=== PATIENT | male | born 1955 | race Hispanic/Latino ===

== ENCOUNTER 2017-10-06 08:31 | Day surgery (SDC) | payer MEDICARE ==
[2017-10-06 09:21] LABS: Basophils % (Auto) 0.9 % (0.0-1.8); Eosinophils # (Auto) 0.1 K/mm3 (0.0-0.4); Eosinophils % (Auto) 2.4 % (0.0-4.3); Hematocrit 40.5 % (35.5-45.6); Hemoglobin 13.8 gm/dl (11.8-15.2); Lymphocytes # (Auto) 0.7 K/mm3 (1.2-5.4); Lymphocytes % (Auto) 12.6 % (13.4-35.0); Mean Corpuscular HGB Conc 34 % (32-34); Mean Corpuscular Hemoglobin 30 pg (28-32); Mean Corpuscular Volume 89 fl (84-94); Monocytes # (Auto) 0.3 K/mm3 (0.0-0.8); Monocytes % (Auto) 5.2 % (0.0-7.3); Platelet Count 235 K/mm3 (140-440); Red Blood Count 4.58 M/mm3 (3.65-5.03)
[2017-10-06 09:32] LABS: BUN/Creatinine Ratio 17; Blood Urea Nitrogen 20 mg/dL (9-20); Calcium 9.2 mg/dL (8.4-10.2); Hemolysis Index 5
[2017-10-06 09:59] LABS: INR 1.01 (0.87-1.13)
[2017-10-06 10:00] LABS: Partial Thromboplastin Time 40.4 Sec. (24.2-36.6)
[2017-10-06] MEDS ORDERED: VERSED IV ONE ×2 (11:14→11:26)
[2017-10-06] MEDS ORDERED: SUBLIMAZE ONE ×3 (11:15→12:26)
[2017-10-06] MEDS ORDERED: XYLOCAINE 1%/ EPI 1:100,000 INFILTRATI ONE (11:16)
[2017-10-06] MEDS ORDERED: SUBLIMAZE IV ONE ×3 (11:26→12:19)
--- NOTE | 2017-10-06 13:03 | Short Stay Summary ---
Short Stay Documentation Date of service: 10/06/17 Narrative H&P: 62 year old male with UC and PSC s/p proctocolectomy and recurrent mucocele which has been drained multiple times. - Allergies and Medications Current Medications: Allergies No Known Allergies Allergy (Unverified 10/06/17 08:32) Home Medications Medication Instructions Recorded Confirmed Last Taken Type Fish Oil 1,000 mg Softgel 1 PO DAILY 10/06/17 10/05/17 History 1 tab Magnesium 1 PO DAILY 10/06/17 10/05/17 History 1 tab Multivitamin [Multiple Vitamins] 1 each PO DAILY 10/06/17 10/06/17 10/05/17 History 1 TAB Ursodiol [Jose] 250 mg PO TIDWM 10/06/17 10/06/17 10/05/17 History 250 mg Vitamin E 1 tab PO 10/06/17 09/28/17 History 1 TAB - Physical exam General appearance: no acute distress Lungs: Normal air movement Gastrointestinal: distended (lower abdomen) Extremities: normal temperature, normal color - Brief post op/procedure progress note Date of procedure: 10/06/17 Pre-op diagnosis: Mucocele Post-op diagnosis: same Procedure: CT guided drainage of the abdomen Anesthesia: local (w/ conscious sedation) Surgeon: SALVADOR ZAMUDIO Estimated blood loss: minimal Condition: stable - Hospital course Hospital course: Ready for discharge - Disposition Condition at discharge: Stable Disposition: DC-01 TO HOME OR SELFCARE - Discharge Diagnoses (1) Abdominal fluid collection Status: Acute (2) Ulcerative colitis Status: Acute (3) Primary sclerosing cholangitis Status: Acute Short Stay Discharge Plan Activity: advance as tolerated Weight Bearing Status: Weight Bear as Tolerated Diet: regular Wound: keep clean and dry, other (remove stitch from left buttocks in 5-7 days ; keep clean and dry until stitches removed) Follow up with: PRIMARY CARE, [Primary Care Provider] - 7 Days
[2017-10-06 13:52] VITALS: BP 141/90
--- NOTE | 2017-10-06 15:11 | Cat Scan Report ---
EXAM: CT guided abdominal fluid collection 16 Khmer drain placement CLINICAL INDICATION: Patient with ulcerative colitis, primary sclerosing cholangitis, status post proctocolectomy with recurrent mucocele which has been drained repeatedly in the past with severe mass effect symptoms who presented requesting drainage. Risks, benefits, and alternatives discussed. DATE: 10/06/17 VISITOR SERVICES INFORMATION ASSISTANT: SALVADOR ZAMUDIO MD MEDICATIONS: Conscious sedation using Versed and fentanyl was performed under guidance of radiologic nursing. Continuous cardiopulmonary monitoring was utilized. PROCEDURE: Following an explanation of the risks, benefits and alternatives; written informed consent was obtained. The patient was brought to the CT suite and placed in the prone position on the CT table. Trekking Guide CT was performed of the abdomen and pelvis. After determining the appropriate site, the skin was infiltrated with lidocaine and a finder needle was placed. Intermittent CT was performed until the desired position was identified. The 18 gauge trocar needle was inserted into the left buttocks into the fluid collection that extended into the abdomen and pelvis. Aspiration was performed and sent to the lab for analysis. J wire was then advanced through the needle and into the collection. The needle was exchanged for multiple dilators that were used to serially dilate over the wire. A 16 Fr APD drain was advanced over the wire and metal stiffener. The metal stiffener and wire were removed. CT scanning was performed. The pigtail was secured and aspirated until no more material could be aspirated. Sterile bandage was applied. The patient tolerated the procedure well. There were no immediate postprocedural complications. FINDINGS: 1. Initial CT demonstrates a large fluid collection in the abdomen and pelvic stent extending into the left buttocks and thigh region. There is a satisfactory window for CT drainage. 2. Intermittent CT demonstrates the 18 gauge needle was placed in the fluid collection. 3. Wire is coiled in the abdomen and pelvic fluid collection. 4. CT documents placement of a 16 Fr drain in the abdominal and pelvic fluid collection. 5. A total of 2850 mL of dark gelatinous material was aspirated through the drain and initial needle. IMPRESSION: Successful CT guided 16 Khmer drain placement in a large abdomen and pelvic mucocele.
--- NOTE | 2017-10-06 15:26 | Cat Scan Report ---
EXAM: CT of the abdomen and pelvis with and without contrast CLINICAL INDICATION: Ulcerative colitis, primary sclerosing cholangitis, colon cancer s/p proctocolectomy, abdominal pain with history of recurrent mucocele drained multiple times in the past DATE: 10/06/17 Interpreting radiologist: SALVADOR ZAMUDIO MD TECHNIQUE: 2.5 MM AXIAL ACQUISITIONS WERE OBTAINED FROM THE LUNG BASES TO THE PROXIMAL FEMUR WITH SAGITTAL AND CORONAL RECONSTRUCTIONS OBTAINED. THIS WAS PERFORMED WITH AND WITHOUT IV CONTRAST. NO ORAL CONTRAST WAS ADMINISTERED. CONTRAST: 100 mL of nonionic contrast FINDINGS: The lung bases demonstrate scarring at the bases with a few 2 mm or less scattered pulmonary nodules which can be compared on prior examinations. Review of prior CT reports mentions this in the past. The visualized portion of the heart is unremarkable. The liver has a nodular contour and is shrunken. The liver has been further evaluated with MRI performed at [place] in April. There is a focal 1 cm lesion in the left lobe of the liver which is low attenuating likely represents a cyst. There are a few focal hyper attenuating lesions which are nonspecific, but may represent regenerating nodules given the shrunken nature of the liver. Please refer to prior MRI at [place] for further details. The right kidney has a focal cyst and is otherwise unremarkable. Right adrenal gland is unremarkable. There is moderate left hydronephrosis with delayed contrast excretion of the left kidney and moderate left hydroureter. The left adrenal gland is unremarkable. Spleen is unremarkable. The pancreas is unremarkable. The abdominal aorta is unremarkable. The left common iliac artery is severely narrowed secondary to mass effect from the large abdominal fluid collection. There is a massive abdominal fluid collection which extends into the pelvis and subsequently extends into the left buttocks region as well as partially erodes the coccyx. This large fluid collection exerts mass effect on the left iliac artery and vein. The patient has an end ileostomy. The bladder is severely distorted with mass effect from the abdominal fluid collection. No aggressive osteolytic or osteoblastic lesions. IMPRESSION: 1. Massive abdominal fluid collection which extends into the abdomen and pelvis displacing most of the bowel, severely narrowing the left iliac artery and vein, partially eroding the coccyx, and exerting significant mass effect on the left ureter with resultant hydronephrosis and hydroureter. 2. The liver has a few focal hyper enhancing lesions which are nonspecific but may represent regenerating nodules. Recommend referring to prior MRI for further details and patient will likely require monitoring of the liver with MRI in the future. 3. Small scattered 2 mm or less pulmonary nodules. These will need be followed to determine stability.
== END 2017-10-06 14:10 | disposition home or self-care (01) ==
LOC: CATHLABREC 08:31
PROVIDERS: ATTEND Radiology Diagnostic Radiology
DX: R88.8 Abnormal findings in other body fluids and substances (principal); K51.90 Ulcerative colitis, unspecified, without complications; K83.0 Cholangitis; E78.00 Pure hypercholesterolemia, unspecified; Z79.899 Other long term (current) drug therapy; Z79.01 Long term (current) use of anticoagulants; Z85.528 Personal history of other malignant neoplasm of kidney; Z85.038 Personal history of other malignant neoplasm of large intestine; Z98.890 Other specified postprocedural states; Z80.9 Family history of malignant neoplasm, unspecified
CPT/HCPCS: 36415; 49083; 74178; 80048; 85025; 85610; 85730; 88112; 88305; C1769; J2250; J3010; Q9967; 10160; 77012

== ENCOUNTER 2018-01-20 06:12 | Day surgery (SDC) | payer MEDICARE ==
[2018-01-20 07:08] LABS: Hemoglobin 13.4 gm/dl (11.8-15.2); Mean Corpuscular HGB Conc 34 % (32-34); Mean Corpuscular Volume 93 fl (84-94); Platelet Count 321 K/mm3 (140-440); Red Blood Count 4.32 M/mm3 (3.65-5.03); Red Cell Distribution Width 15.1 % (13.2-15.2)
[2018-01-20 07:17] LABS: INR 0.93 (0.87-1.13); Partial Thromboplastin Time 31.9 Sec. (24.2-36.6)
[2018-01-20 08:19] LABS: Total Cells Counted 100
[2018-01-20 08:20] LABS: Platelet Estimate Cons; RBC Morphology Normal
[2018-01-20] MEDS ORDERED: VERSED IV ONE ×3 (09:29→10:30)
[2018-01-20] MEDS ORDERED: SUBLIMAZE IV ONE ×2 (09:29→10:17)
[2018-01-20] MEDS ORDERED: SUBLIMAZE ONE (10:00)
[2018-01-20] MEDS ORDERED: XYLOCAINE 1%/ EPI 1:100,000 INFILTRATI ONE (10:02)
[2018-01-20] MEDS ORDERED: VERSED ONE (10:48)
--- NOTE | 2018-01-20 11:47 | Short Stay Summary ---
Short Stay Documentation Date of service: 01/20/18 Narrative H&P: 62 year old male with recurrent mucocele who presents with abdominal pain. - History H&P: obtained from office - Allergies and Medications Current Medications: Allergies No Known Allergies Allergy (Unverified 10/06/17 08:32) Home Medications Medication Instructions Recorded Confirmed Last Taken Type Fish Oil 1,000 mg Softgel 1 tab PO DAILY 10/06/17 01/19/18 History Magnesium 1 tab PO DAILY 10/06/17 01/19/18 History Multivitamin [Multiple Vitamins] 1 each PO DAILY 10/06/17 01/20/18 01/19/18 History Ursodiol [Jose] 500 mg PO BIDWM 10/06/17 01/20/18 01/19/18 History Vitamin E 1 tab PO DAILY 10/06/17 01/19/18 History - Physical exam General appearance: mild distress (abdominal pain) Gastrointestinal: tenderness, distended - Brief post op/procedure progress note Date of procedure: 01/20/18 Pre-op diagnosis: Recurrent mucocele Post-op diagnosis: same Procedure: CT guided drainage of abdominal mucocele 4.5 L removed Anesthesia: local (w/ conscious sedation) Surgeon: SALVADOR ZAMUDIO Estimated blood loss: minimal Condition: stable - Hospital course Hospital course: Ready for discharge. - Disposition Condition at discharge: Stable Disposition: DC-01 TO HOME OR SELFCARE - Discharge Diagnoses (1) Abdominal fluid collection Status: Acute (2) Primary sclerosing cholangitis Status: Acute (3) Ulcerative colitis Status: Acute Short Stay Discharge Plan Activity: advance as tolerated Weight Bearing Status: Weight Bear as Tolerated Diet: regular Wound: keep clean and dry, other (remove stitches in 5 days) Follow up with: PRIMARY CARE, [Primary Care Provider] - 7 Days
--- NOTE | 2018-01-20 13:50 | Cat Scan Report ---
EXAM: CT guided abdominal fluid collection 16 Gabonese drain placement CLINICAL INDICATION: Patient with ulcerative colitis, primary sclerosing cholangitis, status post proctocolectomy with recurrent mucocele which has been drained repeatedly in the past with severe mass effect symptoms who presented requesting drainage. Risks, benefits, and alternatives discussed. DATE: 01/20/18 ICEBOX WORKER: SALVADOR ZAMUDIO MD MEDICATIONS: Conscious sedation using Versed and fentanyl was performed under guidance of radiologic nursing. Continuous cardiopulmonary monitoring was utilized. PROCEDURE: Following an explanation of the risks, benefits and alternatives; written informed consent was obtained. The patient was brought to the CT suite and placed in the prone position on the CT table. Maintenance Associate CT was performed of the abdomen and pelvis. After determining the appropriate site, the skin was infiltrated with lidocaine and a finder needle was placed. Intermittent CT was performed until the desired position was identified. The 18 gauge trocar needle was inserted into the left buttocks into the fluid collection that extended into the abdomen and pelvis. Aspiration was performed and sent to the lab for analysis. J wire was then advanced through the needle and into the collection. The needle was exchanged for multiple dilators that were used to serially dilate over the wire. A 16 Fr APD drain was advanced over the wire and metal stiffener. The metal stiffener and wire were removed. CT scanning was performed. The pigtail was secured and aspirated until no more material could be aspirated. Sterile bandage was applied. The patient tolerated the procedure well. There were no immediate postprocedural complications. FINDINGS: 1. Initial CT demonstrates a large fluid collection in the abdomen and pelvic extending into the left buttocks and thigh region. There is a satisfactory window for CT drainage. 2. Intermittent CT demonstrates the 18 gauge needle was placed in the fluid collection. 3. Wire is coiled in the abdomen and pelvic fluid collection. 4. CT documents placement of a 16 Fr drain in the abdominal and pelvic fluid collection. 5. A total of 4500 mL of dark gelatinous material was aspirated through the drain and initial needle. IMPRESSION: Successful CT guided 16 Gabonese drain placement in a large abdomen and pelvic mucocele.
[2018-01-20 13:53] VITALS: BP 128/86
== END 2018-01-20 13:15 | disposition home or self-care (01) ==
LOC: CATHLABREC 06:12 → EDSTATUS 08:30 → CATHLABREC 13:15
PROVIDERS: ATTEND Radiology Diagnostic Radiology
DX: K51.90 Ulcerative colitis, unspecified, without complications (principal); K83.09 Other cholangitis; E78.00 Pure hypercholesterolemia, unspecified; Z79.899 Other long term (current) drug therapy; Z90.5 Acquired absence of kidney; Z85.528 Personal history of other malignant neoplasm of kidney; Z85.038 Personal history of other malignant neoplasm of large intestine; Z92.21 Personal history of antineoplastic chemotherapy; Z98.890 Other specified postprocedural states; Z80.9 Family history of malignant neoplasm, unspecified
CPT/HCPCS: 36415; 49083; 85007; 85025; 85610; 85730; 88112; C1769; J2250; J3010; 10160; 77012

== ENCOUNTER 2018-08-21 07:42 | Day surgery (SDC) | payer MEDICARE ==
[2018-08-21] MEDS ORDERED: SUBLIMAZE IV ONE ×2 (08:27→13:00)
[2018-08-21] MEDS ORDERED: VERSED IV ONE ×2 (08:27→11:36)
[2018-08-21 08:49] LABS: Hematocrit 36.1 % (35.5-45.6); Hemoglobin 12.3 gm/dl (11.8-15.2); Mean Corpuscular HGB Conc 34 % (32-34); Mean Corpuscular Volume 94 fl (84-94); Platelet Count 270 K/mm3 (140-440); Red Blood Count 3.85 M/mm3 (3.65-5.03); Red Cell Distribution Width 14.6 % (13.2-15.2)
[2018-08-21] MEDS ORDERED: NACL 0.9% 500 ML 500 ML IV SCH (09:00)
[2018-08-21 09:02] LABS: INR 0.93 (0.87-1.13); Partial Thromboplastin Time 28.9 Sec. (24.2-36.6)
[2018-08-21 09:19] LABS: BUN/Creatinine Ratio 17; Blood Urea Nitrogen 19 mg/dL (9-20); Calcium 9.8 mg/dL (8.4-10.2); Hemolysis Index 14
[2018-08-21] MEDS ORDERED: SUBLIMAZE ONE ×2 (11:34→12:03)
[2018-08-21] MEDS ORDERED: XYLOCAINE 1%/ EPI 1:100,000 INFILTRATI ONE (12:04)
--- NOTE | 2018-08-21 12:58 | Short Stay Summary ---
Short Stay Documentation Date of service: 08/21/18 Narrative H&P: 62-year-old male with recurrent mucocele status post surgery with continued increasing in size of the mucocele. Presents for drainage. - History Principal diagnosis: Pelvic fluid collection, ulcerative colitis H&P: obtained from office - Allergies and Medications Current Medications: Allergies No Known Allergies Allergy (Unverified 10/06/17 08:32) Home Medications Medication Instructions Recorded Confirmed Last Taken Type Fish Oil 1,000 mg Softgel 1 tab PO DAILY 10/06/17 08/21/18 08/20/18 History 1 Magnesium 1 tab PO DAILY 10/06/17 08/21/18 08/20/18 History 1 Multivitamin [Multiple Vitamins] 1 each PO DAILY 10/06/17 08/21/18 08/20/18 History 1 Ursodiol [Jose] 500 mg PO BIDWM 10/06/17 08/21/18 08/20/18 History 500mg Vitamin E 1 tab PO DAILY 10/06/17 08/21/18 08/20/18 History 1 Active Medications Fentanyl (Sublimaze) 100 mcg IV ONCE ONE Stop: 08/21/18 13:01 Sodium Chloride (Nacl 0.9% 500 Ml) 500 mls @ 50 mls/hr IV DIRECT NIA Last Admin: 08/21/18 09:36 Dose: 50 mls/hr Documented by: - Physical exam General appearance: no acute distress Lungs: Normal air movement Gastrointestinal: other (pain with palpation of the pelvic) Extremities: normal temperature, normal color - Brief post op/procedure progress note Date of procedure: 08/21/18 Pre-op diagnosis: Pelvic mucocele/fluid collection Post-op diagnosis: same Procedure: 1.75 L removed with 16 Fr drain Anesthesia: local (w/ conscious sedation) Surgeon: SALVADOR ZAMUDIO Estimated blood loss: minimal Condition: stable - Hospital course Hospital course: Ready for discharge. - Disposition Condition at discharge: Stable Disposition: DC-01 TO HOME OR SELFCARE - Discharge Diagnoses (1) Abdominal fluid collection Status: Acute (2) Primary sclerosing cholangitis Status: Acute (3) Ulcerative colitis Status: Acute Short Stay Discharge Plan Activity: advance as tolerated Weight Bearing Status: Weight Bear as Tolerated Diet: regular Wound: keep clean and dry, other (remove stitches in 5 days, keep area clean and dry) Follow up with: ALBARO SANTOS MD [Primary Care Provider] - 7 Days
[2018-08-21 13:10] VITALS: BP 127/85
--- NOTE | 2018-08-22 15:09 | Cat Scan Report ---
EXAM: CT guided abdominal fluid collection 16 Prydeinig drain placement CLINICAL INDICATION: Patient with ulcerative colitis, primary sclerosing cholangitis, status post proctocolectomy with recurrent mucocele which has been drained repeatedly in the past with severe mass effect symptoms who presented requesting drainage. Risks, benefits, and alternatives discussed. DATE: 08/21/18 CHANGE OVER: SALVADOR ZAUMDIO MD MEDICATIONS: Conscious sedation using Versed and fentanyl was performed under guidance of radiologic nursing. Continuous cardiopulmonary monitoring was utilized. PROCEDURE: Following an explanation of the risks, benefits and alternatives; written informed consent was obtained. The patient was brought to the CT suite and placed in the prone position on the CT table. Supply And Distribution Manager CT was performed of the abdomen and pelvis. After determining the appropriate site, the skin was infiltrated with lidocaine and a finder needle was placed. Intermittent CT was performed until the desired position was identified. The 18 gauge trocar needle was inserted into the left buttock into the fluid collection that extended into the abdomen and pelvis. J wire was then advanced through the needle and into the collection. The needle was exchanged for multiple dilators that were used to serially dilate over the wire. A 16 Fr APD drain was advanced over the wire and metal stiffener. The metal stiffener and wire were removed. CT scanning was performed. The pigtail was secured and aspirated until no more material could be aspirated. Sterile bandage was applied. The patient tolerated the procedure well. There were no immediate postprocedural complications. FINDINGS: 1. Initial CT demonstrates a large fluid collection in the abdomen and pelvic extending into the left buttocks and thigh region. There is a satisfactory window for CT drainage. 2. Intermittent CT demonstrates the 18 gauge needle was placed in the fluid collection. 3. Wire is coiled in the abdomen and pelvic fluid collection. 4. CT documents placement of a 16 Fr drain in the abdominal and pelvic fluid collection. 5. A total of 1750 mL of dark gelatinous material was aspirated through the drain and initial needle. IMPRESSION: Successful CT guided 16 Prydeinig drain placement in a large abdomen and pelvic mucocele.
== END 2018-08-21 13:45 | disposition home or self-care (01) ==
LOC: CATHLABREC 07:42
PROVIDERS: ATTEND Radiology Diagnostic Radiology
DX: R19.00 Intra-abdominal and pelvic swelling, mass and lump, unspecified site (principal); Z79.899 Other long term (current) drug therapy; Z80.0 Family history of malignant neoplasm of digestive organs; Z87.442 Personal history of urinary calculi; Z90.5 Acquired absence of kidney; Z85.89 Personal history of malignant neoplasm of other organs and systems; Z98.890 Other specified postprocedural states; Z79.01 Long term (current) use of anticoagulants
CPT/HCPCS: 10160; 36415; 77012; 80048; 85027; 85610; 85730; C1769; J2250; J3010; J7040

== ENCOUNTER 2018-10-23 06:34 | Day surgery (SDC) | payer MEDICARE ==
[2018-10-23] MEDS ORDERED: SUBLIMAZE IV ONE (07:59)
[2018-10-23] MEDS ORDERED: VERSED IV ONE ×2 (07:59→10:34)
[2018-10-23 08:39] LABS: Hematocrit 37.8 % (35.5-45.6); Hemoglobin 12.7 gm/dl (11.8-15.2); Mean Corpuscular HGB Conc 34 % (32-34); Mean Corpuscular Volume 93 fl (84-94); Platelet Count 270 K/mm3 (140-440); Red Blood Count 4.09 M/mm3 (3.65-5.03); Red Cell Distribution Width 15.7 % (13.2-15.2)
[2018-10-23 08:50] LABS: INR 1.15 (0.87-1.13)
[2018-10-23 08:51] LABS: Partial Thromboplastin Time 33.1 Sec. (24.2-36.6)
[2018-10-23 08:52] LABS: BUN/Creatinine Ratio 24; Blood Urea Nitrogen 29 mg/dL (9-20); Calcium 9.5 mg/dL (8.4-10.2); Hemolysis Index 7
[2018-10-23] MEDS ORDERED: NACL 0.9% 500 ML 0 ML ONE (08:54)
[2018-10-23] MEDS ORDERED: SUBLIMAZE ONE (10:34)
[2018-10-23] MEDS ORDERED: VERSED IV NR (12:00)
[2018-10-23] MEDS ORDERED: SUBLIMAZE IV NR (12:00)
[2018-10-23 14:49] VITALS: BP 113/79
--- NOTE | 2018-10-23 15:26 | Short Stay Summary ---
Short Stay Documentation Date of service: 10/23/18 Narrative H&P: Patient returns for drainage of his mucocele which is a chronic process. Having abdominal pain and fullness. - History Principal diagnosis: Recurrent fluid collection (mucocele) H&P: obtained from office Past Medical History: other (UC with PSC and surgery including proctocolectomy and residual mucocele with recent chemotherapy infusion into the mucocele) - Allergies and Medications Current Medications: Allergies No Known Allergies Allergy (Unverified 10/06/17 08:32) Home Medications Medication Instructions Recorded Confirmed Last Taken Type Fish Oil 1,000 mg Softgel 1 tab PO DAILY 10/06/17 08/21/18 08/20/18 History 1 Magnesium 1 tab PO DAILY 10/06/17 08/21/18 08/20/18 History 1 Multivitamin [Multiple Vitamins] 1 each PO DAILY 10/06/17 08/21/18 08/20/18 History 1 Ursodiol [Jose] 500 mg PO BIDWM 10/06/17 08/21/18 08/20/18 History 500mg Vitamin E 1 tab PO DAILY 10/06/17 08/21/18 08/20/18 History 1 - Physical exam General appearance: mild distress (abdominal and left groin pain from mucocele) Lungs: Normal air movement Gastrointestinal: tenderness (along abdomen and left groin region) - Brief post op/procedure progress note Date of procedure: 10/23/18 Pre-op diagnosis: Recurrent abdominal fluid collection / mucocele Post-op diagnosis: same Procedure: CT guided drainage of the abdominal mucocele with a 16 Fr drain Anesthesia: local (w/ conscious sedation) Surgeon: SALVADOR ZAMUDIO Estimated blood loss: minimal Specimen disposition: discarded Condition: stable - Hospital course Hospital course: Tolerated procedure. Ready for discharge. - Disposition Condition at discharge: Good Disposition: DC-01 TO HOME OR SELFCARE - Discharge Diagnoses (1) Abdominal fluid collection Status: Acute (2) Primary sclerosing cholangitis Status: Acute (3) Ulcerative colitis Status: Acute Short Stay Discharge Plan Activity: advance as tolerated Weight Bearing Status: Weight Bear as Tolerated Diet: regular Wound: keep clean and dry, other (remove stitches in 5 days) Additional Instructions: Remove sutures in 5 days, follow up with Primary Medical Doctor in 1 week, return to Emergency Room (ER) for medical emergencies. Follow up with: ALBARO SANTOS MD [Primary Care Provider] - 7 Days
--- NOTE | 2018-10-31 11:26 | Cat Scan Report ---
EXAM: CT guided abdominal fluid collection 16 Danish drain placement CLINICAL INDICATION: Patient with ulcerative colitis, primary sclerosing cholangitis, status post proctocolectomy with recurrent mucocele which has been drained repeatedly in the past with severe mass effect symptoms who presented requesting drainage. Risks, benefits, and alternatives discussed. DATE: 10/23/18 MANAGER AUDIO: SALVADOR ZAMUDIO MD MEDICATIONS: Conscious sedation using Versed and fentanyl was performed under guidance of radiologic nursing. Continuous cardiopulmonary monitoring was utilized. PROCEDURE: Following an explanation of the risks, benefits and alternatives; written informed consent was obtained. The patient was brought to the CT suite and placed in the prone position on the CT table. Traveling Repair Accountant CT was performed of the abdomen and pelvis. After determining the appropriate site, the skin was infiltrated with lidocaine and a finder needle was placed. Intermittent CT was performed until the desired position was identified. The 18 gauge trocar needle was inserted into the left buttock into the fluid collection that extended into the abdomen and pelvis. J wire was then advanced through the needle and into the collection. The needle was exchanged for multiple dilators that were used to serially dilate over the wire. A 16 Fr APD drain was advanced over the wire and metal stiffener. The metal stiffener and wire were removed. CT scanning was performed. The pigtail was secured and aspirated until no more material could be aspirated. Sterile bandage was applied. The patient tolerated the procedure well. There were no immediate postprocedural complications. FINDINGS: 1. Initial CT demonstrates a large fluid collection in the abdomen and pelvic extending into the left buttocks and thigh region. There is a satisfactory window for CT drainage. 2. Intermittent CT demonstrates the 18 gauge needle was placed in the fluid collection. 3. Wire is coiled in the abdomen and pelvic fluid collection. 4. CT documents placement of a 16 Fr drain in the abdominal and pelvic fluid collection. 5. A total of 8200-4656 mL of dark gelatinous material was aspirated through the drain and initial needle. IMPRESSION: Successful CT guided 16 Danish drain placement in a large abdomen and pelvic mucocele.
== END 2018-10-23 13:40 | disposition home or self-care (01) ==
LOC: CATHLABREC 06:34 → EDSTATUS 08:30 → CATHLABREC 13:40
PROVIDERS: ATTEND Radiology Diagnostic Radiology
DX: R19.00 Intra-abdominal and pelvic swelling, mass and lump, unspecified site (principal); Z85.038 Personal history of other malignant neoplasm of large intestine; Z87.442 Personal history of urinary calculi; Z90.5 Acquired absence of kidney; Z98.890 Other specified postprocedural states; Z79.01 Long term (current) use of anticoagulants
CPT/HCPCS: 36415; 72192; 80048; 85027; 85610; 85730; C1769; J2250; J3010; 10160; 77012; J7040

== ENCOUNTER 2018-12-04 07:16 | Day surgery (SDC) | payer MEDICARE ==
[2018-12-04 08:34] LABS: Basophils % (Auto) 0.6 % (0.0-1.8); Eosinophils % (Auto) 0.1 % (0.0-4.3); Hematocrit 37.2 % (35.5-45.6); Hemoglobin 12.5 gm/dl (11.8-15.2); Lymphocytes # (Auto) 0.9 K/mm3 (1.2-5.4); Lymphocytes % (Auto) 15.1 % (13.4-35.0); Mean Corpuscular HGB Conc 34 % (32-34); Mean Corpuscular Volume 91 fl (84-94); Monocytes # (Auto) 0.4 K/mm3 (0.0-0.8); Monocytes % (Auto) 6.4 % (0.0-7.3); Platelet Count 303 K/mm3 (140-440); Red Blood Count 4.08 M/mm3 (3.65-5.03); Red Cell Distribution Width 15.5 % (13.2-15.2)
[2018-12-04 08:37] LABS: INR 1.07 (0.87-1.13)
--- NOTE | 2018-12-04 10:05 | Short Stay Summary ---
Short Stay Documentation Date of service: 12/04/18 Narrative H&P: 63-year-old male with history of ulcerative colitis status post proctocolectomy with end colostomy with residual mucocele and pseudomyxoma of the cyst who has been refractory to all surgical attempts to remove cyst and is palliated through CT-guided drainage of the mucocele. - History Principal diagnosis: pseudomyxoma peritonei Past Medical History: cancer (story of colon cancer), liver disease Past Surgical History: bowel surgery, Other (stents of bowel surgery) Social history: - Allergies and Medications Current Medications: Allergies acetaminophen [From Percocet] Allergy (Unverified 12/04/18 07:17) Itching oxycodone [From Percocet] Allergy (Unverified 12/04/18 07:17) Itching Home Medications Medication Instructions Recorded Confirmed Last Taken Type Fish Oil 1,000 mg Softgel 1 tab PO DAILY 10/06/17 12/04/18 12/03/18 History Magnesium 1 tab PO DAILY 10/06/17 12/04/18 12/03/18 History Multivitamin [Multiple Vitamins] 1 each PO DAILY 10/06/17 12/04/18 12/03/18 History Ursodiol [Jose] 500 mg PO BIDWM 10/06/17 12/04/18 12/03/18 History Vitamin E 1 tab PO DAILY 10/06/17 12/04/18 12/03/18 History - Physical exam General appearance: mild distress (lower abdominal/pelvic discomfort) Gastrointestinal: distended (lower abdominal/pelvic) - Brief post op/procedure progress note Date of procedure: 12/04/18 Pre-op diagnosis: pseudomyxoma peritonei Post-op diagnosis: same Procedure: CT-guided drainage of abdominal fluid collection Anesthesia: local (with conscious sedation) Surgeon: SALVADOR ZAMUDIO Estimated blood loss: minimal Condition: stable - Hospital course Hospital course: Tolerated procedure without issue. - Disposition Condition at discharge: Stable Disposition: DC-01 TO HOME OR SELFCARE - Discharge Diagnoses (1) Abdominal fluid collection Status: Acute (2) Primary sclerosing cholangitis Status: Acute (3) Ulcerative colitis Status: Acute Short Stay Discharge Plan Activity: advance as tolerated Weight Bearing Status: Weight Bear as Tolerated Diet: regular Wound: keep clean and dry, other (remove stitches in 7 days ; remove tegaderm in 24-48 hrs) Follow up with: ALBARO SANTOS MD [Primary Care Provider] - 7 Days
[2018-12-04] MEDS ORDERED: MIDAZOLAM 5 MG/5 ML INJ MDV IV NR ×2 (10:50→13:00)
[2018-12-04] MEDS ORDERED: fentaNYL 100 MCG/2 ML INJ IV NR (10:50)
[2018-12-04] MEDS ORDERED: LIDOCAINE 1%/EPINEPHRINE 1:100,000 VIAL (20 ML) INFILTRATI ONE (11:53)
[2018-12-04] MEDS ORDERED: fentaNYL 100 MCG/2 ML INJ ONE (12:03)
[2018-12-04] MEDS ORDERED: SODIUM CHLORIDE 0.9% 1000 ML 1,000 ML ONE (12:13)
[2018-12-04] MEDS ORDERED: fentaNYL 100 MCG/2 ML INJ IV ONE (13:45)
[2018-12-04] MEDS ORDERED: SODIUM CHLORIDE 0.9% 1000 ML 1,000 ML IV ONE (13:45)
[2018-12-04 13:55] VITALS: BP 116/68
[2018-12-04 14:10] LABS: BUN/Creatinine Ratio TNR; Blood Urea Nitrogen TNR mg/dL (9-20); Calcium TNR mg/dL (8.4-10.2); Hemolysis Index TNR
--- NOTE | 2018-12-04 14:49 | Cat Scan Report ---
CT ABDOMEN AND PELVIS WITH CONTRAST HISTORY: Pseudomyxoma peritonei, chronic. Primary sclerosing cholangitis. COMPARISON: 06/06/2017 TECHNIQUE: Axial CT images were obtained through the abdomen and pelvis after 100 cc of Omnipaque 300 intravenously. Sagittal and coronal reformatted images. All CT scans at this location are performed using CT dose reduction for ALARA by means of automated exposure control. FINDINGS: CT ABDOMEN: Lung Bases: No significant abnormality. Liver: Liver is normal size. Mild surface lobularity to the liver could represent cirrhotic changes o r pseudocirrhosis. No focal liver mass is appreciated. Biliary: No significant abnormality. Spleen: No significant abnormality. Unenlarged. Pancreas: No significant abnormality. Adrenals: No significant abnormality. Kidneys: The right kidney and collecting system are unremarkable. 2.3 cm exophytic cyst from the infe rior pole is unchanged. Moderate to severe left hydronephrosis with diffuse left cortical thinning is also unchanged. This appears to be secondary to distal obstruction from a pelvic fluid collection. Lymphatics: No lymphadenopathy. Vasculature: No significant abnormality. Bowel/Peritoneum: Multiple abdominal surgeries are suspected. Ostomy site in the right lower quadrant is noted. There is no evidence for bowel obstruction or focal inflammation. CT PELVIS: : There is a moderate-sized fluid collection in the pelvis extending from the pelvic brim inferiorl y into the left gluteal subcutaneous tissues consistent with the patient's history of pseudomyxoma pe ritonei. This collection measures up to 11.6 x 7.5 cm in axial plane but has decreased significantly since the previous exam. This collection is decreased by at least 50-75%. No new collections are iden tified. The bladder is displaced anteriorly but grossly unremarkable. There appears to be obstruction of the distal left ureter at this level. Osseous Structures: No significant abnormality. Additional Findings: None IMPRESSION: Pseudomyxoma peritonei as described above which has decreased since the comparison exam. Signer Name: aMrk Reynolds Jr, MD Signed: 12/04/2018 2:44 PM Workstation Name: [id number]
--- NOTE | 2018-12-05 15:30 | Cat Scan Report ---
EXAM: CT guided abdominal fluid collection 16 Gabonese drain placement CLINICAL INDICATION: Patient with ulcerative colitis, primary sclerosing cholangitis, status post proctocolectomy with recurrent mucocele which has been drained repeatedly in the past with severe mass effect symptoms who presented requesting drainage. Risks, benefits, and alternatives discussed. DATE: 12/04/18 AUTOMATION LEAD: SALVADOR ZAMUDIO MD MEDICATIONS: Conscious sedation using Versed and fentanyl was performed under guidance of radiologic nursing. Continuous cardiopulmonary monitoring was utilized. PROCEDURE: Following an explanation of the risks, benefits and alternatives; written informed consent was obtained. The patient was brought to the CT suite and placed in the prone position on the CT table. Open Hearth Furnace Operator Helper CT was performed of the abdomen and pelvis. After determining the appropriate site, the skin was infiltrated with lidocaine and a finder needle was placed. Intermittent CT was performed until the desired position was identified. The 18 gauge trocar needle was inserted into the left buttock into the fluid collection that extended into the abdomen and pelvis. J wire was then advanced through the needle and into the collection. The needle was exchanged for multiple dilators that were used to serially dilate over the wire. A 16 Fr APD drain was advanced over the wire and metal stiffener. The metal stiffener and wire were removed. CT scanning was performed. The pigtail was secured and aspirated until no more material could be aspirated. Sterile bandage was applied. The patient tolerated the procedure well. There were no immediate postprocedural complications. FINDINGS: 1. Initial CT demonstrates a large fluid collection in the abdomen and pelvic extending into the left buttocks and thigh region. There is a satisfactory window for CT drainage. 2. Intermittent CT demonstrates the 18 gauge needle was placed in the fluid collection. 3. Wire is coiled in the abdomen and pelvic fluid collection. 4. CT documents placement of a 16 Fr drain in the abdominal and pelvic fluid collection. 5. A total of 6751-7121 mL of dark gelatinous material was aspirated through the drain and initial needle. IMPRESSION: Successful CT guided 16 Gabonese drain placement in a large abdomen and pelvic mucocele.
== END 2018-12-04 14:15 | disposition home or self-care (01) ==
LOC: CATHLABREC 07:16 → EDSTATUS 08:30 → CATHLABREC 14:15
PROVIDERS: ATTEND Radiology Diagnostic Radiology
DX: R19.00 Intra-abdominal and pelvic swelling, mass and lump, unspecified site (principal); K51.90 Ulcerative colitis, unspecified, without complications; K83.09 Other cholangitis; Z90.49 Acquired absence of other specified parts of digestive tract
CPT/HCPCS: 36415; 49418; 74177; 77012; 80048; 85025; 85610; C1769; J2250; J3010; J7030; Q9967; 10160

== ENCOUNTER 2019-01-02 07:45 | Day surgery (SDC) | payer MEDICARE ==
[2019-01-02] MEDS ORDERED: fentaNYL 100 MCG/2 ML INJ IV ONE ×2 (08:47→12:00)
[2019-01-02] MEDS ORDERED: MIDAZOLAM 5 MG/5 ML INJ MDV IV ONE (08:47)
[2019-01-02 09:30] LABS: BUN/Creatinine Ratio 26; Blood Urea Nitrogen 31 mg/dL (9-20); Calcium 9.2 mg/dL (8.4-10.2); Hemolysis Index 68
[2019-01-02 09:31] LABS: INR 1.15 (0.87-1.13)
[2019-01-02 09:32] LABS: Partial Thromboplastin Time 42.5 Sec. (24.2-36.6)
[2019-01-02 09:45] LABS: Hematocrit 36.4 % (35.5-45.6); Mean Corpuscular HGB Conc 33 % (32-34); Mean Corpuscular Volume 92 fl (84-94); Platelet Count 284 K/mm3 (140-440); Red Blood Count 3.97 M/mm3 (3.65-5.03)
[2019-01-02] MEDS ORDERED: LIDOCAINE 1%/EPINEPHRINE 1:100,000 VIAL (20 ML) INFILTRATI ONE (10:45)
[2019-01-02] MEDS ORDERED: fentaNYL 100 MCG/2 ML INJ ONE (11:00)
[2019-01-02 11:16] LABS: Band Neutrophils # (Manual) 0.1 K/mm3; Basophils % (Manual) 0 % (0.0-1.8); Eosinophils % (Manual) 0 % (0.0-4.3); Platelet Estimate Consistent w Auto; RBC Morphology Normal; Total Cells Counted 100
--- NOTE | 2019-01-02 12:17 | Short Stay Summary ---
Short Stay Documentation Date of service: 01/02/19 Narrative H&P: 63-year-old male with history of ulcerative colitis status post proctocolectomy with end colostomy with residual mucocele and pseudomyxoma of the cyst who has been refractory to all surgical attempts to remove cyst and is palliated through CT-guided drainage of the mucocele. - History Principal diagnosis: Pseudomyxoma peritonei Past Medical History: cancer (history of colon cancer), liver disease (PSC) Past Surgical History: bowel surgery, Other (bladder surgery) Social history: - Allergies and Medications Current Medications: Allergies acetaminophen [From Percocet] Allergy (Verified 12/05/18 06:57) Itching oxycodone [From Percocet] Allergy (Verified 12/05/18 06:57) Itching Home Medications Medication Instructions Recorded Confirmed Last Taken Type Fish Oil 1,000 mg Softgel 1 tab PO DAILY 10/06/17 01/02/19 01/01/19 History 1 Magnesium 1 tab PO DAILY 10/06/17 01/02/19 01/01/19 History 1 Multivitamin [Multiple Vitamins] 1 each PO DAILY 10/06/17 01/02/19 01/01/19 History 1 Ursodiol [Jose] 500 mg PO BIDWM 10/06/17 01/02/19 01/01/19 History 500 mg Vitamin E 1 tab PO DAILY 10/06/17 01/02/19 01/01/19 History 1 - Physical exam General appearance: no acute distress Lungs: Normal air movement Gastrointestinal: other (lower abdominal distention/discomfort and buttocks discomfort) - Brief post op/procedure progress note Date of procedure: 01/02/19 Pre-op diagnosis: pseudomyxoma peritonei Post-op diagnosis: same Procedure: CT-guided drainage of abdominopelvic fluid collection Anesthesia: local (w/ conscious sedation) Surgeon: SALVADOR ZAMUDIO Estimated blood loss: minimal Condition: stable - Hospital course Hospital course: Tolerated procedure without issue. - Disposition Condition at discharge: Stable Disposition: DC-01 TO HOME OR SELFCARE - Discharge Diagnoses (1) Abdominal fluid collection Status: Acute (2) Primary sclerosing cholangitis Status: Acute (3) Ulcerative colitis Status: Acute Short Stay Discharge Plan Activity: advance as tolerated Weight Bearing Status: Weight Bear as Tolerated Wound: other (remove tegaderm in 24-48 hrs, remove stitches in 7 days) Follow up with: PRIMARY CARE,MD [Primary Care Provider] - 7 Days
[2019-01-02 12:21] VITALS: BP 111/79
--- NOTE | 2019-01-09 14:31 | Cat Scan Report ---
EXAM: CT guided abdominal fluid collection 16 Swedish drain placement CLINICAL INDICATION: Patient with ulcerative colitis, primary sclerosing cholangitis, status post proctocolectomy with recurrent mucocele which has been drained repeatedly in the past with severe mass effect symptoms who presented requesting drainage. Risks, benefits, and alternatives discussed. DATE: 01/02/19 ROLLOUT MANAGER: SALVADOR ZAMUDIO MD MEDICATIONS: Conscious sedation using Versed and fentanyl was performed under guidance of radiologic nursing. Continuous cardiopulmonary monitoring was utilized. PROCEDURE: Following an explanation of the risks, benefits and alternatives; written informed consent was obtained. The patient was brought to the CT suite and placed in the prone position on the CT table. Reimbursement Spec CT was performed of the abdomen and pelvis. After determining the appropriate site, the skin was infiltrated with lidocaine and a finder needle was placed. Intermittent CT was performed until the desired position was identified. The 18 gauge trocar needle was inserted into the left buttock into the fluid collection that extended into the abdomen and pelvis. J wire was then advanced through the needle and into the collection. The needle was exchanged for multiple dilators that were used to serially dilate over the wire. A 16 Fr APD drain was advanced over the wire and metal stiffener. The metal stiffener and wire were removed. CT scanning was performed. The pigtail was secured and aspirated until no more material could be aspirated. Sterile bandage was applied. The patient tolerated the procedure well. There were no immediate postprocedural complications. FINDINGS: 1. Initial CT demonstrates a large fluid collection in the abdomen and pelvic extending into the left buttocks and thigh region. There is a satisfactory window for CT drainage. 2. Intermittent CT demonstrates the 18 gauge needle was placed in the fluid collection. 3. Wire is coiled in the abdomen and pelvic fluid collection. 4. CT documents placement of a 16 Fr drain in the abdominal and pelvic fluid collection. 5. A total of 2250 mL of dark gelatinous material was aspirated through the drain and initial needle. IMPRESSION: Successful CT guided 16 Swedish drain placement in a large abdomen and pelvic mucocele.
== END 2019-01-02 12:35 | disposition home or self-care (01) ==
LOC: CATHLABREC 07:45 → EDSTATUS 08:30 → CATHLABREC 12:35
PROVIDERS: ATTEND Radiology Diagnostic Radiology
DX: K51.80 Other ulcerative colitis without complications (principal); R19.00 Intra-abdominal and pelvic swelling, mass and lump, unspecified site; K83.09 Other cholangitis; Z98.890 Other specified postprocedural states; Z93.3 Colostomy status; Z79.899 Other long term (current) drug therapy; Z85.068 Personal history of other malignant neoplasm of small intestine; Z87.442 Personal history of urinary calculi; Z94.0 Kidney transplant status; Z88.8 Allergy status to other drugs, medicaments and biological substances
CPT/HCPCS: 36415; 49406; 80048; 85007; 85025; 85610; 85730; C1769; J2250; J3010; 10160; 77012

== ENCOUNTER 2019-03-05 07:19 | Day surgery (SDC) | payer MEDICARE ==
[2019-03-05] MEDS ORDERED: MIDAZOLAM 5 MG/5 ML INJ MDV IV NR (08:30)
[2019-03-05 08:41] LABS: Calcium 9.8 mg/dL (8.4-10.2)
[2019-03-05] MEDS ORDERED: SODIUM CHLORIDE 0.9% 500 ML 0 ML ONE (08:53)
[2019-03-05 08:59] LABS: Basophils % (Auto) 0.7 % (0.0-1.8); Hematocrit 37.6 % (35.5-45.6); Hemoglobin 12.6 gm/dl (11.8-15.2); Lymphocytes # (Auto) 0.8 K/mm3 (1.2-5.4); Lymphocytes % (Auto) 14.5 % (13.4-35.0); Mean Corpuscular HGB Conc 34 % (32-34); Mean Corpuscular Volume 90 fl (84-94); Monocytes # (Auto) 0.4 K/mm3 (0.0-0.8); Monocytes % (Auto) 7.6 % (0.0-7.3); Platelet Count 290 K/mm3 (140-440); Red Blood Count 4.19 M/mm3 (3.65-5.03); Red Cell Distribution Width 15.4 % (13.2-15.2)
[2019-03-05] MEDS: fentaNYL 100 MCG/2 ML INJ IV NR (09:29)
--- NOTE | 2019-03-05 10:45 | Short Stay Summary ---
Short Stay Documentation Date of service: 03/05/19 Narrative H&P: 63-year-old male with history of ulcerative colitis status post proctocolectomy with end colostomy with residual mucocele and pseudomyxoma of the cyst who has been refractory to all surgical attempts to remove cyst and is palliated through CT-guided drainage of the mucocele. - History Principal diagnosis: Pseudomyxoma peritonei Past Medical History: cancer (history of colon cancer), liver disease (PSC) Past Surgical History: bowel surgery, Other (bladder surgery) Social history: - History Principal diagnosis: Pseudomyxoma peritonei - Allergies and Medications Current Medications: Allergies acetaminophen [From Percocet] Allergy (Verified 12/05/18 06:57) Itching oxycodone [From Percocet] Allergy (Verified 12/05/18 06:57) Itching Home Medications Medication Instructions Recorded Confirmed Last Taken Type Magnesium 1 tab PO DAILY 10/06/17 03/05/19 03/04/19 History 1 Multivitamin [Multiple Vitamins] 1 each PO DAILY 10/06/17 03/05/19 03/04/19 History 1 Ursodiol [Jose] 500 mg PO BIDWM 10/06/17 03/05/19 03/04/19 History 500 mg Cholecalciferol Vit D3 [Vitamin D3 50,000 units PO QWEEK 02/05/19 03/05/19 03/04/19 History 1,000 UNIT TAB] 1 cephALEXin [Keflex] 500 mg PO Q12HR #14 cap 03/05/19 Unknown Rx Active Medications Fentanyl (Sublimaze) 100 mcg IV ONCE NR Stop: 03/05/19 15:00 Midazolam HCl (Versed) 5 mg IV ONCE NR Stop: 03/05/19 15:00 - Physical exam General appearance: mild distress (left buttock pain and pelvic pain, chronic) Lungs: Normal air movement Gastrointestinal: other (pain at left distented buttock region and pelvic discomfort) - Brief post op/procedure progress note Date of procedure: 03/05/19 Pre-op diagnosis: Pneudomyxoma peritonei Post-op diagnosis: same Procedure: CT guided drainage of the pelvic fluid collection through a transgluteal approach with a 16 Fr APD drain Anesthesia: local (w/ conscious sedation) Surgeon: SALVADOR ZAMUDIO Estimated blood loss: minimal Condition: stable - Hospital course Hospital course: Tolerated procedure without issue. Ready for discharge. - Disposition Condition at discharge: Stable Disposition: DC-01 TO HOME OR SELFCARE - Discharge Diagnoses (1) Abdominal fluid collection Status: Acute (2) Primary sclerosing cholangitis Status: Acute (3) Ulcerative colitis Status: Acute Short Stay Discharge Plan Activity: advance as tolerated Weight Bearing Status: Weight Bear as Tolerated Diet: regular Wound: keep clean and dry (remove tegaderm in 24-48 hrs, remove stitches in 7 days) Follow up with: PRIMARY CARE, [Primary Care Provider] - 7 Days Prescriptions: cephALEXin [Keflex] 500 mg PO Q12HR #14 cap
[2019-03-05 13:48] VITALS: BP 135/88
--- NOTE | 2019-03-20 16:10 | Cat Scan Report ---
EXAM: CT guided abdominal fluid collection 16 Arabic drain placement CLINICAL INDICATION: Patient with ulcerative colitis, primary sclerosing cholangitis, status post proctocolectomy with recurrent mucocele which has been drained repeatedly in the past with severe mass effect symptoms who presented requesting drainage. Risks, benefits, and alternatives discussed. DATE: 03/05/2019 JUNIOR GRAPHIC DESIGNER: SALVADOR ZAMUDIO MD MEDICATIONS: Conscious sedation using Versed and fentanyl was performed under guidance of radiologic nursing. Continuous cardiopulmonary monitoring was utilized. PROCEDURE: Following an explanation of the risks, benefits and alternatives; written informed consent was obtained. The patient was brought to the CT suite and placed in the prone position on the CT table. Waste Water Operator CT was performed of the abdomen and pelvis. After determining the appropriate site, the skin was infiltrated with lidocaine and a finder needle was placed. Intermittent CT was performed until the desired position was identified. The 18 gauge trocar needle was inserted into the left buttock into the fluid collection that extended into the abdomen and pelvis. J wire was then advanced through the needle and into the collection. The needle was exchanged for multiple dilators that were used to serially dilate over the wire. A 16 Fr APD drain was advanced over the wire and metal stiffener. The metal stiffener and wire were removed. CT scanning was performed. The pigtail was secured and aspirated until no more material could be aspirated. Sterile bandage was applied. The patient tolerated the procedure well. There were no immediate postprocedural complications. FINDINGS: 1. Initial CT demonstrates a large fluid collection in the abdomen and pelvic extending into the left buttocks and thigh region. There is a satisfactory window for CT drainage. 2. Intermittent CT demonstrates the 18 gauge needle was placed in the fluid collection. 3. Wire is coiled in the abdomen and pelvic fluid collection. 4. CT documents placement of a 16 Fr drain in the abdominal and pelvic fluid collection. 5. A total of 2250 mL of dark gelatinous material was aspirated through the drain and initial needle. IMPRESSION: Successful CT guided 16 Arabic drain placement in a large abdomen and pelvic mucocele.
== END 2019-03-05 12:10 | disposition home or self-care (01) ==
LOC: CATHLABREC 07:19 → EDSTATUS 08:30 → CATHLABREC 12:10
PROVIDERS: ATTEND Radiology Diagnostic Radiology
DX: R19.00 Intra-abdominal and pelvic swelling, mass and lump, unspecified site (principal); K51.80 Other ulcerative colitis without complications; K83.09 Other cholangitis
CPT/HCPCS: 10160; 36415; 77012; 80048; 85025; J2250; J3010; J7040

== ENCOUNTER 2019-04-02 07:14 | Day surgery (SDC) | payer MEDICARE ==
[2019-04-02] MEDS ORDERED: fentaNYL 100 MCG/2 ML INJ IV NR (07:45)
[2019-04-02] MEDS ORDERED: MIDAZOLAM 5 MG/5 ML INJ MDV IV NR (07:45)
[2019-04-02] MEDS ORDERED: SODIUM CHLORIDE 0.9% 500 ML 500 ML IV SCH (08:00)
[2019-04-02 08:05] LABS: INR 1.02 (0.87-1.13)
[2019-04-02 08:06] LABS: Partial Thromboplastin Time 38.6 Sec. (24.2-36.6)
[2019-04-02 08:13] LABS: Basophils % (Auto) 0.6 % (0.0-1.8); Eosinophils % (Auto) 0.3 % (0.0-4.3); Hematocrit 41.3 % (35.5-45.6); Hemoglobin 13.8 gm/dl (11.8-15.2); Lymphocytes % (Auto) 14.2 % (13.4-35.0); Mean Corpuscular HGB Conc 33 % (32-34); Mean Corpuscular Volume 90 fl (84-94); Monocytes # (Auto) 0.5 K/mm3 (0.0-0.8); Monocytes % (Auto) 6.5 % (0.0-7.3); Platelet Count 363 K/mm3 (140-440); Red Cell Distribution Width 16.2 % (13.2-15.2)
[2019-04-02 08:15] LABS: Calcium 9.7 mg/dL (8.4-10.2)
[2019-04-02] MEDS ORDERED: fentaNYL 100 MCG/2 ML INJ IV ONE (09:08)
[2019-04-02] MEDS ORDERED: fentaNYL 100 MCG/2 ML INJ ONE (09:09)
--- NOTE | 2019-04-02 10:02 | Short Stay Summary ---
Short Stay Documentation Date of service: 04/02/19 Narrative H&P: 63-year-old male with history of ulcerative colitis status post proctocolectomy with end colostomy with residual mucocele and pseudomyxoma of the cyst who has been refractory to all surgical attempts to remove cyst and is palliated through CT-guided drainage of the mucocele. - History Principal diagnosis: Pseudomyxoma peritonei Past Medical History: cancer (history of colon cancer), liver disease (PSC) Past Surgical History: bowel surgery, Other (bladder surgery) Social history: - History Principal diagnosis: Pseudomyxoma peritonei - Allergies and Medications Current Medications: Allergies acetaminophen [From Percocet] Allergy (Verified 12/05/18 06:57) Itching oxycodone [From Percocet] Allergy (Verified 12/05/18 06:57) Itching Home Medications Medication Instructions Recorded Confirmed Last Taken Type Magnesium 1 tab PO DAILY 10/06/17 04/02/19 04/01/19 History 1 TAB Multivitamin [Multiple Vitamins] 1 each PO DAILY 10/06/17 04/02/19 04/01/19 History 1 TAB ursodioL [Jose] 500 mg PO BIDWM 10/06/17 04/02/19 04/01/19 History 1 tAB Cholecalciferol Vit D3 [Vitamin D3 50,000 units PO QWEEK 02/05/19 04/02/19 04/01/19 History 1,000 UNIT TAB] 1 TAB cephALEXin [Keflex] 500 mg PO Q12HR #14 cap 03/05/19 04/02/19 04/01/19 Rx 1 TAB Active Medications Fentanyl (Sublimaze) 100 mcg IV ONCE NR Stop: 04/02/19 13:00 Last Admin: 04/02/19 09:06 Dose: 100 mcg Documented by: Sodium Chloride (Nacl 0.9% 500 Ml) 500 mls @ 50 mls/hr IV DIRECT NIA Last Admin: 04/02/19 08:18 Dose: 50 mls/hr Documented by: Midazolam HCl (Versed) 5 mg IV ONCE NR Stop: 04/02/19 13:00 Last Admin: 04/02/19 09:10 Dose: 3 mg Documented by: - Physical exam General appearance: no acute distress Lungs: Normal air movement Gastrointestinal: distended - Brief post op/procedure progress note Date of procedure: 04/02/19 Pre-op diagnosis: Pseudomyxoma peritonei/recurrent mucocele/fluid collection Post-op diagnosis: same Procedure: 1. CT guided drainage of the pelvic fluid collection with a 16 Fr APD drain Anesthesia: local (w/ conscious sedation) Surgeon: SALVADOR ZAMUDIO Estimated blood loss: minimal Condition: stable - Hospital course Hospital course: Ready for discharge - Disposition Condition at discharge: Stable Disposition: DC-01 TO HOME OR SELFCARE - Discharge Diagnoses (1) Abdominal fluid collection Status: Acute (2) Primary sclerosing cholangitis Status: Acute (3) Ulcerative colitis Status: Acute Short Stay Discharge Plan Activity: advance as tolerated Weight Bearing Status: Weight Bear as Tolerated Diet: regular Wound: keep clean and dry, other (remove stitches in 7 days) Follow up with: PRIMARY CAREMD [Primary Care Provider] - 7 Days
[2019-04-02 10:59] VITALS: BP 115/77
--- NOTE | 2019-04-09 11:56 | Cat Scan Report ---
EXAM: CT guided abdominal fluid collection 16 Amharic drain placement CLINICAL INDICATION: Patient with ulcerative colitis, primary sclerosing cholangitis, status post proctocolectomy with recurrent mucocele which has been drained repeatedly in the past with severe mass effect symptoms who presented requesting drainage. Risks, benefits, and alternatives discussed. DATE: 04/02/2019 CALL CENTER COORDINATOR: SALVADOR ZAMUDIO MD MEDICATIONS: Conscious sedation using Versed and fentanyl was performed under guidance of radiologic nursing. Continuous cardiopulmonary monitoring was utilized. PROCEDURE: Following an explanation of the risks, benefits and alternatives; written informed consent was obtained. The patient was brought to the CT suite and placed in the prone position on the CT table. Electric Cell Tender CT was performed of the abdomen and pelvis. After determining the appropriate site, the skin was infiltrated with lidocaine and a finder needle was placed. Intermittent CT was performed until the desired position was identified. The 18 gauge trocar needle was inserted into the left buttock into the fluid collection that extended into the abdomen and pelvis. J wire was then advanced through the needle and into the collection. The needle was exchanged for multiple dilators that were used to serially dilate over the wire. A 16 Fr APD drain was advanced over the wire and metal stiffener. The metal stiffener and wire were removed. CT scanning was performed. The pigtail was secured and aspirated until no more material could be aspirated. Sterile bandage was applied. The patient tolerated the procedure well. There were no immediate postprocedural complications. FINDINGS: 1. Initial CT demonstrates a large fluid collection in the abdomen and pelvic extending into the left buttocks and thigh region. There is a satisfactory window for CT drainage. 2. Intermittent CT demonstrates the 18 gauge needle was placed in the fluid collection. 3. Wire is coiled in the abdomen and pelvic fluid collection. 4. CT documents placement of a 16 Fr drain in the abdominal and pelvic fluid collection. 5. A total of 2350 mL of dark gelatinous material was aspirated through the drain and initial needle. IMPRESSION: Successful CT guided 16 Amharic drain placement in a large abdomen and pelvic mucocele.
== END 2019-04-02 11:19 | disposition home or self-care (01) ==
LOC: CATHLABREC 07:14 → EDSTATUS 08:30 → CATHLABREC 11:19
PROVIDERS: ATTEND Radiology Diagnostic Radiology
DX: R19.00 Intra-abdominal and pelvic swelling, mass and lump, unspecified site (principal); I10 Essential (primary) hypertension; K51.90 Ulcerative colitis, unspecified, without complications; Z79.01 Long term (current) use of anticoagulants; Z88.8 Allergy status to other drugs, medicaments and biological substances; Z79.899 Other long term (current) drug therapy; Z85.038 Personal history of other malignant neoplasm of large intestine; Z87.442 Personal history of urinary calculi; Z90.5 Acquired absence of kidney; Z98.890 Other specified postprocedural states
CPT/HCPCS: 36415; 49406; 80048; 85025; 85610; 85730; J2250; J3010; J7040; 10160; 77012; C1769

== ENCOUNTER 2019-05-07 06:48 | Day surgery (SDC) | payer MEDICARE ==
[2019-05-07] MEDS ORDERED: MIDAZOLAM 5 MG/5 ML INJ MDV IV NR (07:18)
[2019-05-07] MEDS ORDERED: fentaNYL 100 MCG/2 ML INJ IV ONE (07:18)
[2019-05-07 07:38] LABS: Basophils # (Auto) 0.1 K/mm3 (0.0-0.1); Basophils % (Auto) 1.4 % (0.0-1.8); Hematocrit 39.3 % (35.5-45.6); Hemoglobin 13.2 gm/dl (11.8-15.2); Lymphocytes % (Auto) 16.7 % (13.4-35.0); Mean Corpuscular HGB Conc 34 % (32-34); Mean Corpuscular Volume 87 fl (84-94); Monocytes # (Auto) 0.4 K/mm3 (0.0-0.8); Monocytes % (Auto) 7.1 % (0.0-7.3); Platelet Count 247 K/mm3 (140-440); Red Blood Count 4.51 M/mm3 (3.65-5.03); Red Cell Distribution Width 14.8 % (13.2-15.2)
[2019-05-07 07:47] LABS: INR 1.02 (0.87-1.13)
[2019-05-07 07:48] LABS: Partial Thromboplastin Time 38.7 Sec. (24.2-36.6)
[2019-05-07] MEDS ORDERED: SODIUM CHLORIDE 0.9% 500 ML 500 ML IV SCH (08:00)
--- NOTE | 2019-05-07 10:52 | Short Stay Summary ---
Short Stay Documentation Date of service: 05/07/19 Narrative H&P: 63-year-old male with history of ulcerative colitis status post proctocolectomy with end colostomy with residual mucocele and pseudomyxoma of the cyst who has been refractory to all surgical attempts to remove cyst and is palliated through CT-guided drainage of the mucocele. - History Principal diagnosis: Pseudomyxoma peritonei Past Medical History: cancer (history of colon cancer), liver disease (PSC) Past Surgical History: bowel surgery, Other (bladder surgery) Social history: - History Principal diagnosis: Pseudomyxoma peritonei - Allergies and Medications Current Medications: Allergies acetaminophen [From Percocet] Allergy (Verified 12/05/18 06:57) Itching oxycodone [From Percocet] Allergy (Verified 12/05/18 06:57) Itching Home Medications Medication Instructions Recorded Confirmed Last Taken Type Magnesium 1 tab PO DAILY 10/06/17 05/07/19 05/06/19 History 1 tab Multivitamin [Multiple Vitamins] 1 each PO DAILY 10/06/17 05/07/19 05/06/19 History 1 tab ursodioL [Jose] 500 mg PO BIDWM 10/06/17 05/07/19 05/06/19 History 500 mg Cholecalciferol Vit D3 [Vitamin D3 50,000 units PO QWEEK 02/05/19 05/07/19 05/06/19 History 1,000 UNIT TAB] 30158 Active Medications Sodium Chloride (Nacl 0.9% 500 Ml) 500 mls @ 50 mls/hr IV DIRECT NIA Last Admin: 05/07/19 08:08 Dose: 50 mls/hr Documented by: - Physical exam General appearance: mild distress (Mild pelvic discomfort) Lungs: Normal air movement Gastrointestinal: distended (Left buttocks and pelvis, expected) Extremities: normal temperature, normal color - Brief post op/procedure progress note Date of procedure: 05/07/19 Pre-op diagnosis: Mucocele Post-op diagnosis: same Procedure: CT-guided placement of a 16 Israeli drain in an abdominal and pelvic fluid collection Anesthesia: local (With conscious sedation) Findings: 2250 to 2500 mL's of mucus removed Surgeon: SALVADOR ZAMUDIO Estimated blood loss: minimal Condition: stable - Hospital course Hospital course: Patient tolerated procedure well and is ready for discharge. - Disposition Condition at discharge: Stable Disposition: DC-01 TO HOME OR SELFCARE - Discharge Diagnoses (1) Abdominal fluid collection Status: Acute (2) Primary sclerosing cholangitis Status: Acute (3) Ulcerative colitis Status: Acute Short Stay Discharge Plan Activity: advance as tolerated Weight Bearing Status: Weight Bear as Tolerated Diet: regular Wound: keep clean and dry (Remove Tegaderm after 24 to 48 hours, remove stitches after 7 days) Follow up with: PRIMARY CARE, [Primary Care Provider] - 7 Days
[2019-05-07 11:43] VITALS: BP 146/93
--- NOTE | 2019-05-15 10:49 | Cat Scan Report ---
EXAM: CT guided abdominal fluid collection 16 [place]oese drain placement CLINICAL INDICATION: Patient with ulcerative colitis, primary sclerosing cholangitis, status post proctocolectomy with recurrent mucocele which has been drained repeatedly in the past with severe mass effect symptoms who presented requesting drainage. Risks, benefits, and alternatives discussed. DATE: 04/02/2019 OIL BURNER MECHANIC: SALVADOR ZAMUDIO MD MEDICATIONS: Conscious sedation using Versed and fentanyl was performed under guidance of radiologic nursing. Continuous cardiopulmonary monitoring was utilized. PROCEDURE: Following an explanation of the risks, benefits and alternatives; reba informed consent was obtained. The patient was brought to the CT suite and placed in the prone position on the CT table. Office Support Specialist CT was performed of the abdomen and pelvis. After determining the appropriate site, the skin was infiltrated with lidocaine and a finder needle was placed. Intermittent CT was performed until the desired position was identified. The 18 gauge trocar needle was inserted into the left buttock into the fluid collection that extended into the abdomen and pelvis. J wire was then advanced through the needle and into the collection. The needle was exchanged for multiple dilators that were used to serially dilate over the wire. A 16 Fr APD drain was advanced over the wire and metal stiffener. The metal stiffener and wire were removed. CT scanning was performed. The pigtail was secured and aspirated until no more material could be aspirated. Sterile bandage was applied. The patient tolerated the procedure well. There were no immediate postprocedural complications. FINDINGS: 1. Initial CT demonstrates a large fluid collection in the abdomen and pelvic extending into the left buttocks and thigh region. There is a satisfactory window for CT drainage. 2. Intermittent CT demonstrates the 18 gauge needle was placed in the fluid collection. 3. Wire is coiled in the abdomen and pelvic fluid collection. 4. CT documents placement of a 16 Fr drain in the abdominal and pelvic fluid collection. 5. A total of 2250 mL of dark gelatinous material was aspirated through the drain and initial needle. IMPRESSION: Successful CT guided 16 [place]oese drain placement in a large abdomen and pelvic mucocele
== END 2019-05-07 12:05 | disposition home or self-care (01) ==
LOC: CATHLABREC 06:48 → EDSTATUS 08:30 → CATHLABREC 12:05
PROVIDERS: ATTEND Radiology Diagnostic Radiology
DX: R19.00 Intra-abdominal and pelvic swelling, mass and lump, unspecified site (principal); K51.90 Ulcerative colitis, unspecified, without complications; I10 Essential (primary) hypertension; Z85.038 Personal history of other malignant neoplasm of large intestine; Z87.442 Personal history of urinary calculi; Z88.8 Allergy status to other drugs, medicaments and biological substances; Z79.899 Other long term (current) drug therapy; Z90.5 Acquired absence of kidney; Z98.890 Other specified postprocedural states
CPT/HCPCS: 36415; 49406; 85025; 85610; 85730; C1769; J2250; J3010; J7040; 10160; 77012

== ENCOUNTER 2019-06-18 07:12 | Outpatient (CLI) | payer MEDICARE ==
[2019-06-18] MEDS ORDERED: fentaNYL 100 MCG/2 ML INJ IV ONE (07:46)
[2019-06-18] MEDS ORDERED: MIDAZOLAM 5 MG/5 ML INJ MDV IV ONE (07:46)
[2019-06-18 08:00] LABS: Basophils % (Auto) 0.2 % (0.0-1.8); Eosinophils % (Auto) 0.1 % (0.0-4.3); Hemoglobin 13.6 gm/dl (11.8-15.2); Lymphocytes # (Auto) 0.8 K/mm3 (1.2-5.4); Lymphocytes % (Auto) 11.7 % (13.4-35.0); Mean Corpuscular HGB Conc 34 % (32-34); Mean Corpuscular Volume 90 fl (84-94); Monocytes # (Auto) 0.4 K/mm3 (0.0-0.8); Monocytes % (Auto) 5.6 % (0.0-7.3); Platelet Count 330 K/mm3 (140-440); Red Blood Count 4.46 M/mm3 (3.65-5.03); Red Cell Distribution Width 16.6 % (13.2-15.2)
[2019-06-18] MEDS ORDERED: SODIUM CHLORIDE 0.9% 500 ML 500 ML IV SCH (08:00)
[2019-06-18 08:10] LABS: INR 0.95 (0.87-1.13)
[2019-06-18 08:11] LABS: Partial Thromboplastin Time 37.1 Sec. (24.2-36.6)
[2019-06-18 08:12] LABS: Calcium 9.6 mg/dL (8.4-10.2)
[2019-06-18 12:12] VITALS: BP 131/89
--- NOTE | 2019-06-18 15:42 | Short Stay Summary ---
Short Stay Documentation Date of service: 06/18/19 Narrative H&P: 63-year-old male with history of ulcerative colitis status post proctocolectomy with end colostomy with residual mucocele and pseudomyxoma of the cyst who has been refractory to all surgical attempts to remove cyst and is palliated through CT-guided drainage of the mucocele. - History Principal diagnosis: Pseudomyxoma peritonei Past Medical History: cancer (history of colon cancer), liver disease (PSC) Past Surgical History: bowel surgery, Other (bladder surgery) Social history: - History Principal diagnosis: Pseudomyxoma peritonei - Allergies and Medications Current Medications: Allergies acetaminophen [From Percocet] Allergy (Verified 12/05/18 06:57) Itching oxycodone [From Percocet] Allergy (Verified 12/05/18 06:57) Itching Home Medications Medication Instructions Recorded Confirmed Last Taken Type Magnesium 1 tab PO DAILY 10/06/17 06/18/19 06/17/19 History Multivitamin [Multiple Vitamins] 1 each PO DAILY 10/06/17 06/18/19 06/17/19 History ursodioL [Jose] 500 mg PO BIDWM 10/06/17 06/18/19 06/17/19 History Cholecalciferol Vit D3 [Vitamin D3 50,000 units PO QWEEK 02/05/19 06/18/19 06/17/19 History 1,000 UNIT TAB] cephALEXin [Keflex] 500 mg PO BID 7 Days #14 cap 05/07/19 06/18/19 06/17/19 Rx - Physical exam General appearance: mild distress (abdominal discomfort and left buttock discomfort) Lungs: Normal air movement Gastrointestinal: other (discomfort) Extremities: normal temperature, normal color - Brief post op/procedure progress note Date of procedure: 06/18/19 Pre-op diagnosis: Recurrent mucocele Post-op diagnosis: same Procedure: CT guided drainage of the pelvic mucocele with 16 Fr APD drain Anesthesia: local (w/ conscious sedation) Surgeon: SALVADOR ZAMUDIO Estimated blood loss: minimal Condition: stable - Hospital course Hospital course: Tolerated procedure well. No issues. - Disposition Condition at discharge: Good Disposition: DC-01 TO HOME OR SELFCARE - Discharge Diagnoses (1) Abdominal fluid collection Status: Acute (2) Primary sclerosing cholangitis Status: Acute (3) Ulcerative colitis Status: Acute Short Stay Discharge Plan Activity: advance as tolerated Weight Bearing Status: Weight Bear as Tolerated Diet: regular Wound: keep clean and dry (remove stitches in 7 days. take tegaderm off in 24-48 hrs) Follow up with: PRIMARY CARE, [Primary Care Provider] - 7 Days
--- NOTE | 2019-06-30 15:18 | Cat Scan Report ---
EXAM: CT guided abdominal fluid collection 16 [place] drain placement CLINICAL INDICATION: Patient with ulcerative colitis, primary sclerosing cholangitis, status post proctocolectomy with recurrent mucocele which has been drained repeatedly in the past with severe mass effect symptoms who presented requesting drainage. Risks, benefits, and alternatives discussed. DATE: 06/18/2019 CLOUD PHYSICIST: SALVADOR ZAMUDIO MD MEDICATIONS: Conscious sedation using Versed and fentanyl was performed under guidance of radiologic nursing. Continuous cardiopulmonary monitoring was utilized. PROCEDURE: Following an explanation of the risks, benefits and alternatives; written informed consent was obtained. The patient was brought to the CT suite and placed in the prone position on the CT table. Telesales Manager CT was performed of the abdomen and pelvis. After determining the appropriate site, the skin was infiltrated with lidocaine and a finder needle was placed. Intermittent CT was performed until the desired position was identified. The 18 gauge trocar needle was inserted into the left buttock into the fluid collection that extended into the abdomen and pelvis. J wire was then advanced through the needle and into the collection. The needle was exchanged for multiple dilators that were used to serially dilate over the wire. A 16 Fr APD drain was advanced over the wire and metal stiffener. The metal stiffener and wire were removed. CT scanning was performed. The pigtail was secured and aspirated until no more material could be aspirated. Sterile bandage was applied. The patient tolerated the procedure well. There were no immediate postprocedural complications. FINDINGS: 1. Initial CT demonstrates a large fluid collection in the abdomen and pelvic extending into the left buttocks and thigh region. There is a satisfactory window for CT drainage. 2. Intermittent CT demonstrates the 18 gauge needle was placed in the fluid collection. 3. Wire is coiled in the abdomen and pelvic fluid collection. 4. CT documents placement of a 16 Fr drain in the abdominal and pelvic fluid collection. 5. A total of 2500 to 2750 mL of dark gelatinous material was aspirated through the drain and initial needle. IMPRESSION: Successful CT guided 16 [place] drain placement in a large abdomen and pelvic mucocele
== END 2019-06-18 12:49 | disposition home or self-care (01) ==
LOC: CT 07:12 → CATHLABREC 07:12
PROVIDERS: ATTEND Radiology Diagnostic Radiology
DX: R19.00 Intra-abdominal and pelvic swelling, mass and lump, unspecified site (principal); K51.80 Other ulcerative colitis without complications; I10 Essential (primary) hypertension; K83.01 Primary sclerosing cholangitis; Z85.068 Personal history of other malignant neoplasm of small intestine; Z87.442 Personal history of urinary calculi; Z93.6 Other artificial openings of urinary tract status; Z88.8 Allergy status to other drugs, medicaments and biological substances; Z79.899 Other long term (current) drug therapy; Z98.890 Other specified postprocedural states
CPT/HCPCS: 36415; 49406; 80048; 85025; 85610; 85730; C1769; J2250; J3010; J7040; 10160; 77012

== ENCOUNTER 2019-10-29 07:01 | Outpatient (CLI) | payer MEDICARE ==
[2019-10-29 07:48] LABS: Basophils # (Auto) 0.1 K/mm3 (0.0-0.1); Eosinophils % (Auto) 0.1 % (0.0-4.3); Hematocrit 39.4 % (35.5-45.6); Hemoglobin 13.7 gm/dl (11.8-15.2); Lymphocytes # (Auto) 1.1 K/mm3 (1.2-5.4); Lymphocytes % (Auto) 15.4 % (13.4-35.0); Mean Corpuscular HGB Conc 35 % (32-34); Mean Corpuscular Volume 87 fl (84-94); Monocytes # (Auto) 0.5 K/mm3 (0.0-0.8); Monocytes % (Auto) 6.4 % (0.0-7.3); Platelet Count 256 K/mm3 (140-440); Red Blood Count 4.51 M/mm3 (3.65-5.03); Red Cell Distribution Width 15.9 % (13.2-15.2)
[2019-10-29 07:57] LABS: INR 1.08 (0.87-1.13)
[2019-10-29 07:58] LABS: Partial Thromboplastin Time 38.6 Sec. (24.2-36.6)
[2019-10-29] MEDS ORDERED: fentaNYL 100 MCG/2 ML INJ IV ONE (08:00)
[2019-10-29] MEDS ORDERED: MIDAZOLAM 5 MG/5 ML INJ MDV IV ONE (08:00)
[2019-10-29] MEDS ORDERED: SODIUM CHLORIDE 0.9% 500 ML 500 ML IV SCH (08:00)
[2019-10-29 11:47] VITALS: BP 147/88
--- NOTE | 2019-10-29 13:27 | Short Stay Summary ---
Short Stay Documentation Date of service: 10/29/19 Narrative H&P: 63-year-old male with history of ulcerative colitis status post proctocolectomy with end colostomy with residual mucocele and pseudomyxoma of the cyst who has been refractory to all surgical attempts to remove cyst and is palliated through CT-guided drainage of the mucocele. - History Principal diagnosis: Pseudomyxoma peritonei Past Medical History: cancer (history of colon cancer), liver disease (PSC) Past Surgical History: bowel surgery, Other (bladder surgery) Social history: - History Principal diagnosis: Pseudomyxoma peritonei - Allergies and Medications Current Medications: Allergies No Known Allergies Allergy (Verified 10/29/19 07:47) Home Medications Medication Instructions Recorded Confirmed Last Taken Type Magnesium 1 tab PO DAILY 10/06/17 10/29/19 10/28/19 History 1 tab Multivitamin [Multiple Vitamins] 1 each PO DAILY 10/06/17 10/29/19 10/28/19 History 1 tab ursodioL [Jose] 500 mg PO BIDWM 10/06/17 10/29/19 10/28/19 History 500 mg Cholecalciferol Vit D3 [Vitamin D3 500 units PO BID 02/05/19 10/29/19 10/28/19 History 1,000 UNIT TAB] 500 units oxyCODONE [roxiCODONE] 5 mg PO Q4HR PRN #40 tablet 07/23/19 10/29/19 10/26/19 Rx 5 mg [place]-3 Fatty Acids/Fish Oil [Fish 1 tab PO DAILY 09/24/19 10/29/19 10/28/19 History Oil] 1 tab - Physical exam General appearance: mild distress (pelvic and buttock discomfort) Lungs: Normal air movement Heart: Regular rate Extremities: normal temperature, normal color - Brief post op/procedure progress note Date of procedure: 10/29/19 Pre-op diagnosis: Mucocele Post-op diagnosis: same Procedure: 16 Fr APD drain placement in the left buttock mucocele Anesthesia: local (w/ conscious sedation) Surgeon: SALVADOR ZAMUDIO Estimated blood loss: minimal Condition: stable - Hospital course Hospital course: Tolerated procedure well. No immediate post procedural issues. - Disposition Condition at discharge: Good Disposition: DC-01 TO HOME OR SELFCARE - Discharge Diagnoses (1) Abdominal fluid collection Status: Acute (2) Primary sclerosing cholangitis Status: Acute (3) Ulcerative colitis Status: Acute Short Stay Discharge Plan Activity: advance as tolerated Weight Bearing Status: Weight Bear as Tolerated Diet: regular Wound: keep clean and dry (remove stitches in 5 to 7 days. Take keflex. Keep clean and dry until healed.) Follow up with: PRIMARY CARE, [Primary Care Provider] - 7 Days
--- NOTE | 2019-11-12 14:57 | Cat Scan Report ---
EXAM: CT guided abdominal fluid collection 16 [place] drain placement CLINICAL INDICATION: Patient with ulcerative colitis, primary sclerosing cholangitis, status post proctocolectomy with recurrent mucocele which has been drained repeatedly in the past with severe mass effect symptoms who presented requesting drainage. Risks, benefits, and alternatives discussed. DATE: 10/29/2019 ENGINE TURNER: SALVADOR ZAMUDIO MD MEDICATIONS: Conscious sedation using Versed and fentanyl was performed under guidance of radiologic nursing. Continuous cardiopulmonary monitoring was utilized. PROCEDURE: Following an explanation of the risks, benefits and alternatives; written informed consent was obtained. The patient was brought to the CT suite and placed in the prone position on the CT table. Driver Salesman CT was performed of the abdomen and pelvis. After determining the appropriate site, the skin was infiltrated with lidocaine and a finder needle was placed. Intermittent CT was performed until the desired position was identified. The 18 gauge trocar needle was inserted into the left buttock into the fluid collection that extended into the abdomen and pelvis. J wire was then advanced through the needle and into the collection. The needle was exchanged for multiple dilators that were used to serially dilate over the wire. A 16 Fr APD drain was advanced over the wire and metal stiffener. The metal stiffener and wire were removed. CT scanning was performed. The pigtail was secured and aspirated until no more material could be aspirated. 2-0 Silk sutures were used to close the dermatotomy. Sterile bandage was applied. The patient tolerated the procedure well. There were no immediate postprocedural complications. FINDINGS: 1. Initial CT demonstrates a large fluid collection in the abdomen and pelvic extending into the left buttocks and thigh region. There is a satisfactory window for CT drainage. 2. Intermittent CT demonstrates the 18 gauge needle was placed in the fluid collection. 3. Wire is coiled in the abdomen and pelvic fluid collection. 4. CT documents placement of a 16 Fr drain in the abdominal and pelvic fluid collection. 5. A total of approximately 3 L of dark gelatinous material was aspirated through the drain and initial needle. IMPRESSION: Successful CT guided 16 [place] Island[place] drain placement in a large abdomen and pelvic mucocele
== END 2019-10-29 12:51 | disposition home or self-care (01) ==
LOC: CATHLABREC 07:01
PROVIDERS: ATTEND Radiology Diagnostic Radiology
DX: R19.00 Intra-abdominal and pelvic swelling, mass and lump, unspecified site (principal); K51.90 Ulcerative colitis, unspecified, without complications; I10 Essential (primary) hypertension; Z85.038 Personal history of other malignant neoplasm of large intestine; Z87.442 Personal history of urinary calculi; Z94.0 Kidney transplant status; Z79.899 Other long term (current) drug therapy; Z80.0 Family history of malignant neoplasm of digestive organs; Z98.890 Other specified postprocedural states
CPT/HCPCS: 10160; 36415; 77012; 85025; 85610; 85730; J2250; J3010; J7040

== ENCOUNTER 2019-11-26 06:50 | Outpatient (CLI) | payer MEDICARE ==
[2019-11-26] MEDS ORDERED: MIDAZOLAM 5 MG/5 ML INJ MDV IV NR (07:23)
[2019-11-26] MEDS ORDERED: fentaNYL 100 MCG/2 ML INJ IV NR ×2 (07:23→10:15)
[2019-11-26 07:48] LABS: Basophils # (Auto) 0.1 K/mm3 (0.0-0.1); Basophils % (Auto) 0.9 % (0.0-1.8); Eosinophils % (Auto) 0.1 % (0.0-4.3); Hematocrit 35.7 % (35.5-45.6); Hemoglobin 12.1 gm/dl (11.8-15.2); Lymphocytes # (Auto) 0.8 K/mm3 (1.2-5.4); Lymphocytes % (Auto) 12.2 % (13.4-35.0); Mean Corpuscular HGB Conc 34 % (32-34); Mean Corpuscular Volume 88 fl (84-94); Monocytes # (Auto) 0.5 K/mm3 (0.0-0.8); Platelet Count 221 K/mm3 (140-440); Red Blood Count 4.06 M/mm3 (3.65-5.03); Red Cell Distribution Width 14.7 % (13.2-15.2)
[2019-11-26 07:56] LABS: INR 1.1 (0.87-1.13)
[2019-11-26 07:57] LABS: Partial Thromboplastin Time 36.3 Sec. (24.2-36.6)
[2019-11-26] MEDS ORDERED: SODIUM CHLORIDE 0.9% 500 ML 500 ML IV SCH (08:00)
[2019-11-26] MEDS ORDERED: fentaNYL 100 MCG/2 ML INJ ONE (10:13)
[2019-11-26 11:47] VITALS: BP 153/95
--- NOTE | 2019-11-26 14:12 | Short Stay Summary ---
Short Stay Documentation Date of service: 11/26/19 Narrative H&P: 63-year-old male with history of ulcerative colitis status post proctocolectomy with end colostomy with residual mucocele and pseudomyxoma of the cyst who has been refractory to all surgical attempts to remove cyst and is palliated through CT-guided drainage of the mucocele. - History Principal diagnosis: Pseudomyxoma peritonei Past Medical History: cancer (history of colon cancer), liver disease (PSC) Past Surgical History: bowel surgery, Other (bladder surgery) Social history: - History Principal diagnosis: Pseudomyxoma peritonei - Allergies and Medications Current Medications: Allergies No Known Allergies Allergy (Verified 10/29/19 07:47) Home Medications Medication Instructions Recorded Confirmed Last Taken Type Magnesium 1 tab PO DAILY 10/06/17 11/26/19 11/25/19 History 1 tab Multivitamin [Multiple Vitamins] 1 each PO DAILY 10/06/17 11/26/19 11/25/19 History 1 tab ursodioL [Jose] 500 mg PO BIDWM 10/06/17 11/26/19 11/25/19 History 500 mg Cholecalciferol Vit D3 [Vitamin D3 500 units PO BID 02/05/19 11/26/19 11/25/19 History 1,000 UNIT TAB] 500 units oxyCODONE [roxiCODONE] 5 mg PO Q4HR PRN #40 tablet 07/23/19 11/26/19 11/23/19 Rx 5 mg [place]-3 Fatty Acids/Fish Oil [Fish 1 tab PO DAILY 09/24/19 11/26/19 11/25/19 History Oil] 1 tab - Physical exam General appearance: no acute distress HEENT: EOMI Lungs: Normal air movement Heart: Regular rate Gastrointestinal: tenderness (pelvic pressure and buttock pressure) Neurological: Normal gait - Brief post op/procedure progress note Date of procedure: 11/26/19 Pre-op diagnosis: Mucocele Post-op diagnosis: same Procedure: 16 Fr APD drain placement in the left buttock mucocele Anesthesia: local (w/ conscious sedation) Surgeon: SALVADOR ZAMUDIO Estimated blood loss: minimal Condition: stable - Hospital course Hospital course: Tolerated procedure well. Ready for discharge. - Disposition Condition at discharge: Good Disposition: DC-01 TO HOME OR SELFCARE - Discharge Diagnoses (1) Abdominal fluid collection Status: Acute (2) Primary sclerosing cholangitis Status: Chronic (3) Ulcerative colitis Status: Acute Short Stay Discharge Plan Activity: advance as tolerated Weight Bearing Status: Weight Bear as Tolerated Diet: regular Wound: keep clean and dry, other (remove stiches in 5 to 7 days) Additional Instructions: Keep suture site dry no baths, swimming or shower until after sutures removed. to remove sutures in [address] Zamudio for any problems S/S of infection IE redness swelling temp greater than 100. Follow up with: PRIMARY CAREMD [Primary Care Provider] - 7 Days
--- NOTE | 2019-11-26 16:15 | Cat Scan Report ---
EXAM: CT guided abdominal fluid collection 16 [place] drain placement CLINICAL INDICATION: Patient with ulcerative colitis, primary sclerosing cholangitis, status post proctocolectomy with recurrent mucocele which has been drained repeatedly in the past with severe mass effect symptoms who presented requesting drainage. Risks, benefits, and alternatives discussed. DATE: 11/26/2019 NATIONAL RECRUITER: SALVADOR ZAMUDIO MD MEDICATIONS: Conscious sedation using Versed and fentanyl was performed under guidance of radiologic nursing. Continuous cardiopulmonary monitoring was utilized. PROCEDURE: Following an explanation of the risks, benefits and alternatives; written informed consent was obtained. The patient was brought to the CT suite and placed in the prone position on the CT table. Workers Compensation Claims Adjuster CT was performed of the abdomen and pelvis. After determining the appropriate site, the skin was infiltrated with lidocaine and a finder needle was placed. Intermittent CT was performed until the desired position was identified. The 18 gauge trocar needle was inserted into the left buttock into the fluid collection that extended into the abdomen and pelvis. J wire was then advanced through the needle and into the collection. The needle was exchanged for multiple dilators that were used to serially dilate over the wire. A 16 Fr APD drain was advanced over the wire and metal stiffener. The metal stiffener and wire were removed. CT scanning was performed. The pigtail was secured and aspirated until no more material could be aspirated. 2-0 Silk sutures were used to close the dermatotomy. Sterile bandage was applied. The patient tolerated the procedure well. There were no immediate postprocedural complications. FINDINGS: 1. Initial CT demonstrates a large fluid collection in the abdomen and pelvic extending into the left buttocks and thigh region. There is a satisfactory window for CT drainage. 2. Intermittent CT demonstrates the 18 gauge needle was placed in the fluid collection. 3. Wire is coiled in the abdomen and pelvic fluid collection. 4. CT documents placement of a 16 Fr drain in the abdominal and pelvic fluid collection. 5. A total of approximately 2.6 L of dark gelatinous material was aspirated through the drain and initial needle. IMPRESSION: Successful CT guided 16 [place] drain placement in a large abdomen and pelvic mucocele
== END 2019-11-26 12:00 | disposition home or self-care (01) ==
LOC: CT 06:50 → CATHLABREC 06:50
PROVIDERS: ATTEND Radiology Diagnostic Radiology
DX: R19.00 Intra-abdominal and pelvic swelling, mass and lump, unspecified site (principal); K51.90 Ulcerative colitis, unspecified, without complications; I10 Essential (primary) hypertension; Z90.5 Acquired absence of kidney; Z79.899 Other long term (current) drug therapy; Z85.038 Personal history of other malignant neoplasm of large intestine; Z87.442 Personal history of urinary calculi; Z98.890 Other specified postprocedural states; Z80.0 Family history of malignant neoplasm of digestive organs
CPT/HCPCS: 10160; 36415; 77012; 85025; 85610; 85730; J0690; J2250; J3010; J7040

== ENCOUNTER 2019-12-17 07:09 | Outpatient (CLI) | payer MEDICARE ==
[2019-12-17 08:26] LABS: Hematocrit 34.1 % (35.5-45.6); Hemoglobin 11.8 gm/dl (11.8-15.2); Mean Corpuscular HGB Conc 35 % (32-34); Mean Corpuscular Volume 87 fl (84-94); Platelet Count 215 K/mm3 (140-440); Red Blood Count 3.93 M/mm3 (3.65-5.03); Red Cell Distribution Width 14.6 % (13.2-15.2)
[2019-12-17] MEDS ORDERED: fentaNYL 100 MCG/2 ML INJ IV SCH (08:30)
[2019-12-17] MEDS ORDERED: MIDAZOLAM 5 MG/5 ML INJ MDV IV SCH (08:30)
[2019-12-17 08:36] LABS: INR 1.02 (0.87-1.13)
[2019-12-17 08:37] LABS: Partial Thromboplastin Time 40.3 Sec. (24.2-36.6)
[2019-12-17] MEDS ORDERED: SODIUM CHLORIDE 0.9% 500 ML 0 ML ONE (08:43)
[2019-12-17] MEDS ORDERED: CLINDAMYCIN 600 MG/50 mL 600 MG/50 ML BAG IV NR (10:00)
--- NOTE | 2019-12-17 11:10 | Short Stay Summary ---
Short Stay Documentation Date of service: 12/17/19 Narrative H&P: 63-year-old male with history of ulcerative colitis status post proctocolectomy with end colostomy with residual mucocele and pseudomyxoma of the cyst who has been refractory to all surgical attempts to remove cyst and is palliated through CT-guided drainage of the mucocele. - History Principal diagnosis: Pseudomyxoma peritonei Past Medical History: cancer (history of colon cancer), liver disease (PSC) Past Surgical History: bowel surgery, Other (bladder surgery) Social history: - History Principal diagnosis: Pseudomyxoma peritonei - Allergies and Medications Current Medications: Allergies No Known Allergies Allergy (Verified 10/29/19 07:47) Home Medications Medication Instructions Recorded Confirmed Last Taken Type Magnesium 1 tab PO DAILY 10/06/17 11/26/19 11/25/19 History 1 tab Multivitamin [Multiple Vitamins] 1 each PO DAILY 10/06/17 11/26/19 11/25/19 History 1 tab ursodioL [Jose] 500 mg PO BIDWM 10/06/17 11/26/19 11/25/19 History 500 mg Cholecalciferol Vit D3 [Vitamin D3 500 units PO BID 02/05/19 11/26/19 11/25/19 History 1,000 UNIT TAB] 500 units oxyCODONE [roxiCODONE] 5 mg PO Q4HR PRN #40 tablet 07/23/19 11/26/19 11/23/19 Rx 5 mg [place]-3 Fatty Acids/Fish Oil [Fish 1 tab PO DAILY 09/24/19 11/26/19 11/25/19 History Oil] 1 tab Active Medications Fentanyl (Sublimaze) 100 mcg IV ONCE NIA Stop: 12/17/19 16:00 Last Admin: 12/17/19 09:35 Dose: 100 mcg Documented by: Clindamycin HCl (Cleocin 600 Mg/50 Ml) 600 mg in 50 mls @ 100 mls/hr IV PREOP NR; Protocol Stop: 12/17/19 23:59 Last Admin: 12/17/19 10:45 Dose: 100 mls/hr Documented by: Midazolam HCl (Versed) 5 mg IV ONCE NIA Stop: 12/17/19 16:00 Last Admin: 12/17/19 09:35 Dose: 2 mg Documented by: - Physical exam General appearance: mild distress (pelvic and left buttock distention with some discomfort) HEENT: EOMI Lungs: Normal air movement Heart: Regular rate Gastrointestinal: other (pelvic and left buttock distention with discomfort) Extremities: normal temperature, normal color - Brief post op/procedure progress note Date of procedure: 12/17/19 Pre-op diagnosis: Mucocele, recurrent, pseudomyxoma peritonei Post-op diagnosis: same Procedure: CT guided drain placement in a left pelvic mucocele with a 16 Fr APD drain through a left transgluteal approach Anesthesia: local (w/ conscious sedation) Surgeon: SALVADOR ZAMUDIO Estimated blood loss: minimal Specimen disposition: discarded Condition: stable - Hospital course Hospital course: Tolerated procedure well. No immediate post procedural complications. - Disposition Condition at discharge: Stable Disposition: DC-01 TO HOME OR SELFCARE - Discharge Diagnoses (1) Abdominal fluid collection Status: Acute (2) Ulcerative colitis Status: Acute (3) Primary sclerosing cholangitis Status: Chronic Short Stay Discharge Plan Activity: advance as tolerated Weight Bearing Status: Weight Bear as Tolerated Diet: regular Wound: keep clean and dry (remove stitches in 5-7 days) Follow up with: PRIMARY CAREMD [Primary Care Provider] - 7 Days
[2019-12-17 13:17] VITALS: BP 164/70
--- NOTE | 2020-01-01 16:20 | Operative Report ---
Operative Report Operative Report: EXAM: CT guided abdominal fluid collection 16 [place] drain placement CLINICAL INDICATION: Patient with ulcerative colitis, primary sclerosing cholangitis, status post proctocolectomy with recurrent mucocele which has been drained repeatedly in the past with severe mass effect symptoms who presented requesting drainage. Risks, benefits, and alternatives discussed. DATE: 12/17/2019 MANAGER BAKERY: SALVADOR ZAMUDIO MD MEDICATIONS: Conscious sedation using Versed and fentanyl was performed under guidance of radiologic nursing. Continuous cardiopulmonary monitoring was utilized. PROCEDURE: Following an explanation of the risks, benefits and alternatives; written informed consent was obtained. The patient was brought to the CT suite and placed in the prone position on the CT table. Rubber Mill Tender CT was performed of the abdomen and pelvis. After determining the appropriate site, the skin was infiltrated with lidocaine and a finder needle was placed. Intermittent CT was performed until the desired position was identified. The 18 gauge trocar needle was inserted into the left buttock into the fluid collection that extended into the abdomen and pelvis. J wire was then advanced through the needle and into the collection. The needle was exchanged for multiple dilators that were used to serially dilate over the wire. A 16 Fr APD drain was advanced over the wire and metal stiffener. The metal stiffener and wire were removed. CT scanning was performed. The pigtail was secured and aspirated until no more material could be aspirated. 2-0 Silk sutures were used to close the dermatotomy. Sterile bandage was applied. The patient tolerated the procedure well. There were no immediate postprocedural complications. FINDINGS: 1. Initial CT demonstrates a large fluid collection in the abdomen and pelvic extending into the left buttocks and thigh region. There is a satisfactory window for CT drainage. 2. Intermittent CT demonstrates the 18 gauge needle was placed in the fluid collection. 3. Wire is coiled in the abdomen and pelvic fluid collection. 4. CT documents placement of a 16 Fr drain in the abdominal and pelvic fluid collection. 5. A total of approximately 2.25 L of dark gelatinous material was aspirated through the drain and initial needle. IMPRESSION: Successful CT guided 16 [place] drain placement in a large abdomen and pelvic mucocele THIS WAS DICTATED 12/17/2019 IN THE PACS SYSTEM, BUT DUE TO SYSTEM ISSUES, COULD NOT BE SAVED.
== END 2019-12-17 07:10 | disposition home or self-care (01) ==
LOC: CATHLABREC 07:09
PROVIDERS: ATTEND Radiology Diagnostic Radiology
DX: R19.00 Intra-abdominal and pelvic swelling, mass and lump, unspecified site (principal); K51.90 Ulcerative colitis, unspecified, without complications; I10 Essential (primary) hypertension; Z79.899 Other long term (current) drug therapy; Z85.038 Personal history of other malignant neoplasm of large intestine; Z87.442 Personal history of urinary calculi; Z90.5 Acquired absence of kidney; Z98.890 Other specified postprocedural states; Z80.0 Family history of malignant neoplasm of digestive organs; Z93.3 Colostomy status
CPT/HCPCS: 10160; 36415; 77012; 85027; 85610; 85730; J2250; J3010; J7040

== ENCOUNTER 2020-01-14 06:52 | Outpatient (CLI) | payer MEDICARE ==
[2020-01-14] MEDS ORDERED: fentaNYL 100 MCG/2 ML INJ IV ONE ×2 (07:19→11:00)
[2020-01-14] MEDS ORDERED: MIDAZOLAM 5 MG/5 ML INJ MDV IV ONE (07:19)
[2020-01-14 07:46] LABS: Basophils % (Auto) 0.5 % (0.0-1.8); Eosinophils % (Auto) 0.4 % (0.0-4.3); Hematocrit 38.5 % (35.5-45.6); Mean Corpuscular HGB Conc 34 % (32-34); Mean Corpuscular Volume 88 fl (84-94); Monocytes # (Auto) 0.5 K/mm3 (0.0-0.8); Monocytes % (Auto) 7.3 % (0.0-7.3); Platelet Count 228 K/mm3 (140-440); Red Blood Count 4.38 M/mm3 (3.65-5.03); Red Cell Distribution Width 14.3 % (13.2-15.2)
[2020-01-14 07:53] LABS: INR 1.01 (0.87-1.13)
[2020-01-14 07:54] LABS: Partial Thromboplastin Time 40.2 Sec. (24.2-36.6)
[2020-01-14] MEDS ORDERED: CLINDAMYCIN 600 MG/50 mL 600 MG/50 ML BAG IV NR (08:00)
[2020-01-14] MEDS ORDERED: fentaNYL 100 MCG/2 ML INJ ONE (09:47)
[2020-01-14 11:04] VITALS: BP 161/100
--- NOTE | 2020-01-14 14:36 | Short Stay Summary ---
Short Stay Documentation Date of service: 01/14/20 Narrative H&P: 3-year-old male with history of ulcerative colitis status post proctocolectomy with end colostomy with residual mucocele and pseudomyxoma of the cyst who has been refractory to all surgical attempts to remove cyst and is palliated through CT-guided drainage of the mucocele. - History Principal diagnosis: Pseudomyxoma peritonei Past Medical History: cancer (history of colon cancer), liver disease (PSC) Past Surgical History: bowel surgery, Other (bladder surgery) Social history: - Allergies and Medications Current Medications: Allergies No Known Allergies Allergy (Verified 10/29/19 07:47) Home Medications Medication Instructions Recorded Confirmed Last Taken Type Magnesium 1 tab PO DAILY 10/06/17 01/14/20 01/13/20 History 1 tab Multivitamin [Multiple Vitamins] 1 each PO DAILY 10/06/17 01/14/20 01/13/20 History 1 tab ursodioL [Jose] 500 mg PO BIDWM 10/06/17 01/14/20 01/13/20 History 500 mg Cholecalciferol Vit D3 [Vitamin D3 500 units PO BID 02/05/19 01/14/20 01/13/20 History 1,000 UNIT TAB] 500 units oxyCODONE [roxiCODONE] 5 mg PO Q4HR PRN #40 tablet 07/23/19 01/14/20 01/12/20 Rx 5 mg [place]-3 Fatty Acids/Fish Oil [Fish 1 tab PO DAILY 09/24/19 01/14/20 01/13/20 History Oil] 1 tab - Physical exam General appearance: no acute distress Lungs: Normal air movement Gastrointestinal: other (distented left buttock region with discomfort) Extremities: normal temperature, normal color - Brief post op/procedure progress note Date of procedure: 01/14/20 Pre-op diagnosis: Mucocele Post-op diagnosis: same Procedure: 16 Fr APD drain placement in a left pelvic fluid collection Anesthesia: local (w/ conscious sedation) Surgeon: SALVADOR ZAMUDIO Estimated blood loss: minimal Specimen disposition: other (2.9 L removed) Condition: stable - Hospital course Hospital course: Ready for discharge. Tolerated procedure well. - Disposition Condition at discharge: Stable Disposition: DC-01 TO HOME OR SELFCARE - Discharge Diagnoses (1) Abdominal fluid collection Status: Acute (2) Ulcerative colitis Status: Acute (3) Primary sclerosing cholangitis Status: Chronic Short Stay Discharge Plan Activity: advance as tolerated Weight Bearing Status: Weight Bear as Tolerated Diet: regular Wound: keep clean and dry Additional Instructions: to remove sutures in 5 days. Keep site clean and dry sponge off until sutures removed . Report any S/S of infection redness swelling bleeding or temp greater than 100. Call DR Zamudio for any problems Follow up with: PRIMARY CARE, [Primary Care Provider] - 7 Days
--- NOTE | 2020-01-14 14:39 | Operative Report ---
Operative Report Operative Report: EXAM: CT guided abdominal fluid collection 16 Prydeinig drain placement CLINICAL INDICATION: Patient with ulcerative colitis, primary sclerosing cholangitis, status post proctocolectomy with recurrent mucocele which has been drained repeatedly in the past with severe mass effect symptoms who presented requesting drainage. Risks, benefits, and alternatives discussed. DATE: 01/14/2020 JAVA GRAILS DEVELOPER: SALVADOR ZAMUDIO MD MEDICATIONS: Conscious sedation using Versed and fentanyl was performed under guidance of radiologic nursing. Continuous cardiopulmonary monitoring was utilized. PROCEDURE: Following an explanation of the risks, benefits and alternatives; written informed consent was obtained. The patient was brought to the CT suite and placed in the prone position on the CT table. Health Care Manager CT was performed of the abdomen and pelvis. After determining the appropriate site, the skin was infiltrated with lidocaine and a finder needle was placed. Intermittent CT was performed until the desired position was identified. The 18 gauge trocar needle was inserted into the left buttock into the fluid collection that extended into the abdomen and pelvis. J wire was then advanced through the needle and into the collection. The needle was exchanged for multiple dilators that were used to serially dilate over the wire. A 16 Fr APD drain was advanced over the wire and metal stiffener. The metal stiffener and wire were removed. CT scanning was performed. The pigtail was secured and aspirated until no more material could be aspirated. 2-0 Silk sutures were used to close the dermatotomy. Sterile bandage was applied. The patient tolerated the procedure well. There were no immediate postprocedural complications. FINDINGS: 1. Initial CT demonstrates a large fluid collection in the abdomen and pelvic extending into the left buttocks and thigh region. There is a satisfactory window for CT drainage. 2. Intermittent CT demonstrates the 18 gauge needle was placed in the fluid collection. 3. Wire is coiled in the abdomen and pelvic fluid collection. 4. CT documents placement of a 16 Fr drain in the abdominal and pelvic fluid collection. 5. A total of approximately 2.9 L of dark gelatinous material was aspirated through the drain and initial needle. IMPRESSION: Successful CT guided 16 Prydeinig drain placement in a large abdomen and pelvic mucocele
== END 2020-01-14 11:20 | disposition home or self-care (01) ==
LOC: CATHLABREC 06:52
PROVIDERS: ATTEND Radiology Diagnostic Radiology
DX: R19.00 Intra-abdominal and pelvic swelling, mass and lump, unspecified site (principal); I10 Essential (primary) hypertension; K51.90 Ulcerative colitis, unspecified, without complications; Z85.038 Personal history of other malignant neoplasm of large intestine; Z79.899 Other long term (current) drug therapy; Z87.442 Personal history of urinary calculi; Z90.5 Acquired absence of kidney; Z80.0 Family history of malignant neoplasm of digestive organs
CPT/HCPCS: 10160; 36415; 77012; 85025; 85610; 85730; 96365; C1769; J2250; J3010

== ENCOUNTER 2020-02-04 07:22 | Outpatient (CLI) | payer MEDICARE ==
[2020-02-04] MEDS ORDERED: fentaNYL 100 MCG/2 ML INJ IV NR (08:10)
[2020-02-04] MEDS ORDERED: MIDAZOLAM 5 MG/5 ML INJ MDV IV NR (08:10)
[2020-02-04 08:50] LABS: Hematocrit 38.5 % (35.5-45.6); Hemoglobin 12.9 gm/dl (11.8-15.2); Mean Corpuscular HGB Conc 34 % (32-34); Mean Corpuscular Volume 88 fl (84-94); Platelet Count 232 K/mm3 (140-440); Red Blood Count 4.38 M/mm3 (3.65-5.03); Red Cell Distribution Width 15.2 % (13.2-15.2)
[2020-02-04] MEDS ORDERED: SODIUM CHLORIDE 0.9% 500 ML 500 ML IV SCH (09:00)
[2020-02-04 09:58] LABS: INR 1.03 (0.87-1.13)
[2020-02-04 09:59] LABS: Partial Thromboplastin Time 37.7 Sec. (24.2-36.6)
--- NOTE | 2020-02-04 13:11 | Short Stay Summary ---
Short Stay Documentation Date of service: 02/04/20 Narrative H&P: 64-year-old male with history of ulcerative colitis status post proctocolectomy with end colostomy with residual mucocele and pseudomyxoma of the cyst who has been refractory to all surgical attempts to remove cyst and is palliated through CT-guided drainage of the mucocele. - History Principal diagnosis: Pseudomyxoma peritonei Past Medical History: cancer (history of colon cancer), liver disease (PSC) Past Surgical History: bowel surgery, Other (bladder surgery) Social history: - Allergies and Medications Current Medications: Allergies No Known Allergies Allergy (Verified 10/29/19 07:47) Home Medications Medication Instructions Recorded Confirmed Last Taken Type Magnesium 1 tab PO DAILY 10/06/17 01/14/20 01/13/20 History 1 tab Multivitamin [Multiple Vitamins] 1 each PO DAILY 10/06/17 01/14/20 01/13/20 History 1 tab ursodioL [Jose] 500 mg PO BIDWM 10/06/17 01/14/20 01/13/20 History 500 mg Cholecalciferol Vit D3 [Vitamin D3 500 units PO BID 02/05/19 01/14/20 01/13/20 History 1,000 UNIT TAB] 500 units oxyCODONE [roxiCODONE] 5 mg PO Q4HR PRN #40 tablet 07/23/19 01/14/20 01/12/20 Rx 5 mg [place]-3 Fatty Acids/Fish Oil [Fish 1 tab PO DAILY 09/24/19 01/14/20 01/13/20 History Oil] 1 tab Active Medications Fentanyl (Fentanyl 100 Mcg/2 Ml Inj) 100 mcg IV ONCE NR Stop: 02/04/20 23:00 Last Admin: 02/04/20 10:03 Dose: 100 mcg Documented by: Sodium Chloride (Nacl 0.9% 500 Ml) 500 mls @ 50 mls/hr IV DIRECT NIA Midazolam HCl (Midazolam 5 Mg/5 Ml Inj Mdv) 5 mg IV ONCE NR Stop: 02/04/20 23:00 Last Admin: 02/04/20 10:03 Dose: 3 mg Documented by: - Physical exam General appearance: mild distress (left buttock discomfort) Lungs: Normal air movement Gastrointestinal: other (pelvic pressure and abdominal pressure) Extremities: normal temperature, normal color - Brief post op/procedure progress note Date of procedure: 02/04/20 Pre-op diagnosis: Pseudomyxoma peritonei, mucocele Post-op diagnosis: same Procedure: CT guided drainage of the left pelvic mucocele Anesthesia: local (w/ conscious sedation) Surgeon: SALVADOR ZAMUDIO Estimated blood loss: minimal Condition: stable - Hospital course Hospital course: Tolerated procedure well. No immediate post procedural complications. - Disposition Condition at discharge: Stable Disposition: DC-01 TO HOME OR SELFCARE - Discharge Diagnoses (1) Abdominal fluid collection Status: Acute (2) Ulcerative colitis Status: Acute (3) Primary sclerosing cholangitis Status: Chronic Short Stay Discharge Plan Activity: advance as tolerated Weight Bearing Status: Weight Bear as Tolerated Wound: keep clean and dry (remove stitches in 5-7 days) Additional Instructions: follow up with Primary Medical Doctor in 1 week, return to Emergency Room (ER) for medical emergency. Follow up with: PRIMARY MD BO [Primary Care Provider] - 7 Days
--- NOTE | 2020-02-04 13:12 | Operative Report ---
Operative Report Operative Report: EXAM: CT guided abdominal fluid collection 16 Occitan drain placement CLINICAL INDICATION: Patient with ulcerative colitis, primary sclerosing cholangitis, status post proctocolectomy with recurrent mucocele which has been drained repeatedly in the past with severe mass effect symptoms who presented requesting drainage. Risks, benefits, and alternatives discussed. DATE: 02/04/2020 STOCK HOLDER: SALVADOR ZAMUDIO MD MEDICATIONS: Conscious sedation using Versed and fentanyl was performed under guidance of radiologic nursing. Continuous cardiopulmonary monitoring was utilized. PROCEDURE: Following an explanation of the risks, benefits and alternatives; written informed consent was obtained. The patient was brought to the CT suite and placed in the prone position on the CT table. Silver Steward CT was performed of the abdomen and pelvis. After determining the appropriate site, the skin was infiltr ated with lidocaine and a finder needle was placed. Intermittent CT was performed until the desired position was identified. The 18 gauge trocar needle was inserted into the left buttock into the fluid collection that extended into the abdomen and pelvis. J wire was then advanced through the needle and into the collection. The needle was exchanged for multiple dilators that were used to serially dilate over the wire. A 16 Fr APD drain was advanced over the wire and metal stiffener. The metal stiffener and wire were removed. CT scanning was performed. The pigtail was secured and aspirated until no more material could be aspirated. 2-0 Silk sutures were used to close the dermatotomy. Sterile bandage was applied. The patient tolerated the procedure well. There were no immediate postprocedural complications. FINDINGS: 1. Initial CT demonstrates a large fluid collection in the abdomen and pelvic extending into the left buttocks and thigh region. There is a satisfactory window for CT drainage. 2. Intermittent CT demonstrates the 18 gauge needle was placed in the fluid collection. 3. Wire is coiled in the abdomen and pelvic fluid collection. 4. CT documents placement of a 16 Fr drain in the abdominal and pelvic fluid collection. 5. A total of approximately 2.8 L of dark gelatinous material was aspirated through the drain and initial needle. IMPRESSION: Successful CT guided 16 Occitan drain placement in a large abdomen and pelvic mucocele
[2020-02-04 19:25] VITALS: BP 159/92
== END 2020-02-04 07:23 | disposition home or self-care (01) ==
LOC: CT 07:22 → CATHLABREC 07:22
PROVIDERS: ATTEND Radiology Diagnostic Radiology
DX: R19.00 Intra-abdominal and pelvic swelling, mass and lump, unspecified site (principal); K51.90 Ulcerative colitis, unspecified, without complications; I10 Essential (primary) hypertension; Z90.5 Acquired absence of kidney; Z98.890 Other specified postprocedural states; Z93.3 Colostomy status; Z79.899 Other long term (current) drug therapy; Z85.038 Personal history of other malignant neoplasm of large intestine; Z87.442 Personal history of urinary calculi; Z80.0 Family history of malignant neoplasm of digestive organs
CPT/HCPCS: 10160; 36415; 77012; 85027; 85610; 85730; C1769; J2250; J3010; J7040

== ENCOUNTER 2020-02-25 06:47 | Outpatient (CLI) | payer MEDICARE ==
[2020-02-25] MEDS ORDERED: fentaNYL 100 MCG/2 ML INJ IV NR (07:39)
[2020-02-25] MEDS ORDERED: MIDAZOLAM 5 MG/5 ML INJ MDV IV NR (07:39)
[2020-02-25 08:11] LABS: Hematocrit 39.9 % (35.5-45.6); Hemoglobin 13.2 gm/dl (11.8-15.2); Mean Corpuscular HGB Conc 33 % (32-34); Mean Corpuscular Volume 88 fl (84-94); Platelet Count 233 K/mm3 (140-440); Red Blood Count 4.57 M/mm3 (3.65-5.03); Red Cell Distribution Width 15.4 % (13.2-15.2)
[2020-02-25 08:21] LABS: INR 0.97 (0.87-1.13)
[2020-02-25 08:22] LABS: Partial Thromboplastin Time 39.9 Sec. (24.2-36.6)
[2020-02-25] MEDS ORDERED: SODIUM CHLORIDE 0.9% 500 ML 500 ML ONE (08:28)
[2020-02-25] MEDS ORDERED: SODIUM CHLORIDE 0.9% 500 ML 500 ML IV SCH (09:00)
[2020-02-25 13:53] VITALS: BP 154/95
--- NOTE | 2020-02-25 14:56 | Operative Report ---
Operative Report Operative Report: EXAM: CT guided abdominal fluid collection 16 Finnish drain placement CLINICAL INDICATION: Patient with ulcerative colitis, primary sclerosing cholangitis, status post proctocolectomy with recurrent mucocele which has been drained repeatedly in the past with severe mass effect symptoms who presented requesting drainage. Risks, benefits, and alternatives discussed. DATE: 02/24/2019 BRICK WHEELER: SALVADOR ZAMUDIO MD MEDICATIONS: Conscious sedation using Versed and fentanyl was performed under guidance of radiologic nursing. Continuous cardiopulmonary monitoring was utilized. PROCEDURE: Following an explanation of the risks, benefits and alternatives; written informed consent was obtained. The patient was brought to the CT suite and placed in the prone position on the CT table. Formula Weigher CT was performed of the abdomen and pelvis. After determining the appropriate site, the skin was infiltr ated with lidocaine and a finder needle was placed. Intermittent CT was performed until the desired position was identified. The 18 gauge trocar needle was inserted into the left buttock into the fluid collection that extended into the abdomen and pelvis. J wire was then advanced through the needle and into the collection. The needle was exchanged for multiple dilators that were used to serially dilate over the wire. A 16 Fr APD drain was advanced over the wire and metal stiffener. The metal stiffener and wire were removed. CT scanning was performed. The pigtail was secured and aspirated until no more material could be aspirated. 2-0 Silk sutures were used to close the dermatotomy. Sterile bandage was applied. The patient tolerated the procedure well. There were no immediate postprocedural complications. FINDINGS: 1. Initial CT demonstrates a large fluid collection in the abdomen and pelvic extending into the left buttocks and thigh region. There is a satisfactory window for CT drainage. 2. Intermittent CT demonstrates the 18 gauge needle was placed in the fluid collection. 3. Wire is coiled in the abdomen and pelvic fluid collection. 4. CT documents placement of a 16 Fr drain in the abdominal and pelvic fluid collection. 5. A total of approximately 2.7 L of dark gelatinous material was aspirated through the drain and initial needle. IMPRESSION: Successful CT guided 16 Finnish drain placement in a large abdomen and pelvic mucocele
--- NOTE | 2020-02-25 14:56 | Short Stay Summary ---
Short Stay Documentation Date of service: 02/25/20 Narrative H&P: 64-year-old male with history of ulcerative colitis status post proctocolectomy with end colostomy with residual mucocele and pseudomyxoma of the cyst who has been refractory to all surgical attempts to remove cyst and is palliated through CT-guided drainage of the mucocele. - History Principal diagnosis: Pseudomyxoma peritonei Past Medical History: cancer (history of colon cancer), liver disease (PSC) Past Surgical History: bowel surgery, Other (bladder surgery) Social history: - Allergies and Medications Current Medications: Allergies No Known Allergies Allergy (Verified 10/29/19 07:47) Home Medications Medication Instructions Recorded Confirmed Last Taken Type Magnesium 1 tab PO DAILY 10/06/17 02/25/20 02/24/20 History 1 tab Multivitamin [Multiple Vitamins] 1 each PO DAILY 10/06/17 02/25/20 02/24/20 History 1 tab ursodioL [Jose] 500 mg PO BIDWM 10/06/17 02/25/20 02/24/20 History 500 mg Cholecalciferol Vit D3 [Vitamin D3 500 units PO BID 02/05/19 02/25/20 02/24/20 History 1,000 UNIT TAB] 1 tab oxyCODONE [roxiCODONE] 5 mg PO Q4HR PRN #40 tablet 07/23/19 02/25/20 01/12/20 Rx 5 mg [place]-3 Fatty Acids/Fish Oil [Fish 1 tab PO DAILY 09/24/19 02/25/20 02/24/20 History Oil] 1000 cephALEXin [Keflex] 500 mg PO Q12HR #20 cap 02/25/20 Unknown Rx Active Medications Fentanyl (Fentanyl 100 Mcg/2 Ml Inj) 100 mcg IV ONCE NR Stop: 02/25/20 23:00 Last Admin: 02/25/20 10:24 Dose: 100 mcg Documented by: Sodium Chloride (Nacl 0.9% 500 Ml) 500 mls @ 50 mls/hr IV DIRECT NIA Last Admin: 02/25/20 10:19 Dose: 50 mls/hr Documented by: Midazolam HCl (Midazolam 5 Mg/5 Ml Inj Mdv) 5 mg IV ONCE NR Stop: 02/25/20 23:00 Last Admin: 02/25/20 10:38 Dose: 3 mg Documented by: - Physical exam General appearance: mild distress (left buttock, abdomen and pelvis pain) Lungs: Normal air movement Gastrointestinal: other (left flank, abdomen, pelvis, and buttock pain) - Brief post op/procedure progress note Date of procedure: 02/25/20 Pre-op diagnosis: Recurrent mucocele/pseudomyoxma perionii Post-op diagnosis: same Procedure: 16 Fr drain of the abdomen and pelvis Anesthesia: local (w/ conscious sedation) Surgeon: SALVADOR ZAMUDIO Estimated blood loss: minimal Condition: stable - Hospital course Hospital course: Tolerated procedure well. No immediate post procedural complication - Disposition Condition at discharge: Stable Disposition: DC-01 TO HOME OR SELFCARE - Discharge Diagnoses (1) Abdominal fluid collection Status: Acute (2) Ulcerative colitis Status: Acute (3) Primary sclerosing cholangitis Status: Chronic Short Stay Discharge Plan Activity: advance as tolerated Weight Bearing Status: Weight Bear as Tolerated Diet: advance as tolerated Wound: keep clean and dry (remove stitches in 5-7 days) Follow up with: PRIMARY CARE, [Primary Care Provider] - 7 Days Prescriptions: cephALEXin [Keflex] 500 mg PO Q12HR #20 cap
== END 2020-02-25 06:48 | disposition home or self-care (01) ==
LOC: CATHLABREC 06:47
PROVIDERS: ATTEND Radiology Diagnostic Radiology
DX: R19.00 Intra-abdominal and pelvic swelling, mass and lump, unspecified site (principal); K51.90 Ulcerative colitis, unspecified, without complications; K83.09 Other cholangitis; I10 Essential (primary) hypertension; Z85.038 Personal history of other malignant neoplasm of large intestine; Z87.442 Personal history of urinary calculi; Z90.5 Acquired absence of kidney; Z79.899 Other long term (current) drug therapy; Z98.890 Other specified postprocedural states; Z80.0 Family history of malignant neoplasm of digestive organs
CPT/HCPCS: 10160; 36415; 77012; 85027; 85610; 85730; C1769; J2250; J3010; J7040

== ENCOUNTER 2020-03-17 06:53 | Outpatient (CLI) | payer MEDICARE ==
[2020-03-17] MEDS ORDERED: MIDAZOLAM 5 MG/5 ML INJ MDV IV ONE ×2 (07:27→11:23)
[2020-03-17] MEDS ORDERED: fentaNYL 100 MCG/2 ML INJ IV ONE (07:28)
[2020-03-17 07:52] LABS: Basophils # (Auto) 0.1 K/mm3 (0.0-0.1); Basophils % (Auto) 0.7 % (0.0-1.8); Eosinophils # (Auto) 0.3 K/mm3 (0.0-0.4); Eosinophils % (Auto) 4.2 % (0.0-4.3); Hematocrit 40.2 % (35.5-45.6); Hemoglobin 13.7 gm/dl (11.8-15.2); Lymphocytes % (Auto) 13.4 % (13.4-35.0); Mean Corpuscular HGB Conc 34 % (32-34); Mean Corpuscular Volume 88 fl (84-94); Monocytes # (Auto) 0.4 K/mm3 (0.0-0.8); Monocytes % (Auto) 4.7 % (0.0-7.3); Platelet Count 253 K/mm3 (140-440); Red Blood Count 4.58 M/mm3 (3.65-5.03); Red Cell Distribution Width 15.5 % (13.2-15.2)
[2020-03-17 07:54] LABS: INR 0.96 (0.87-1.13)
[2020-03-17] MEDS ORDERED: fentaNYL 100 MCG/2 ML INJ ONE ×2 (11:23→12:05)
[2020-03-17] MEDS ORDERED: SODIUM CHLORIDE 0.9% 500 ML 500 ML ONE (11:29)
[2020-03-17] MEDS ORDERED: SODIUM CHLORIDE 0.9% 500 ML 500 ML IV SCH (12:00)
--- NOTE | 2020-03-17 13:37 | Short Stay Summary ---
Short Stay Documentation Date of service: 03/17/20 Narrative H&P: 64-year-old male with history of ulcerative colitis status post proctocolectomy with end colostomy with residual mucocele and pseudomyxoma of the cyst who has been refractory to all surgical attempts to remove cyst and is palliated through CT-guided drainage of the mucocele. - History Principal diagnosis: Pseudomyxoma peritonei Past Medical History: cancer (history of colon cancer), liver disease (PSC) Past Surgical History: bowel surgery, Other (bladder surgery) Social history: - Allergies and Medications Current Medications: Allergies No Known Allergies Allergy (Verified 10/29/19 07:47) Home Medications Medication Instructions Recorded Confirmed Last Taken Type Magnesium 1 tab PO DAILY 10/06/17 02/25/20 02/24/20 History 1 tab Multivitamin [Multiple Vitamins] 1 each PO DAILY 10/06/17 02/25/20 02/24/20 History 1 tab ursodioL [Jose] 500 mg PO BIDWM 10/06/17 02/25/20 02/24/20 History 500 mg Cholecalciferol Vit D3 [Vitamin D3 500 units PO BID 02/05/19 02/25/20 02/24/20 History 1,000 UNIT TAB] 1 tab oxyCODONE [roxiCODONE] 5 mg PO Q4HR PRN #40 tablet 07/23/19 02/25/20 01/12/20 Rx 5 mg [place]-3 Fatty Acids/Fish Oil [Fish 1 tab PO DAILY 09/24/19 02/25/20 02/24/20 History Oil] 1000 cephALEXin [Keflex] 500 mg PO Q12HR #20 cap 02/25/20 Unknown Rx Active Medications Sodium Chloride (Nacl 0.9% 500 Ml) 500 mls @ 50 mls/hr IV DIRECT NIA - Physical exam General appearance: mild distress (abdominal and pelvic discomfort) Lungs: Normal air movement Gastrointestinal: other (pelvic and left buttock discomfort) - Brief post op/procedure progress note Date of procedure: 03/17/20 Pre-op diagnosis: Pseudomyxoma peritonei Post-op diagnosis: same Procedure: 16 Fr APD drain pelvic mucocele drainage under CT guidance Anesthesia: local (w/ conscious sedation) Surgeon: SALVADOR ZAMUDIO Estimated blood loss: minimal Condition: stable - Hospital course Hospital course: Tolerated the procedure without issue. Ready for discharge. - Disposition Condition at discharge: Stable Disposition: DC-01 TO HOME OR SELFCARE - Discharge Diagnoses (1) Abdominal fluid collection Status: Acute (2) Ulcerative colitis Status: Acute (3) Primary sclerosing cholangitis Status: Chronic Short Stay Discharge Plan Activity: advance as tolerated Diet: regular Wound: keep clean and dry (remove stitches in 7 days) Additional Instructions: follow up with Primary Medical Doctor in 1 week, return to Emergency Room (ER) for medical emergency Follow up with: PRIMARY CAREMD [Primary Care Provider] - 7 Days
--- NOTE | 2020-03-17 13:40 | Operative Report ---
Operative Report Operative Report: EXAM: CT guided abdominal fluid collection 16 Swazi drain placement CLINICAL INDICATION: Patient with ulcerative colitis, primary sclerosing cholangitis, status post proctocolectomy with recurrent mucocele which has been drained repeatedly in the past with severe mass effect symptoms who presented requesting drainage. Risks, benefits, and alternatives discussed. DATE: 03/17/2019 HAIR SPINNING MACHINE OPERATOR: SALVADOR ZAMUDIO MD MEDICATIONS: Conscious sedation using Versed and fentanyl was performed under guidance of radiologic nursing. Continuous cardiopulmonary monitoring was utilized. PROCEDURE: Following an explanation of the risks, benefits and alternatives; written informed consent was obtained. The patient was brought to the CT suite and placed in the prone position on the CT table. Logistics Director CT was performed of the abdomen and pelvis. After determining the appropriate site, the skin was infiltrated with lidocaine and a finder needle was placed. Intermittent CT was performed until the desired position was identified. The 18 gauge trocar needle was inserted into the left buttock into the fluid collection that extended into the abdomen and pelvis. J wire was then advanced through the needle and into the collection. The needle was exchanged for multiple dilators that were used to serially dilate over the wire. A 16 Fr APD drain was advanced over the wire and metal stiffener. The metal stiffener and wire were removed. CT scanning was performed. The pigtail was secured and aspirated until no more material could be aspirated. 2-0 Silk sutures were used to close the dermatotomy. Sterile bandage was applied. The patient tolerated the procedure well. There were no immediate postprocedural complications. FINDINGS: 1. Initial CT demonstrates a large fluid collection in the abdomen and pelvic extending into the left buttocks and thigh region. There is a satisfactory window for CT drainage. 2. Intermittent CT demonstrates the 18 gauge needle was placed in the fluid collection. 3. Wire is coiled in the abdomen and pelvic fluid collection. 4. CT documents placement of a 16 Fr drain in the abdominal and pelvic fluid collection. 5. A total of approximately 3.0 L of dark gelatinous material was aspirated through the drain and initial needle. IMPRESSION: Successful CT guided 16 Swazi drain placement in a large abdomen and pelvic mucocele
[2020-03-17 13:58] VITALS: BP 163/103
--- NOTE | 2020-03-18 15:56 | Cat Scan Report ---
PLEASE SEE OPERATIVE REPORT IN [facility] FOR DETAILS.
== END 2020-03-17 14:19 | disposition home or self-care (01) ==
LOC: CATHLABREC 06:53
PROVIDERS: ATTEND Radiology Diagnostic Radiology
DX: R19.00 Intra-abdominal and pelvic swelling, mass and lump, unspecified site (principal); I10 Essential (primary) hypertension; K51.90 Ulcerative colitis, unspecified, without complications; K83.09 Other cholangitis; Z85.038 Personal history of other malignant neoplasm of large intestine; Z87.442 Personal history of urinary calculi; Z90.5 Acquired absence of kidney; Z98.890 Other specified postprocedural states; Z79.899 Other long term (current) drug therapy; Z80.0 Family history of malignant neoplasm of digestive organs
CPT/HCPCS: 10160; 36415; 77012; 85025; 85610; 85730; J2250; J3010; J7040

== ENCOUNTER 2020-04-07 07:00 | Outpatient (CLI) | payer MEDICARE ==
[2020-04-07] MEDS ORDERED: fentaNYL 100 MCG/2 ML INJ IV NR (08:52)
[2020-04-07] MEDS ORDERED: MIDAZOLAM 5 MG/5 ML INJ MDV IV NR (08:52)
[2020-04-07] MEDS ORDERED: SODIUM CHLORIDE 0.9% 500 ML 500 ML IV SCH (09:00)
[2020-04-07] MEDS ORDERED: SODIUM CHLORIDE 0.9% 500 ML 500 ML ONE (09:03)
[2020-04-07] MEDS ORDERED: fentaNYL 100 MCG/2 ML INJ IV ONE (09:10)
[2020-04-07] MEDS ORDERED: LIDOCAINE 2%/EPINEPHRINE 1:200,000 VIAL (20 ML) INFILTRATI ONE (10:00)
--- NOTE | 2020-04-07 10:52 | Short Stay Summary ---
Short Stay Documentation Date of service: 04/07/20 Narrative H&P: 64-year-old male with history of ulcerative colitis status post proctocolectomy with end colostomy with residual mucocele and pseudomyxoma of the cyst who has been refractory to all surgical attempts to remove cyst and is palliated through CT-guided drainage of the mucocele. - History Principal diagnosis: Pseudomyxoma peritonei Past Medical History: cancer (history of colon cancer), liver disease (PSC) Past Surgical History: bowel surgery, Other (bladder surgery) Social history: - Allergies and Medications Current Medications: Allergies No Known Allergies Allergy (Verified 10/29/19 07:47) Home Medications Medication Instructions Recorded Confirmed Last Taken Type Magnesium 1 tab PO DAILY 10/06/17 02/25/20 02/24/20 History 1 tab Multivitamin [Multiple Vitamins] 1 each PO DAILY 10/06/17 02/25/20 02/24/20 History 1 tab ursodioL [Jose] 500 mg PO BIDWM 10/06/17 02/25/20 02/24/20 History 500 mg Cholecalciferol Vit D3 [Vitamin D3 500 units PO BID 02/05/19 02/25/20 02/24/20 History 1,000 UNIT TAB] 1 tab oxyCODONE [roxiCODONE] 5 mg PO Q4HR PRN #40 tablet 07/23/19 02/25/20 01/12/20 Rx 5 mg [place]-3 Fatty Acids/Fish Oil [Fish 1 tab PO DAILY 09/24/19 02/25/20 02/24/20 History Oil] 1000 cephALEXin [Keflex] 500 mg PO Q12HR #20 cap 02/25/20 Unknown Rx - Physical exam General appearance: mild distress (left pelvic and buttock discomfort) Lungs: Normal air movement Gastrointestinal: tenderness (pelvic and left buttock), masses Extremities: normal temperature, normal color - Brief post op/procedure progress note Date of procedure: 04/07/20 Pre-op diagnosis: Recurrent mucocele/pseudomyxoma peritoneii Post-op diagnosis: same Procedure: CT guided drainage of the abdomen and pelvic fluid collection Anesthesia: local (w/ conscious sedation) Surgeon: SALVADOR ZAMUDIO Estimated blood loss: minimal Condition: stable - Hospital course Hospital course: Tolerated procedure well. No immediate post procedural complications. - Disposition Condition at discharge: Stable Disposition: DC-01 TO HOME OR SELFCARE - Discharge Diagnoses (1) Abdominal fluid collection Status: Acute (2) Ulcerative colitis Status: Acute (3) Primary sclerosing cholangitis Status: Chronic Short Stay Discharge Plan Activity: advance as tolerated Weight Bearing Status: Weight Bear as Tolerated Diet: regular Wound: keep clean and dry (remove stitches in 5-7 days) Follow up with: PRIMARY CAREMD [Primary Care Provider] - 7 Days
--- NOTE | 2020-04-07 10:52 | Operative Report ---
Operative Report Operative Report: EXAM: CT guided abdominal fluid collection 16 Croatian drain placement CLINICAL INDICATION: Patient with ulcerative colitis, primary sclerosing cholangitis, status post proctocolectomy with recurrent mucocele which has been drained repeatedly in the past with severe mass effect symptoms who presented requesting drainage. Risks, benefits, and alternatives discussed. DATE: 04/07/2019 ALLERGIST/MD: SALVADOR ZAMUDIO MD MEDICATIONS: Conscious sedation using Versed and fentanyl was performed under guidance of radiologic nursing. Continuous cardiopulmonary monitoring was utilized. PROCEDURE: Following an explanation of the risks, benefits and alternatives; written informed consent was obtained. The patient was brought to the CT suite and placed in the prone position on the CT table. Lock Plater CT was performed of the abdomen and pelvis. After determining the appropriate site, the skin was infiltrated with lidocaine and a finder needle was placed. Intermittent CT was performed until the desired position was identified. The 18 gauge trocar needle was inserted into the left buttock into the fluid collection that extended into the abdomen and pelvis. J wire was then advanced through the needle and into the collection. The needle was exchanged for multiple dilators that were used to serially dilate over the wire. A 16 Fr APD drain was advanced over the wire and metal stiffener. The metal stiffener and wire were removed. CT scanning was performed. The pigtail was secured and aspirated until no more material could be aspirated. 2-0 Silk sutures were used to close the dermatotomy. Sterile bandage was applied. The patient tolerated the procedure well. There were no immediate postprocedural complications. FINDINGS: 1. Initial CT demonstrates a large fluid collection in the abdomen and pelvic extending into the left buttocks and thigh region. There is a satisfactory window for CT drainage. 2. Intermittent CT demonstrates the 18 gauge needle was placed in the fluid collection. 3. Wire is coiled in the abdomen and pelvic fluid collection. 4. CT documents placement of a 16 Fr drain in the abdominal and pelvic fluid collection. 5. A total of approximately 3.1 L of dark gelatinous material was aspirated through the drain and initial needle. IMPRESSION: Successful CT guided 16 Croatian drain placement in a large abdomen and pelvic mucocele
[2020-04-07 11:20] VITALS: BP 156/98
== END 2020-04-07 11:50 | disposition home or self-care (01) ==
LOC: CATHLABREC 07:00
PROVIDERS: ATTEND Radiology Diagnostic Radiology
DX: R19.00 Intra-abdominal and pelvic swelling, mass and lump, unspecified site (principal); K51.90 Ulcerative colitis, unspecified, without complications; I10 Essential (primary) hypertension; Z87.442 Personal history of urinary calculi; Z79.899 Other long term (current) drug therapy; Z85.038 Personal history of other malignant neoplasm of large intestine; Z90.5 Acquired absence of kidney; Z98.890 Other specified postprocedural states; Z80.0 Family history of malignant neoplasm of digestive organs
CPT/HCPCS: 10160; 77012; C1769; J2250; J3010; J7040

== ENCOUNTER 2020-04-28 06:43 | Outpatient (CLI) | payer MEDICARE ==
[2020-04-28] MEDS ORDERED: MIDAZOLAM 5 MG/5 ML INJ MDV IV ONE (07:22)
[2020-04-28] MEDS ORDERED: fentaNYL 100 MCG/2 ML INJ IV ONE (07:22)
[2020-04-28 07:44] LABS: Basophils # (Auto) 0.1 K/mm3 (0.0-0.1); Eosinophils # (Auto) 0.2 K/mm3 (0.0-0.4); Eosinophils % (Auto) 3.2 % (0.0-4.3); Hemoglobin 12.8 gm/dl (11.8-15.2); Lymphocytes # (Auto) 0.8 K/mm3 (1.2-5.4); Lymphocytes % (Auto) 12.6 % (13.4-35.0); Mean Corpuscular HGB Conc 33 % (32-34); Mean Corpuscular Volume 88 fl (84-94); Monocytes # (Auto) 0.4 K/mm3 (0.0-0.8); Monocytes % (Auto) 6.1 % (0.0-7.3); Platelet Count 246 K/mm3 (140-440); Red Blood Count 4.45 M/mm3 (3.65-5.03); Red Cell Distribution Width 15.3 % (13.2-15.2)
[2020-04-28 07:50] LABS: INR 0.93 (0.87-1.13)
[2020-04-28 07:51] LABS: Partial Thromboplastin Time 40.3 Sec. (24.2-36.6)
[2020-04-28] MEDS ORDERED: ceFAZolin/Water 2 GM/20 ML 2 GM/20 ML SYRINGE IV ONE ×2 (08:37→08:39)
[2020-04-28] MEDS ORDERED: SODIUM CHLORIDE 0.9% 500 ML 500 ML IV SCH (09:00)
[2020-04-28 10:52] VITALS: BP 168/98
--- NOTE | 2020-04-28 14:57 | Short Stay Summary ---
Short Stay Documentation Date of service: 04/28/20 Narrative H&P: 64-year-old male with history of ulcerative colitis status post proctocolectomy with end colostomy with residual mucocele and pseudomyxoma of the cyst who has been refractory to all surgical attempts to remove cyst and is palliated through CT-guided drainage of the mucocele. - History Principal diagnosis: Pseudomyxoma peritonei Past Medical History: cancer (history of colon cancer), liver disease (PSC) Past Surgical History: bowel surgery, Other (bladder surgery) Social history: - Allergies and Medications Current Medications: Allergies No Known Allergies Allergy (Verified 10/29/19 07:47) Home Medications Medication Instructions Recorded Confirmed Last Taken Type Magnesium 1 tab PO DAILY 10/06/17 04/28/20 04/27/20 History 1 tab Multivitamin [Multiple Vitamins] 1 each PO DAILY 10/06/17 04/28/20 04/27/20 History 1 tab ursodioL [Jose] 500 mg PO BIDWM 10/06/17 04/28/20 04/27/20 History 500 mg Cholecalciferol Vit D3 [Vitamin D3 500 units PO BID 02/05/19 04/28/20 04/27/20 History 1,000 UNIT TAB] 500 units oxyCODONE [roxiCODONE] 5 mg PO Q4HR PRN #40 tablet 07/23/19 04/28/20 04/27/20 Rx 5 mg [place]-3 Fatty Acids/Fish Oil [Fish 1 tab PO DAILY 09/24/19 04/28/20 04/27/20 History Oil] 1 tab cephALEXin [Keflex] 500 mg PO Q12HR #20 cap 02/25/20 04/28/20 03/31/20 Rx 500 mg - Physical exam General appearance: no acute distress HEENT: PERRLA, EOMI Lungs: Normal air movement Gastrointestinal: other (pelvic & left buttock tenderness) - Brief post op/procedure progress note Date of procedure: 04/28/20 Pre-op diagnosis: Mucocele Post-op diagnosis: same Procedure: 16 Fr APD drain of the pelvic fluid collection Anesthesia: local (w/ conscious sedation) Findings: 3.25 L mucus Surgeon: SALVADOR ZAMUDIO Estimated blood loss: minimal Condition: stable - Hospital course Hospital course: Ready for discharge. Patient tolerated procedure without issue. - Disposition Condition at discharge: Stable Disposition: DC-01 TO HOME OR SELFCARE - Discharge Diagnoses (1) Abdominal fluid collection Status: Acute (2) Ulcerative colitis Status: Acute (3) Primary sclerosing cholangitis Status: Chronic Short Stay Discharge Plan Activity: advance as tolerated Weight Bearing Status: Weight Bear as Tolerated Diet: regular Wound: keep clean and dry (remove stitches in 5-7 days) Follow up with: PRIMARY CARE, [Primary Care Provider] - 7 Days
--- NOTE | 2020-04-28 14:57 | Operative Report ---
Operative Report Operative Report: EXAM: CT guided abdominal fluid collection 16 Japanese drain placement CLINICAL INDICATION: Patient with ulcerative colitis, primary sclerosing cholangitis, status post proctocolectomy with recurrent mucocele which has been drained repeatedly in the past with severe mass effect symptoms who presented requesting drainage. Risks, benefits, and alternatives discussed. DATE: 04/30/2019 WATCH PARTS GRINDER: SALVADOR ZAMUDIO MD MEDICATIONS: Conscious sedation using Versed and fentanyl was performed under guidance of radiologic nursing. Continuous cardiopulmonary monitoring was utilized. PROCEDURE: Following an explanation of the risks, benefits and alternatives; written informed consent was obtained. The patient was brought to the CT suite and placed in the prone position on the CT table. Special Library Librarian CT was performed of the abdomen and pelvis. After determining the appropriate site, the skin was infiltrated with lidocaine and a finder needle was placed. Intermittent CT was performed until the desired position was identified. The 18 gauge trocar needle was inserted into the left buttock into the fluid collection that extended into the abdomen and pelvis. J wire was then advanced through the needle and into the collection. The needle was exchanged for multiple dilators that were used to serially dilate over the wire. A 16 Fr APD drain was advanced over the wire and metal stiffener. The metal stiffener and wire were removed. CT scanning was performed. The pigtail was secured and aspirated until no more material could be aspirated. 2-0 Silk sutures were used to close the dermatotomy. Sterile bandage was applied. The patient tolerated the procedure well. There were no immediate postprocedural complications. FINDINGS: 1. Initial CT demonstrates a large fluid collection in the abdomen and pelvic extending into the left buttocks and thigh region. There is a satisfactory window for CT drainage. 2. Intermittent CT demonstrates the 18 gauge needle was placed in the fluid collection. 3. Wire is coiled in the abdomen and pelvic fluid collection. 4. CT documents placement of a 16 Fr drain in the abdominal and pelvic fluid collection. 5. A total of approximately 3.25 L of dark gelatinous material was aspirated through the drain and initial needle. IMPRESSION: Successful CT guided 16 Japanese drain placement in a large abdomen and pelvic mucocele
== END 2020-04-28 11:20 | disposition home or self-care (01) ==
LOC: CATHLABREC 06:43
PROVIDERS: ATTEND Radiology Diagnostic Radiology
DX: R19.00 Intra-abdominal and pelvic swelling, mass and lump, unspecified site (principal); K83.09 Other cholangitis; K51.90 Ulcerative colitis, unspecified, without complications; I10 Essential (primary) hypertension; Z87.442 Personal history of urinary calculi; Z79.899 Other long term (current) drug therapy; Z85.038 Personal history of other malignant neoplasm of large intestine; Z90.5 Acquired absence of kidney; Z98.890 Other specified postprocedural states; Z80.0 Family history of malignant neoplasm of digestive organs
CPT/HCPCS: 10160; 36415; 77012; 85025; 85610; 85730; 96374; C1769; J0690; J2250; J3010; J7040

== ENCOUNTER 2020-06-09 06:57 | Outpatient (CLI) | payer MEDICARE ==
[2020-06-09] MEDS ORDERED: fentaNYL 100 MCG/2 ML INJ IV NR (07:20)
[2020-06-09] MEDS ORDERED: MIDAZOLAM 5 MG/5 ML INJ MDV IV NR (07:20)
[2020-06-09 07:37] LABS: Basophils % (Auto) 0.6 % (0.0-1.8); Eosinophils # (Auto) 0.1 K/mm3 (0.0-0.4); Eosinophils % (Auto) 1.8 % (0.0-4.3); Hematocrit 40.9 % (35.5-45.6); Hemoglobin 14.1 gm/dl (11.8-15.2); Lymphocytes # (Auto) 0.9 K/mm3 (1.2-5.4); Lymphocytes % (Auto) 12.8 % (13.4-35.0); Mean Corpuscular HGB Conc 34 % (32-34); Mean Corpuscular Volume 88 fl (84-94); Monocytes # (Auto) 0.4 K/mm3 (0.0-0.8); Monocytes % (Auto) 5.5 % (0.0-7.3); Platelet Count 253 K/mm3 (140-440); Red Blood Count 4.66 M/mm3 (3.65-5.03); Red Cell Distribution Width 15.4 % (13.2-15.2)
[2020-06-09 07:48] LABS: Partial Thromboplastin Time 38.6 Sec. (24.2-36.6)
[2020-06-09] MEDS ORDERED: SODIUM CHLORIDE 0.9% 500 ML 500 ML IV SCH (08:00)
[2020-06-09] MEDS ORDERED: ceFAZolin/Water 2 GM/20 ML 2 GM/20 ML SYRINGE IV ONE (08:53)
[2020-06-09] MEDS ORDERED: LIDOCAINE 1%/EPINEPHRINE 1:100,000 VIAL (20 ML) INFILTRATI ONE (09:00)
--- NOTE | 2020-06-09 10:45 | Short Stay Summary ---
Short Stay Documentation Date of service: 06/09/20 Narrative H&P: 64-year-old male with history of ulcerative colitis status post proctocolectomy with end colostomy with residual mucocele and pseudomyxoma of the cyst who has been refractory to all surgical attempts to remove cyst and is palliated through CT-guided drainage of the mucocele. - History Principal diagnosis: Pseudomyxoma peritonei Past Medical History: cancer (history of colon cancer), liver disease (PSC) Past Surgical History: bowel surgery, Other (bladder surgery) Social history: - Allergies and Medications Current Medications: Allergies No Known Allergies Allergy (Verified 10/29/19 07:47) Home Medications Medication Instructions Recorded Confirmed Last Taken Type Magnesium 1 tab PO DAILY 10/06/17 06/09/20 06/08/20 History Multivitamin [Multiple Vitamins] 1 each PO DAILY 10/06/17 06/09/20 06/08/20 History ursodioL [Jose] 500 mg PO BIDWM 10/06/17 06/09/20 06/08/20 History Cholecalciferol Vit D3 [Vitamin D3 500 units PO BID 02/05/19 06/09/20 06/08/20 History 1,000 UNIT TAB] oxyCODONE [roxiCODONE] 5 mg PO Q4HR PRN #40 tablet 07/23/19 06/09/20 06/08/20 Rx [place]-3 Fatty Acids/Fish Oil [Fish 1 tab PO DAILY 09/24/19 06/09/20 06/08/20 History Oil] cephALEXin [Keflex] 500 mg PO Q12HR #20 cap 02/25/20 06/09/20 06/08/20 Rx Active Medications Fentanyl (Fentanyl 100 Mcg/2 Ml Inj) 100 mcg IV ONCE NR Stop: 06/09/20 20:00 Last Admin: 06/09/20 09:41 Dose: 100 mcg Documented by: Sodium Chloride (Nacl 0.9% 500 Ml) 500 mls @ 50 mls/hr IV DIRECT NIA Midazolam HCl (Midazolam 5 Mg/5 Ml Inj Mdv) 5 mg IV ONCE NR Stop: 06/09/20 20:00 Last Admin: 06/09/20 09:50 Dose: 3 mg Documented by: - Physical exam General appearance: no acute distress Lungs: Normal air movement Rectal Exam: other (tender and distended left buttocks) - Brief post op/procedure progress note Date of procedure: 06/09/20 Pre-op diagnosis: Recurrent mucocele Post-op diagnosis: same Procedure: CT guided drainage of pelvic mucocele fluid collection Anesthesia: local (w/ conscious sedation) Surgeon: SALVADOR ZAMUDIO Estimated blood loss: minimal Pathology: none Condition: stable - Hospital course Hospital course: Tolerated procedure. No immediate post surgical complications. - Disposition Condition at discharge: Stable Disposition: DC-01 TO HOME OR SELFCARE - Discharge Diagnoses (1) Abdominal fluid collection Status: Acute (2) Primary sclerosing cholangitis Status: Chronic (3) Ulcerative colitis Status: Acute Short Stay Discharge Plan Activity: advance as tolerated Weight Bearing Status: Weight Bear as Tolerated Diet: regular Wound: keep clean and dry (remove stitches in 5-7 days) Follow up with: PRIMARY CAREMD [Primary Care Provider] - 7 Days
--- NOTE | 2020-06-09 10:49 | Operative Report ---
Operative Report Operative Report: EXAM: CT guided abdominal fluid collection 16 Frisian drain placement CLINICAL INDICATION: Patient with ulcerative colitis, primary sclerosing cholangitis, status post proctocolectomy with recurrent mucocele which has been drained repeatedly in the past with severe mass effect symptoms who presented requesting drainage. Risks, benefits, and alternatives discussed. DATE: 06/10/2019 ACTUARIAL ASSOCIATE: SALVADOR ZAMUDIO MD MEDICATIONS: Conscious sedation using Versed and fentanyl was performed under guidance of radiologic nursing. Continuous cardiopulmonary monitoring was utilized. PROCEDURE: Following an explanation of the risks, benefits and alternatives; written informed consent was obtained. The patient was brought to the CT suite and placed in the prone position on the CT table. Epic Professional CT was performed of the abdomen and pelvis. After determining the appropriate site, the skin was infiltr ated with lidocaine and a finder needle was placed. Intermittent CT was performed until the desired position was identified. The 18 gauge trocar needle was inserted into the left buttock into the fluid collection that extended into the abdomen and pelvis. J wire was then advanced through the needle and into the collection. The needle was exchanged for multiple dilators that were used to serially dilate over the wire. A 16 Fr APD drain was advanced over the wire and metal stiffener. The metal stiffener and wire were removed. CT scanning was performed. The pigtail was secured and aspirated until no more material could be aspirated. 2-0 Silk sutures were used to close the dermatotomy. Sterile bandage was applied. The patient tolerated the procedure well. There were no immediate postprocedural complications. FINDINGS: 1. Initial CT demonstrates a large fluid collection in the abdomen and pelvic extending into the left buttocks and thigh region. There is a satisfactory window for CT drainage. 2. Intermittent CT demonstrates the 18 gauge needle was placed in the fluid collection. 3. Wire is coiled in the abdomen and pelvic fluid collection. 4. CT documents placement of a 16 Fr drain in the abdominal and pelvic fluid collection. 5. A total of approximately 4.25 L of dark gelatinous material was aspirated through the drain and initial needle. IMPRESSION: Successful CT guided 16 Frisian drain placement in a large abdomen and pelvic mucocele
[2020-06-09 11:13] VITALS: BP 163/96
== END 2020-06-09 11:50 | disposition home or self-care (01) ==
LOC: CATHLABREC 06:57
PROVIDERS: ATTEND Radiology Diagnostic Radiology
DX: R19.00 Intra-abdominal and pelvic swelling, mass and lump, unspecified site (principal); I10 Essential (primary) hypertension; Z85.038 Personal history of other malignant neoplasm of large intestine; Z87.442 Personal history of urinary calculi; Z79.899 Other long term (current) drug therapy; Z90.5 Acquired absence of kidney; Z98.890 Other specified postprocedural states; Z80.0 Family history of malignant neoplasm of digestive organs
CPT/HCPCS: 10160; 36415; 77012; 85025; 85610; 85730; J0690; J2250; J3010; J7040

== ENCOUNTER 2020-07-14 06:53 | Emergency (ER) | payer MEDICARE ==
[2020-07-14] MEDS ORDERED: ONDANSETRON 4 MG/2 ML INJ IV ONE (09:33)
[2020-07-14] MEDS ORDERED: MORPHINE 4 MG/1 ML INJ IV ONE (09:33)
--- NOTE | 2020-07-14 09:33 | Emergency Department Report ---
ED General Adult HPI - General Chief complaint: Skin/Abscess/Foreign Body Stated complaint: MUCUS SEAL/DRAIN Time Seen by Provider: 07/14/20 09:25 Source: patient Mode of arrival: Ambulatory Limitations: No Limitations - History of Present Illness Initial comments: Patient is 64 years old male with history of ulcerative colitis, primary sclerosing cholangitis, status post proctocolectomy with recurrent mucocele which has been read repeatedly by Dr. Glover in the [facility]. Mucocele has a severe mass-effect on the patient. Patient presented today stating that the pressure is getting worse and he cannot tolerated until his next appointment on July 21. Patient denied any fever or chills. He also denied any nausea or vomiting. - Related Data Home Medications Medication Instructions Recorded Confirmed Last Taken Magnesium 1 tab PO DAILY 10/06/17 06/09/20 06/08/20 Multivitamin [Multiple Vitamins] 1 each PO DAILY 10/06/17 06/09/20 06/08/20 ursodioL [Jose] 500 mg PO BIDWM 10/06/17 06/09/20 06/08/20 Cholecalciferol Vit D3 [Vitamin D3 500 units PO BID 02/05/19 06/09/20 06/08/20 1,000 UNIT TAB] [place]-3 Fatty Acids/Fish Oil [Fish 1 tab PO DAILY 09/24/19 06/09/20 06/08/20 Oil] Previous Rx's Medication Instructions Recorded Last Taken Type oxyCODONE [roxiCODONE] 5 mg PO Q4HR PRN #40 tablet 07/23/19 06/08/20 Rx cephALEXin [Keflex] 500 mg PO Q12HR #20 cap 02/25/20 06/08/20 Rx cephALEXin [Keflex] 500 mg PO Q12HR #20 capsule 07/14/20 Unknown Rx traMADoL [Ultram 50 MG tab] 50 mg PO TID PRN #25 tablet 07/14/20 Unknown Rx Allergies Allergy/AdvReac Type Severity Reaction Status Date / Time No Known Allergies Allergy Verified 07/14/20 07:16 ED Review of Systems ROS: Stated complaint: MUCUS SEAL/DRAIN Other details as noted in HPI Comment: All other systems reviewed and negative Respiratory: denies: cough, shortness of breath Gastrointestinal: denies: abdominal pain, nausea, vomiting Neurological: denies: headache ED Past Medical Hx - Past Medical History Hx Hypertension: Yes Hx of Cancer: Yes (COLON- NOT CURRENT) Hx Kidney Stones: Yes (no surgery) Hx HIV: No - Social History Smoking Status: Never Smoker Substance Use Type: None - Medications Home Medications: Home Medications Medication Instructions Recorded Confirmed Last Taken Type Magnesium 1 tab PO DAILY 10/06/17 06/09/20 06/08/20 History Multivitamin [Multiple Vitamins] 1 each PO DAILY 10/06/17 06/09/20 06/08/20 History ursodioL [Jose] 500 mg PO BIDWM 10/06/17 06/09/20 06/08/20 History Cholecalciferol Vit D3 [Vitamin D3 500 units PO BID 02/05/19 06/09/20 06/08/20 History 1,000 UNIT TAB] oxyCODONE [roxiCODONE] 5 mg PO Q4HR PRN #40 tablet 07/23/19 06/09/20 06/08/20 Rx [place]-3 Fatty Acids/Fish Oil [Fish 1 tab PO DAILY 09/24/19 06/09/20 06/08/20 History Oil] cephALEXin [Keflex] 500 mg PO Q12HR #20 cap 02/25/20 06/09/20 06/08/20 Rx cephALEXin [Keflex] 500 mg PO Q12HR #20 capsule 07/14/20 Unknown Rx traMADoL [Ultram 50 MG tab] 50 mg PO TID PRN #25 tablet 07/14/20 Unknown Rx ED Physical Exam - General Limitations: No Limitations General appearance: alert, in distress - Head Head exam: Present: atraumatic, normocephalic, normal inspection - Eye Eye exam: Present: normal appearance - ENT ENT exam: Present: normal exam, normal orophraynx, mucous membranes moist - Neck Neck exam: Present: normal inspection, full ROM. Absent: tenderness, meningismu s - Respiratory Respiratory exam: Present: normal lung sounds bilaterally - Cardiovascular Cardiovascular Exam: Present: tachycardia - GI/Abdominal GI/Abdominal exam: Present: soft, normal bowel sounds, other (Colostomy in place.). Absent: distended, tenderness, guarding, rebound, rigid - Rectal Rectal exam: Present: other (Patient has huge swelling to the left buttock area displacing his buttock cleft to the right.) - Extremities Exam Extremities exam: Present: normal inspection - Back Exam Back exam: Present: normal inspection, full ROM. Absent: CVA tenderness (R), CVA tenderness (L) - Neurological Exam Neurological exam: Present: alert, oriented X3, CN II-XII intact, normal gait, reflexes normal. Absent: motor sensory deficit ED Course Vital Signs 07/14/20 07/14/20 07/14/20 07:18 09:52 09:56 Temperature 99 F Pulse Rate 137 H Respiratory 22 16 16 Rate Blood Pressure 165/115 Blood Pressure [Left] O2 Sat by Pulse 97 Oximetry 07/14/20 10:01 Temperature 100.1 F H Pulse Rate 118 H Respiratory 17 Rate Blood Pressure Blood Pressure 158/97 [Left] O2 Sat by Pulse 97 Oximetry - Consultations Consultation #1: 07/14/20 10:54 I discussed the patient with Dr. Glover, vascular surgeon conductor road freight. Dr. Glover stated that he is coming down to do the procedure for him. ED Medical Decision Making - Lab Data Result diagrams: 07/14/20 09:47 07/14/20 09:47 - Medical Decision Making Patient is 64 years old male with history of ulcerative colitis, primary sclerosing cholangitis, status post proctocolectomy with recurrent mucocele which has been read repeatedly by Dr. Glover in the [facility]. Mucocele has a severe mass-effect on the patient. Patient presented today stating that the pressure is getting worse and he cannot tolerated until his next appointment on July 21. Patient denied any fever or chills. He also denied any nausea or vomiting. Patient was taken to the [facility] by Dr. Glover for drainage of the mucocele. Patient advised to follow-up with his primary doctor in the next 2 to 3 days and to return to the ER if he develop any new symptoms. Critical care attestation.: If time is entered above; I have spent that time in minutes in the direct care of this critically ill patient, excluding procedure time. ED Disposition Clinical Impression: Abdominal fluid collection, Cyst of buttocks Disposition: - TO HOME OR SELFCARE Is pt being admited?: No Condition: Stable Instructions: Moderate Conscious Sedation, Adult Prescriptions: cephALEXin [Keflex] 500 mg PO Q12HR #20 capsule traMADoL [Ultram 50 MG tab] 50 mg PO TID PRN #25 tablet PRN Reason: Pain Referrals: PRIMARY CARE, [Primary Care Provider] - 3-5 Days
[2020-07-14 09:58] LABS: Basophils # (Auto) 0.1 K/mm3 (0.0-0.1); Basophils % (Auto) 1.2 % (0.0-1.8); Eosinophils % (Auto) 0.1 % (0.0-4.3); Hematocrit 38.6 % (35.5-45.6); Hemoglobin 13.5 gm/dl (11.8-15.2); Lymphocytes # (Auto) 0.5 K/mm3 (1.2-5.4); Lymphocytes % (Auto) 5.3 % (13.4-35.0); Mean Corpuscular HGB Conc 35 % (32-34); Mean Corpuscular Volume 88 fl (84-94); Monocytes # (Auto) 0.6 K/mm3 (0.0-0.8); Platelet Count 243 K/mm3 (140-440)
[2020-07-14 10:16] LABS: BUN/Creatinine Ratio 15; Blood Urea Nitrogen 18 mg/dL (9-20); Calcium 9.3 mg/dL (8.4-10.2); Hemolysis Index 6
[2020-07-14] MEDS ORDERED: ACETAMINOPHEN 325 MG/10.15 ML ORAL LIQD UNIT DOSE PO ONE (10:56)
--- NOTE | 2020-07-14 11:42 | Consultation ---
History of Present Illness - Reason for Consult Consult date: 07/14/20 Mucocele Requesting physician: TEGAN ROGERS - History of Present Illness 64 years old male with history of ulcerative colitis, primary sclerosing cholangitis, status post proctocolectomy with recurrent mucocele which has been read repeatedly drained due to mass-effect symptoms. Patient presented today stating that the pressure is getting worse and he cannot tolerated until his next appointment on July 21. Patient denied any fever or chills. He also denied any nausea or vomiting. VIR consulted for recurrent mucocele. The mucocele was drained 2 weeks ago at [facility] where they did a biopsy. They did a suboptimal drainage associated with the biopsy. Typically patients drainages allow him to wait 3 to 4 weeks between drainages. Unfortunately, due to the limited drainage performed at [facility], he has now presenting earlier than his scheduled procedural date due to severe mas s-effect. Of note, his left buttock fluid collection is massive, larger than I have ever seen it, probably 20 x 20 x 15 cm. This is the external part of the collection with the internal part of the collection not visualized. It is painful to touch due to the tension within it. Patient has not been having fevers or chills. No evidence of infection. ROS: Stated complaint: MUCOCELE/DRAIN Other details as noted in HPI Comment: All other systems reviewed and negative Respiratory: denies: cough, shortness of breath Gastrointestinal: denies: abdominal pain, nausea, vomiting Neurological: denies: headache Past Medical History Hx Hypertension: Yes Hx of Cancer: Yes (COLON- NOT CURRENT) Hx Kidney Stones: Yes (no surgery) Hx HIV: No Social History Smoking Status: Never Smoker Substance Use Type: None Medications and Allergies Allergies Allergy/AdvReac Type Severity Reaction Status Date / Time No Known Allergies Allergy Verified 07/14/20 07:16 Home Medications Medication Instructions Recorded Confirmed Last Taken Type Magnesium 1 tab PO DAILY 10/06/17 06/09/20 06/08/20 History Multivitamin [Multiple Vitamins] 1 each PO DAILY 10/06/17 06/09/20 06/08/20 History ursodioL [Jose] 500 mg PO BIDWM 10/06/17 06/09/20 06/08/20 History Cholecalciferol Vit D3 [Vitamin D3 500 units PO BID 02/05/19 06/09/20 06/08/20 History 1,000 UNIT TAB] oxyCODONE [roxiCODONE] 5 mg PO Q4HR PRN #40 tablet 07/23/19 06/09/20 06/08/20 Rx [place]-3 Fatty Acids/Fish Oil [Fish 1 tab PO DAILY 09/24/19 06/09/20 06/08/20 History Oil] cephALEXin [Keflex] 500 mg PO Q12HR #20 cap 02/25/20 06/09/20 06/08/20 Rx Exam - Constitutional Vitals: Temp Pulse Resp BP Pulse Ox 100.1 F H 118 H 17 158/97 97 07/14/20 10:01 07/14/20 10:01 07/14/20 10:01 07/14/20 10:01 07/14/20 10:01 General appearance: Present: mild distress (Left buttock discomfort) - EENT Eyes: Present: EOM intact ENT: hearing intact - Respiratory Respiratory effort: normal - Extremities Extremities: normal temperature, normal color - Abdominal General gastrointestinal: Present: other (Pelvic pressure and discomfort, left buttocks discomfort with large external tense collection.) - Psychiatric Psychiatric: appropriate mood/affect, cooperative Results - Labs CBC & Chem 7: 07/14/20 09:47 07/14/20 09:47 Labs: Abnormal lab results 07/14/20 07/14/20 Range/Units 09:47 09:47 MCHC 35 H (32-34) % Lymph % (Auto) 5.3 L (13.4-35.0) % Lymph # (Auto) 0.5 L (1.2-5.4) K/mm3 Seg Neutrophils % 87.4 H (40.0-70.0) % Seg Neutrophils # 8.9 H (1.8-7.7) K/mm3 Glucose 115 H (75-100) mg/dL Assessment and Plan 64-year-old male with recurrent left mucocele which was suboptimally drained 2 weeks ago at [facility] where a biopsy was performed. [facility] is now managing the collection due to its enlarging size after previous treatment with chemotherapy at [facility]. Collection may be malignant based on cytology obtained at [facility]. Cytology was obtained approximately 4 times at [facility] which was benign, but has not been checked in a year or so. Discussed options with patient. Draining this for palliative purposes is the only option available at this time. Patient and I agree with the plan. Risks, benefits, and alternatives discussed, plan for drainage of the fluid collection. Patient can be discharged 1 hour after drainage. Not sure if sending off fluid is necessary given cytology at [facility].
[2020-07-14] MEDS ORDERED: SODIUM CHLORIDE 0.9% 500 ML 500 ML ONE (13:38)
[2020-07-14] MEDS ORDERED: HEPARIN/NS 5000 UNIT/500ML 0 ML IR ONE (13:38)
[2020-07-14] MEDS ORDERED: LIDOCAINE 1%/EPINEPHRINE 1:100,000 VIAL (20 ML) INFILTRATI ONE (13:38)
[2020-07-14] MEDS ORDERED: SODIUM CHLORIDE IRRI 500 ML 500 ML IR ONE (14:01)
[2020-07-14] MEDS ORDERED: ceFAZolin/Water 2 GM/20 ML 2 GM/20 ML SYRINGE IV ONE (14:03)
[2020-07-14] MEDS: MIDAZOLAM 2 MG/2 ML INJ ONE ×2 (14:04→14:10)
[2020-07-14] MEDS: fentaNYL 100 MCG/2 ML INJ ONE ×2 (14:04→14:10)
[2020-07-14] MEDS ORDERED: fentaNYL 100 MCG/2 ML INJ ONE (14:15)
[2020-07-14] MEDS ORDERED: MIDAZOLAM 2 MG/2 ML INJ ONE (14:15)
--- NOTE | 2020-07-14 14:52 | Operative Report ---
Operative Report Operative Report: EXAM: Ultrasound and fluoroscopic guided abdominal fluid collection 16 Serbian drain placement CLINICAL INDICATION: Patient with ulcerative colitis, primary sclerosing cholangitis, status post proctocolectomy with recurrent mucocele which has been drained repeatedly in the past with severe mass effect symptoms who presented requesting drainage. Risks, benefits, and alternatives discussed. Since last visit, patient had biopsy performed at [facility] 2 weeks ago, with incomplete drainage. DATE: 07/15/2019 SOIL SAMPLER: SALVADOR ZAMUDIO MD MEDICATIONS: Conscious sedation using Versed and fentanyl was performed under guidance of radiologic nursing. Continuous cardiopulmonary monitoring was utilized. PROCEDURE: Following an explanation of the risks, benefits and alternatives; written informed consent was obtained. The patient was brought to the fluoroscopy suite and placed in the prone position on the fluoroscopy table. Ultrasound was performed of the left buttock portion of the abdominal pelvic fluid collection. After determining the appropriate site, the skin was infiltrated with lidocaine and under direct sonographic guidance an 18-gauge needle was passed into the fluid collection. J wire was then advanced through the needle and into the collection and positioned cephalad under fluoroscopic guidance. The needle was exchanged for multiple dilators that were used to serially dilate over the wire. A 16 Fr APD drain was advanced over the wire and metal stiffener. The metal stiffener and wire were removed. The pigtail was secured and aspirated until no more material could be aspirated. 2-0 Silk sutures were used to close the dermatotomy. Sterile bandage was applied. The patient tolerated the procedure well. There were no immediate postprocedural complications. FINDINGS: 1. Initial sonographic finding demonstrates a large fluid collection in the pelvic extending into the left buttocks and thigh region. There is a satisfactory window for ultrasound and fluoroscopy guided drainage. 2. Intermittent sonography demonstrates the 18 gauge needle was placed in the fluid collection in an appropriate position. 3. Wire is coiled in the abdomen and pelvic fluid collection under fluoroscopic guidance. 4. Fluoroscopy documents placement of a 16 Fr drain in the abdominal and pelvic fluid collection. 5. A total of approximately 4 L of dark gelatinous material and cloudy was aspirated through the drain and initial needle. IMPRESSION: Successful CT guided 16 Serbian drain placement in a large abdomen and pelvic mucocele Due to the cloudy appearance, this was sent off for culture and cytology again.
[2020-07-14 16:04] VITALS: BP 132/87
== END 2020-07-14 15:55 | disposition home or self-care (01) ==
LOC: ED 06:53
DX: R18.8 Other ascites (principal); L72.8 Other follicular cysts of the skin and subcutaneous tissue; I10 Essential (primary) hypertension; Z79.899 Other long term (current) drug therapy
CPT/HCPCS: 36415; 49405; 80048; 85025; 87116; 88112; 88305; 96374; 96375; 99284; C1729; J0690; J2250; J2270; J2405; J3010; J7040; 88342; J1644

== ENCOUNTER 2020-07-21 05:45 | Outpatient (CLI) | payer MEDICARE ==
[2020-07-21 07:31] LABS: Hematocrit 35.1 % (35.5-45.6); Mean Corpuscular HGB Conc 34 % (32-34); Mean Corpuscular Volume 88 fl (84-94); Platelet Count 394 K/mm3 (140-440)
[2020-07-21 07:39] LABS: INR 1.03 (0.87-1.13)
[2020-07-21 07:47] LABS: Partial Thromboplastin Time 40.6 Sec. (24.2-36.6)
[2020-07-21 07:53] VITALS: BP 139/94
[2020-07-21 07:57] LABS: BUN/Creatinine Ratio 21; Blood Urea Nitrogen 21 mg/dL (9-20); Calcium 9.3 mg/dL (8.4-10.2); Hemolysis Index 13
[2020-07-21] MEDS ORDERED: SODIUM CHLORIDE 0.9% 500 ML 500 ML IV SCH (08:00)
--- NOTE | 2020-07-21 09:43 | Cat Scan Report ---
CT abdomen pelvis w con INDICATION: MAIN. Pelvic abscess TECHNIQUE: All CT scans at this location are performed using CT dose reduction for ALARA by means of automated e xposure control. COMPARISON: 06/09/2020 FINDINGS: Lung bases are clear. Liver, gallbladder, spleen, pancreas, right kidney and adrenals are negative. L eft kidney is quite atrophic. Abdominal aorta is normal in size. No adenopathy. Pelvis Right lower quadrant ostomy. Previously identified inferior pelvic and perineal fluid collection is s maller than on previous exams but is now thick walled and loculated and contains some gas. Bladder is significantly displaced anteriorly and superiorly. There are numerous areas of postop change in the bowel but no evidence of bowel obstruction. No appreciable skeletal lesions. IMPRESSION: 1. Large inferior pelvic fluid collection is approximately the same size as on the postdrainage image s of 06/09/2020 but now appears more thick walled and loculated and contains some gas. The possibility of infection must be considered. Signer Name: Tony Damon MD Signed: 07/21/2020 9:38 AM Workstation Name: [id number]
[2020-07-21 10:46] LABS: Band Neutrophils # (Manual) 0.2 K/mm3; Total Cells Counted 100
[2020-07-21 10:47] LABS: Platelet Estimate Consistent w Auto; RBC Morphology Normal
--- NOTE | 2020-07-21 13:29 | Short Stay Summary ---
Short Stay Documentation Date of service: 07/21/20 Narrative H&P: 64-year-old male with past medical history of ulcerative colitis and PSC status post total proctocolectomy complicated by mucocele. Patient had a recent biopsy at [facility] of a portion of the mucocele and afterwards began to have low-grade fevers with enlargement of the mucocele which worsened On 07/14/2020 which brought the patient to the emergency room. He was drained at that time and the drainage site was sutured closed. He was started on antibioti cs and the mucus was cultured for bacteria. He continued to have low-grade fevers, and approximately 5 to 6 days later had spontaneous rupture of portion of the mucocele despite decompression 1 week earlier resulting in release of mucous. I ordered a CT scan which demonstrated no secondary collection, and a decompressed collection which contained gas and demonstrated communication with the skin. He was brought in for possible repeat drainage, but upon inspection, there is a 4 x 5 cm opening into the mucocele. The mucocele was expressed and all material was drained that could be drained. Vaseline gauze was placed at the periphery of the mucocele and then ABD pads were placed adjacent to that. The patient surgical oncologist was contacted and he recommended ostomy care and contacted [facility] for ostomy care. 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 Patient will follow up with medical oncology, surgical consult oncology, and wound care/ostomy care. This was all discussed in depth with the patient. - History Principal diagnosis: Mucocele Past Medical History: other (Listed in H&P) Past Surgical History: bowel surgery Social history: - Allergies and Medications Current Medications: Allergies No Known Allergies Allergy (Verified 07/14/20 07:16) Home Medications Medication Instructions Recorded Confirmed Last Taken Type Multivitamin [Multiple Vitamins] 1 each PO DAILY 10/06/17 07/21/20 07/20/20 History 1 tab ursodioL [Jose] 500 mg PO BIDWM 10/06/17 07/21/20 07/20/20 History 500 mg Cholecalciferol Vit D3 [Vitamin D3 500 units PO DAILY 02/05/19 07/21/20 07/20/20 History 1,000 UNIT TAB] 500 units [place]-3 Fatty Acids/Fish Oil [Fish 1 tab PO DAILY 09/24/19 07/21/20 07/20/20 History Oil] 1 tab traMADoL [Ultram 50 MG tab] 50 mg PO TID PRN #25 tablet 07/14/20 07/21/20 Unknown Rx Iron [Iron 18 MG TAB] 1 tab PO DAILY 07/21/20 07/21/20 07/20/20 History 1 tab Sulfamethoxazole/Trimethoprim 1 each PO BID 14 Days #28 tablet 07/21/20 Unknown Rx [Bactrim DS TAB] - Physical exam General appearance: no acute distress Lungs: Normal air movement Gastrointestinal: normal, other (Large decompressed cavity arising from the left buttocks with a 4 x 5 centimeter hole communicating with the mucous cavity. The skin associated with the collection is erythematous.) Extremities: normal temperature, normal color Neurological: Normal gait - Hospital course Hospital course: 64-year-old male with ulcerative colitis and PSC status post proctocolectomy complicated by recurrent mucocele which is now spontaneously ruptured and was previously possibly infected. Wound cultures have been negative. Currently, the cavity is communicating with the skin and there is erythema on the skin surface of the cavity. May have an element of cellulitis. Patient is now on Augmentin and Bactrim which should cover skin bacteria and cover MRSA. Patient will be following up with wound care per surgical oncology. They will manage the mucocutaneous fistula. Patient will need to follow-up with medical oncology and surgical oncology for further therapy. Discussed with patient that this may be palliative. He understands. No further need for drainages as there is now a mucocutaneous communication which will likely become permanent due to the high output. - Disposition Condition at discharge: Good Disposition: [id number] HOME UNDER HOME [facility] - Discharge Diagnoses (1) Abdominal fluid collection Status: Acute (2) Cyst of buttocks Status: Acute (3) Primary sclerosing cholangitis Status: Chronic (4) Ulcerative colitis Status: Acute Short Stay Discharge Plan Activity: advance as tolerated Weight Bearing Status: Weight Bear as Tolerated Diet: regular Wound: change dressing (at least daily), per wound nurse instructions Additional Instructions: [facility] wound nurse to set up appointment. Notify Dr Glover for temp greater than 100.5 , foul drainage, redness. Follow up with: PRIMARY CARE, [Primary Care Provider] - 7 Days
== END 2020-07-21 11:30 | disposition home health service (06) ==
LOC: CATHLABREC 05:45
PROVIDERS: ATTEND Radiology Diagnostic Radiology
DX: Z01.818 Encounter for other preprocedural examination (principal); R19.00 Intra-abdominal and pelvic swelling, mass and lump, unspecified site
CPT/HCPCS: 36415; 74177; 80048; 85007; 85025; 85610; 85730; J7040; Q9967

== ENCOUNTER 2021-04-06 07:05 | Day surgery (SDC) | payer MEDICARE ==
[2021-04-06] MEDS ORDERED: MIDAZOLAM 5 MG/5 ML INJ MDV IV NR (07:36)
[2021-04-06] MEDS ORDERED: fentaNYL 100 MCG/2 ML INJ IV NR (07:37)
[2021-04-06] MEDS ORDERED: SODIUM CHLORIDE 0.9% 500 ML 500 ML IV SCH (08:00)
[2021-04-06 08:20] LABS: Basophils # (Auto) 0.1 K/mm3 (0.0-0.1); Basophils % (Auto) 0.9 % (0.0-1.8); Eosinophils # (Auto) 0.2 K/mm3 (0.0-0.4); Hematocrit 40.9 % (35.5-45.6); Hemoglobin 13.5 gm/dl (11.8-15.2); Mean Corpuscular HGB Conc 33 % (32-34); Mean Corpuscular Volume 93 fl (84-94); Monocytes # (Auto) 0.6 K/mm3 (0.0-0.8); Monocytes % (Auto) 7.9 % (0.0-7.3); Platelet Count 271 K/mm3 (140-440); Red Cell Distribution Width 15.7 % (13.2-15.2)
[2021-04-06 08:31] LABS: INR 0.85 (0.87-1.13)
[2021-04-06 08:32] LABS: Partial Thromboplastin Time 37.9 Sec. (24.2-36.6)
--- NOTE | 2021-04-06 10:12 | Operative Report ---
Operative Report Operative Report: EXAM: CT guided abdominal fluid collection 16 South Sudanese drain placement CLINICAL INDICATION: Patient with ulcerative colitis, primary sclerosing cholangitis, status post proctocolectomy with recurrent mucocele which has been drained repeatedly in the past. 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 Now needs to maintain fistula patency. Risks, benefits, and alternatives discussed. DATE: 04/06/2021 CELL OPERATION SUPERVISOR: SALVADOR ZAMUDIO MD MEDICATIONS: Conscious sedation using Versed and fentanyl was performed under guidance of radiologic nursing. Continuous cardiopulmonary monitoring was utilized. PROCEDURE: Following an explanation of the risks, benefits and alternatives; written informed consent was obtained. The patient was brought to the CT suite and placed in the prone position on the CT table. Machine Fancy Stitcher CT was performed of the abdomen and pelvis. After determining the appropriate fistula site, the area was cleaned with Betadine. Wire was then introduced through the fistula site and CT was performed demonstrating that this was the correct fistula which communicated with the pelvic mucocele. The area was then enlarged with a hemostat opening up the fistula and serial dilatation was performed. A 16 Fr APD drain was advanced over the wire. CT scanning was performed confirming position of the drain in the center of the pelvic collection. The pigtail was secured and aspirated until no more material could be aspirated. After the drain was removed repeated dilatation of the fistula was performed with curved hemostats. Sterile bandage was applied. The patient tolerated the procedure well. There were no immediate postprocedural complications. FINDINGS: 1. Initial CT demonstrates a large fluid collection in the pelvis extending into the left buttocks. There is a satisfactory window for CT drainage. This CT was performed for localization purposes only. 2. Wire is coiled in the pelvic fluid collection. 3. CT documents placement of a 16 Fr drain in the pelvic fluid collection. 4. A total of approximately 90 mL of dark gelatinous material was aspirated through the drain and initial needle. IMPRESSION: Successful CT guided 16 South Sudanese drain placement in a pelvic mucocele with fistula tract dilatation.
[2021-04-06 11:06] VITALS: BP 104/70
--- NOTE | 2021-04-06 13:19 | Short Stay Summary ---
Short Stay Documentation Date of service: 04/06/21 Narrative H&P: 64-year-old male with history of ulcerative colitis status post proctocolectomy with end colostomy with residual mucocele and pseudomyxoma of the cyst who has been refractory to all surgical attempts to remove cyst and is palliated through CT-guided drainage of the mucocele. - History Principal diagnosis: Pseudomyxoma peritonei Past Medical History: cancer (history of colon cancer), liver disease (PSC) Past Surgical History: bowel surgery, Other (bladder surgery) Social history: - History Principal diagnosis: Pseudomyxoma peritonei - Allergies and Medications Current Medications: Allergies No Known Allergies Allergy (Verified 07/14/20 07:16) Home Medications Medication Instructions Recorded Confirmed Last Taken Type Multivitamin [Multiple Vitamins] 1 each PO DAILY 10/06/17 04/06/21 04/05/21 History 1 tab ursodioL [Jose] 500 mg PO BIDWM 10/06/17 04/06/21 04/05/21 History 500 mg Cholecalciferol Vit D3 [Vitamin D3 500 units PO DAILY 02/05/19 04/06/21 04/05/21 History 1,000 UNIT TAB] 500 units [place]-3 Fatty Acids/Fish Oil [Fish 1 tab PO DAILY 09/24/19 04/06/21 04/05/21 History Oil] 1 tab traMADoL [Ultram 50 MG tab] 50 mg PO TID PRN #25 tablet 07/14/20 04/06/21 01/16/20 Rx 50 mg Iron [Iron 18 MG TAB] 1 tab PO DAILY 07/21/20 04/06/21 04/05/21 History 1 tab Amoxicillin/Potassium Clav 1 each PO BID #20 tab 04/06/21 Unknown Rx [Augmentin 875-125 Tablet] traMADoL [Ultram 50 MG tab] 50 mg PO Q4HR PRN #25 tablet 04/06/21 Unknown Rx - Physical exam General appearance: no acute distress Lungs: Normal air movement Gastrointestinal: normal, other (Multiple fistulas at the level of the previous anus; anus has been surgically resected) - Brief post op/procedure progress note Date of procedure: 04/06/21 Pre-op diagnosis: Recurrent pseudomyxoma peritonei Post-op diagnosis: same Procedure: EXAM: CT guided abdominal fluid collection 16 Romansh drain placement Anesthesia: local (w/ conscious sedation) Surgeon: SALVADOR ZAMUDIO Estimated blood loss: minimal Condition: stable - Hospital course Hospital course: Patient tolerated the procedure well. No immediate postprocedural complications. - Disposition Condition at discharge: Good Disposition: 01 HOME / SELF CARE / HOMELESS - Discharge Diagnoses (1) Abdominal fluid collection Status: Acute (2) Ulcerative colitis Status: Acute (3) Primary sclerosing cholangitis Status: Chronic Short Stay Discharge Plan Activity: advance as tolerated Weight Bearing Status: Non-Weight Bearing Wound: keep clean and dry (Per wound care instructions; recommend reopening fistula every third day to maintain fistula patency) Follow up with: PRIMARY CARE, [Primary Care Provider] - 7 Days Prescriptions: Amoxicillin/Potassium Clav [Augmentin 875-125 Tablet] 1 each PO BID #20 tab traMADoL [Ultram 50 MG tab] 50 mg PO Q4HR PRN #25 tablet PRN Reason: Pain
--- NOTE | 2021-04-07 16:51 | Cat Scan Report ---
PLEASE SEE OPERATIVE REPORT ON 04-06-21 @[facility]
== END 2021-04-06 11:38 | disposition home or self-care (01) ==
LOC: CATHLABREC 07:05 → EDSTATUS 08:30 → CATHLABREC 11:38
PROVIDERS: ATTEND Radiology Diagnostic Radiology
DX: K51.80 Other ulcerative colitis without complications (principal); K83.09 Other cholangitis; R19.00 Intra-abdominal and pelvic swelling, mass and lump, unspecified site; R10.84 Generalized abdominal pain; I10 Essential (primary) hypertension; Z87.442 Personal history of urinary calculi; Z68.31 Body mass index [BMI] 31.0-31.9, adult; Z79.899 Other long term (current) drug therapy; Z85.038 Personal history of other malignant neoplasm of large intestine; Z90.5 Acquired absence of kidney; Z98.890 Other specified postprocedural states
CPT/HCPCS: 10160; 36415; 77012; 85025; 85610; 85730; 87116; C1769; J2250; J3010; J7040

== ENCOUNTER 2021-08-03 07:02 | Outpatient (CLI) | payer MEDICARE ==
[2021-08-03] MEDS ORDERED: fentaNYL 100 MCG/2 ML INJ IV ONE (07:42)
[2021-08-03] MEDS ORDERED: SODIUM CHLORIDE 0.9% 500 ML 500 ML IV SCH (08:00)
[2021-08-03] MEDS ORDERED: MIDAZOLAM 5 MG/5 ML INJ MDV IV NR (08:00)
[2021-08-03 08:03] LABS: Basophils % (Auto) 0.1 % (0.0-1.8); Eosinophils # (Auto) 0.2 K/mm3 (0.0-0.4); Eosinophils % (Auto) 2.9 % (0.0-4.3); Hematocrit 35.1 % (35.5-45.6); Hemoglobin 11.8 gm/dl (11.8-15.2); Lymphocytes # (Auto) 0.8 K/mm3 (1.2-5.4); Lymphocytes % (Auto) 9.6 % (13.4-35.0); Mean Corpuscular HGB Conc 34 % (32-34); Mean Corpuscular Volume 92 fl (84-94); Monocytes # (Auto) 0.5 K/mm3 (0.0-0.8); Monocytes % (Auto) 5.7 % (0.0-7.3); Platelet Count 283 K/mm3 (140-440); Red Blood Count 3.81 M/mm3 (3.65-5.03); Red Cell Distribution Width 16.6 % (13.2-15.2)
[2021-08-03 08:16] LABS: INR 0.93 (0.87-1.13)
[2021-08-03 08:17] LABS: Partial Thromboplastin Time 34.9 Sec. (24.2-36.6)
[2021-08-03] MEDS ORDERED: ceFAZolin/STERILE WATER 2 GM/20 ML SYRINGE IV NR (11:00)
--- NOTE | 2021-08-03 11:50 | Operative Report ---
Operative Report Operative Report: EXAM: CT guided abdominal fluid collection 16 Chinese drain placement CLINICAL INDICATION: Patient with ulcerative colitis, primary sclerosing cholangitis, status post proctocolectomy with recurrent mucocele which has been drained repeatedly in the past. 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 Now needs to maintain fistula patency. Has a second area of fluctuance on the buttocks. Risks, benefits, and alternatives discussed. DATE: 08/03/2021 AIR CONDITIONING SHEET METAL INSTALLER: SALVADOR ZAMUDIO MD MEDICATIONS: Conscious sedation using Versed and fentanyl was performed under guidance of radiologic nursing. Continuous cardiopulmonary monitoring was utilized. PROCEDURE: Following an explanation of the risks, benefits and alternatives; written informed consent was obtained. The patient was brought to the CT suite and placed in the prone position on the CT table. Utilities And Maintenance Supervisor CT was performed of the abdomen and pelvis. After determining the appropriate fistula site, the area was cleaned with Betadine. Wire was introduced through the fistula site near the cleft of the buttocks and CT was performed demonstrating that this was the correct fistula which communicated with the pelvic mucocele. The area was then enlarged with a hemostat opening up the fistula and serial dilatation was performed. A 16 Fr APD drain was advanced over the wire. CT scanning was performed confirming position of the drain in the center of the pelvic collection. The pigtail was se cured and aspirated until no more material could be aspirated. After the drain was removed repeated dilatation of the fistula was performed with curved hemostats. The area of fluctuance on the left buttocks corresponded to an area which on CT communicated with the main tract, but there was loculations allowing for focal filling of the buttocks region. There was a small area of spontaneous drainage. The area was anesthetized with lidocaine. Hemostat was introduced into the area and used to open the area 1 cm in length. Afterwards the hemostat was used to break up the loculations and the focal area of fluctuance in the left buttocks and the area of fluctuance was then decompressed. Sterile bandage was applied. The patient tolerated the procedure well. There were no immediate postprocedural complications. FINDINGS: 1. Initial CT demonstrates a large fluid collection in the pelvis extending into the buttocks. There is a satisfactory window for CT drainage. This CT was performed for localization purposes only. 2. Wire is coiled in the pelvic fluid collection. 3. CT documents placement of a 16 Fr drain in the pelvic fluid collection. 4. A total of approximately 100 mL of dark gelatinous material was aspirated through the drain and initial needle. IMPRESSION: Successful CT guided 16 Chinese drain placement in a pelvic mucocele with fistula tract dilatation.
--- NOTE | 2021-08-03 11:50 | Short Stay Summary ---
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 - History Principal diagnosis: Pseudomyxoma peritonei Past Medical History: cancer (history of colon cancer), liver disease (PSC) Past Surgical History: bowel surgery, Other (bladder surgery) Social history: - History Principal diagnosis: Pseudomyxoma peritonei H&P: obtained from office - Allergies and Medications Current Medications: Allergies No Known Allergies Allergy (Verified 07/14/20 07:16) Home Medications Medication Instructions Recorded Confirmed Last Taken Type Multivitamin [Multiple Vitamins] 1 each PO DAILY 10/06/17 08/03/21 08/02/21 History 1 tab ursodioL [Jose] 500 mg PO BIDWM 10/06/17 08/03/21 08/02/21 History 500 mg [place]-3 Fatty Acids/Fish Oil [Fish 1 tab PO DAILY 09/24/19 08/03/21 08/02/21 History Oil] 1 tab Iron [Iron 18 MG TAB] 1 tab PO BID 07/21/20 08/03/21 08/02/21 History 1 tab traMADoL [Ultram 50 MG tab] 50 mg PO Q4HR PRN #25 tablet 04/06/21 08/03/21 08/02/21 Rx 1 tab traMADoL [Ultram 50 MG tab] 50 mg PO TID PRN #40 tablet 05/11/21 08/02/21 Rx 1 tab Active Medications Cefazolin Sodium (Cefazolin/Sterile Water 2 Gm/20 Ml Syringe) 2 gm IV PREOP NR Stop: 08/03/21 20:00 Last Admin: 08/03/21 10:53 Dose: 2 gm Sodium Chloride (Nacl 0.9% 500 Ml) 500 mls @ 50 mls/hr IV DIRECT NIA Stop: 08/03/21 20:00 Midazolam HCl (Midazolam 5 Mg/5 Ml Inj Mdv) 5 mg IV ONCE NR Stop: 08/03/21 12:00 Last Admin: 08/03/21 11:20 Dose: 2 mg - Physical exam General appearance: no acute distress Lungs: Normal air movement Heart: Regular rate Gastrointestinal: other (Mucocele with fluctuance of the buttocks region) Extremities: normal temperature, normal color - Brief post op/procedure progress note Date of procedure: 08/03/21 Pre-op diagnosis: Pseudomyxoma peritonei Post-op diagnosis: same Procedure: CT-guided drainage of a pelvic fluid collection with a 16-Macedonian APD drain Anesthesia: local (With conscious sedation) Surgeon: SALVADOR ZAMUDIO Estimated blood loss: minimal Condition: stable - Hospital course Hospital course: Patient tolerated procedure well. No immediate postprocedural complications. Instructed to maintain mucocutaneous fistula to allow for drainage - Disposition Condition at discharge: Good Disposition: 01 HOME / SELF CARE / HOMELESS - Discharge Diagnoses (1) Abdominal fluid collection Status: Acute (2) Ulcerative colitis Status: Acute (3) Primary sclerosing cholangitis Status: Chronic Short Stay Discharge Plan Activity: advance as tolerated Weight Bearing Status: Weight Bear as Tolerated Diet: regular Wound: keep clean and dry (Maintain mucocutaneous fistula, discussed with in depth) Additional Instructions: Call Dr Felix office for follow up appointment. Follow up with: PRIMARY CARE, [Primary Care Provider] - 7 Days Prescriptions: Amoxicillin/K Clav Tab [Augmentin 875 mg] 1 tab PO BID #20 tab traMADoL [Ultram 50 MG tab] 50 mg PO Q4HR PRN #40 tablet PRN Reason: Pain
[2021-08-03 13:09] VITALS: BP 142/80
--- NOTE | 2021-08-03 16:00 | Cat Scan Report ---
CT guidance was used for a pelvic abscess drainage procedure performed by Dr. Benigno Glover. See his sep arate report. All CT scans at this location are performed using CT dose reduction for ALARA by means of automated e xposure control. Signer Name: Mina Holt MD Signed: 08/03/2021 3:55 PM Workstation Name: [id number]
[2021-08-05] MEDS ORDERED: LIDOCAINE (2%) 20 MG/1 ML VIAL 50 ML MDV INFILTRATI ONE (11:54)
== END 2021-08-03 13:40 | disposition home or self-care (01) ==
LOC: CATHLABREC 07:02
PROVIDERS: ATTEND Radiology Diagnostic Radiology
DX: K51.90 Ulcerative colitis, unspecified, without complications (principal); R18.8 Other ascites; K83.01 Primary sclerosing cholangitis; I10 Essential (primary) hypertension; Z98.890 Other specified postprocedural states; Z79.899 Other long term (current) drug therapy; Z85.038 Personal history of other malignant neoplasm of large intestine; Z87.442 Personal history of urinary calculi; Z90.5 Acquired absence of kidney; Z80.0 Family history of malignant neoplasm of digestive organs
CPT/HCPCS: 10160; 36415; 77012; 85025; 85610; 85730; 87076; 87116; 87186; 96374; 96375; J2250; J3010; J3490; J7040

== ENCOUNTER 2021-09-21 06:38 | Outpatient (CLI) | payer MEDICARE ==
[2021-09-21] MEDS ORDERED: fentaNYL 100 MCG/2 ML INJ IV ONE (07:11)
[2021-09-21 07:29] LABS: Basophils # (Auto) 0.1 K/mm3 (0.0-0.1); Basophils % (Auto) 0.8 % (0.0-1.8); Eosinophils # (Auto) 0.2 K/mm3 (0.0-0.4); Hematocrit 33.3 % (35.5-45.6); Hemoglobin 11.7 gm/dl (11.8-15.2); Lymphocytes # (Auto) 0.9 K/mm3 (1.2-5.4); Lymphocytes % (Auto) 9.2 % (13.4-35.0); Mean Corpuscular HGB Conc 35 % (32-34); Mean Corpuscular Volume 92 fl (84-94); Monocytes # (Auto) 0.5 K/mm3 (0.0-0.8); Monocytes % (Auto) 4.8 % (0.0-7.3); Platelet Count 300 K/mm3 (140-440); Red Blood Count 3.62 M/mm3 (3.65-5.03); Red Cell Distribution Width 16.2 % (13.2-15.2)
[2021-09-21 07:40] LABS: INR 1.08 (0.87-1.13)
[2021-09-21 07:41] LABS: Partial Thromboplastin Time 38.9 Sec. (24.2-36.6)
[2021-09-21] MEDS ORDERED: MIDAZOLAM 5 MG/5 ML INJ MDV IV NR (08:00)
[2021-09-21] MEDS ORDERED: SODIUM CHLORIDE 0.9% 500 ML 500 ML IV SCH (08:00)
[2021-09-21] MEDS ORDERED: LIDOCAINE 2%/EPINEPHRINE 1:200,000 VIAL (20 ML) INFILTRATI ONE (08:27)
[2021-09-21] MEDS ORDERED: ceFAZolin/Water 2 GM/20 ML 2 GM/20 ML SYRINGE IV ONE (09:55)
[2021-09-21] MEDS ORDERED: SILVER NITRATE APPLICATOR 1 EA TP ONE (11:17)
--- NOTE | 2021-09-21 11:56 | Operative Report ---
Operative Report Operative Report: EXAM: CT guided abdominal fluid collection 16 Martiniquais drain placement CLINICAL INDICATION: Patient with ulcerative colitis, primary sclerosing cholangitis, status post proctocolectomy with recurrent mucocele which has been drained repeatedly in the past. 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 Now needs to maintain fistula patency. Since prior procedure, has recurrence of the second area of fluctuance on the buttocks. Risks, benefits, and alternatives discussed. DATE: 09/21/2021 DIGITAL CONTENT PRODUCER: SALVADOR ZAMUDIO MD MEDICATIONS: Conscious sedation using Versed and fentanyl was performed under guidance of radiologic nursing. Continuous cardiopulmonary monitoring was utilized. PROCEDURE: Following an explanation of the risks, benefits and alternatives; written informed consent was obtained. The patient was brought to the CT suite and placed in the prone position on the CT table. Pier Master CT was performed of the abdomen and pelvis. After determining the appropriate fistula site, the area was cleaned with Betadine. Wire was introduced through the fistula site near the cleft of the buttocks and CT was performed demonstrating that this was the correct fistula which communicated with the pelvic mucocele. The area was then enlarged with a hemostat opening up the fistula and serial dilatation was performed. A 16 Fr APD drain was advanced over the wire. CT scanning was performed confirming position of the drain in the center of the pelvic collection. The pigtail was secured and aspirated until no more material could be aspirated. After the drain was removed repeated dilatation of the fistula was performed with curved hemostats. The are was then flushed with 60 mL of betadine twice for a 10 min dwell and 20 minute dwell for a total of 30 minutes. The area of fluctuance on the left buttocks corresponded to an area which on CT communicated with the main tract, but there was loculations allowing for focal filling of the buttocks region. There was two small area of spontaneous drainage. The area was anesthetized with lidocaine. Hemostat was introduced into the area and used to open the area 1 cm in length. Afterwards the hemostat was used to break up the loculations and the focal area of fluctuance in the left buttocks and the area of fluctuance was then decompressed. Betadine was passed into this area The focal area of granulation tissue on the exterior of the buttocks was then treated with silver nitrate to prevent oozing. Afterwards, this was cleaned with betadine. Sterile bandage was applied. The patient tolerated the procedure well. There were no immediate postprocedural complications. FINDINGS: 1. Initial CT demonstrates a large fluid collection in the pelvis extending into the buttocks. There is a satisfactory window for CT drainage. This CT was performed for localization purposes only. 2. Wire is coiled in the pelvic fluid collection. 3. CT documents placement of a 16 Fr drain in the pelvic fluid collection. 4. A total of approximately 50 mL of dark gelatinous material was aspirated through the drain and initial needle. IMPRESSION: Successful CT guided 16 Martiniquais drain placement in a pelvic mucocele with fistula tract dilatation.
--- NOTE | 2021-09-21 12:05 | Short Stay Summary ---
Short Stay Documentation Date of service: 09/21/21 Narrative H&P: 64-year-old male with history of ulcerative colitis status post proctocolectomy with end colostomy with residual mucocele and pseudomyxoma of the cyst who has been refractory to all surgical attempts to remove cyst and is palliated through CT-guided drainage of the mucocele. - History Principal diagnosis: Pseudomyxoma peritonei Past Medical History: cancer (history of colon cancer), liver disease (PSC) Past Surgical History: bowel surgery, Other (bladder surgery) Social history: - History Principal diagnosis: Pseudomyxoma peritonei H&P: obtained from office - Allergies and Medications Current Medications: Allergies No Known Allergies Allergy (Verified 07/14/20 07:16) Home Medications Medication Instructions Recorded Confirmed Last Taken Type Multivitamin [Multiple Vitamins] 1 each PO DAILY 10/06/17 09/21/21 09/20/21 History 1 tab ursodioL [Jose] 500 mg PO BIDWM 10/06/17 09/21/21 09/20/21 History 500 mg [place]-3 Fatty Acids/Fish Oil [Fish 1 tab PO DAILY 09/24/19 09/21/21 09/20/21 History Oil] 1 tab Iron [Iron 18 MG TAB] 1 tab PO BID 07/21/20 09/21/21 09/20/21 History 1 tab traMADoL [Ultram 50 MG tab] 50 mg PO TID PRN #40 tablet 05/11/21 09/21/21 09/19/21 Rx 50 mg Amoxicillin/K Clav Tab [Augmentin 1 tab PO BID #20 tab 08/03/21 09/21/21 09/17/21 Rx 875 mg] 1 tab Active Medications Sodium Chloride (Nacl 0.9% 500 Ml) 500 mls @ 50 mls/hr IV DIRECT NIA Stop: 09/21/21 20:00 - Physical exam General appearance: no acute distress HEENT: EOMI Lungs: Normal air movement Heart: Regular rate Gastrointestinal: other (buttocks drainage from mucocele) - Brief post op/procedure progress note Date of procedure: 09/24/21 Pre-op diagnosis: Pseudomyoma perionei Post-op diagnosis: same Procedure: CT guided drainage of the pelvic fluid collection Anesthesia: local (w/ conscious sedation) Surgeon: SALVADOR ZAMUDIO Estimated blood loss: minimal Condition: stable - Hospital course Hospital course: Tolerated procedure well. No immediate post procedural complications. - Disposition Condition at discharge: Stable Disposition: 01 HOME / SELF CARE / HOMELESS - Discharge Diagnoses (1) Abdominal fluid collection Status: Acute (2) Ulcerative colitis Status: Acute (3) Primary sclerosing cholangitis Status: Chronic Short Stay Discharge Plan Activity: advance as tolerated Diet: regular Wound: keep clean and dry Follow up with: PRIMARY CAREMD [Primary Care Provider] - 7 Days
[2021-09-21 12:49] VITALS: BP 124/82
--- NOTE | 2021-09-21 14:36 | Cat Scan Report ---
CT drain cyst/abscess HISTORY: Pelvic abscess. Please note this examination was performed by Dr. Glover of interventional radiology. Please refer to h is report for details. Signer Name: Mark Reynolds Jr, MD Signed: 09/21/2021 2:32 PM Workstation Name: [id number]
== END 2021-09-21 13:41 | disposition home or self-care (01) ==
LOC: CATHLABREC 06:38
PROVIDERS: ATTEND Radiology Diagnostic Radiology
DX: R19.00 Intra-abdominal and pelvic swelling, mass and lump, unspecified site (principal); K51.90 Ulcerative colitis, unspecified, without complications; K83.09 Other cholangitis; I10 Essential (primary) hypertension; Z85.038 Personal history of other malignant neoplasm of large intestine; Z79.899 Other long term (current) drug therapy; Z87.442 Personal history of urinary calculi; Z90.5 Acquired absence of kidney; Z98.890 Other specified postprocedural states; Z80.0 Family history of malignant neoplasm of digestive organs; Z90.49 Acquired absence of other specified parts of digestive tract
CPT/HCPCS: 10160; 36415; 77012; 85025; 85610; 85730; 87076; 87116; 87186; 88112; 88305; J0690; J2250; J3010; J7040; J3490

== ENCOUNTER 2021-10-05 06:40 | Outpatient (CLI) | payer MEDICARE ==
[2021-10-05 07:30] LABS: Basophils # (Auto) 0.1 K/mm3 (0.0-0.1); Basophils % (Auto) 0.7 % (0.0-1.8); Eosinophils # (Auto) 0.1 K/mm3 (0.0-0.4); Hematocrit 36.7 % (35.5-45.6); Hemoglobin 11.9 gm/dl (11.8-15.2); Lymphocytes # (Auto) 0.7 K/mm3 (1.2-5.4); Lymphocytes % (Auto) 5.1 % (13.4-35.0); Mean Corpuscular HGB Conc 33 % (32-34); Mean Corpuscular Volume 93 fl (84-94); Monocytes # (Auto) 0.8 K/mm3 (0.0-0.8); Monocytes % (Auto) 6.4 % (0.0-7.3); Platelet Count 363 K/mm3 (140-440); Red Blood Count 3.94 M/mm3 (3.65-5.03); Red Cell Distribution Width 14.7 % (13.2-15.2)
[2021-10-05 07:40] LABS: INR 0.97 (0.87-1.13)
[2021-10-05 07:41] LABS: Partial Thromboplastin Time 38.6 Sec. (24.2-36.6)
[2021-10-05] MEDS ORDERED: fentaNYL 100 MCG/2 ML INJ IV NR (09:00)
[2021-10-05] MEDS ORDERED: MIDAZOLAM 5 MG/5 ML INJ MDV IV NR (09:00)
[2021-10-05] MEDS ORDERED: SODIUM CHLORIDE 0.9% 500 ML 0 ML ONE (09:17)
[2021-10-05] MEDS ORDERED: LIDOCAINE 2%/EPINEPHRINE 1:200,000 VIAL (20 ML) INFILTRATI ONE (09:27)
[2021-10-05] MEDS ORDERED: SILVER NITRATE APPLICATOR 1 EA TP NR (11:00)
--- NOTE | 2021-10-05 11:28 | Short Stay Summary ---
Short Stay Documentation Date of service: 10/05/21 Narrative H&P: 64-year-old male with history of ulcerative colitis status post proctocolectomy with end colostomy with residual mucocele and pseudomyxoma of the cyst who has been refractory to all surgical attempts to remove cyst and is palliated through CT-guided drainage of the mucocele. - History Principal diagnosis: Pseudomyxoma peritonei Past Medical History: cancer (history of colon cancer), liver disease (PSC) Past Surgical History: bowel surgery, Other (bladder surgery) Social history: - History Principal diagnosis: Pseudomyxoma peritonei H&P: obtained from office - Allergies and Medications Current Medications: Allergies No Known Allergies Allergy (Verified 07/14/20 07:16) Home Medications Medication Instructions Recorded Confirmed Last Taken Type Multivitamin [Multiple Vitamins] 1 each PO DAILY 10/06/17 10/05/21 10/04/21 History ursodioL [Jose] 500 mg PO BIDWM 10/06/17 10/05/21 10/04/21 History [place]-3 Fatty Acids/Fish Oil [Fish 1 tab PO DAILY 09/24/19 10/05/21 10/04/21 H istory Oil] Iron [Iron 18 MG TAB] 1 tab PO BID 07/21/20 10/05/21 10/04/21 History Amoxicillin/K Clav Tab [Augmentin 1 tab PO BID #20 tab 10/05/21 Unknown Rx 875MG TAB] traMADoL [Ultram 50 MG tab] 50 mg PO TID PRN #40 tablet 10/05/21 Unknown Rx Active Medications Fentanyl (Fentanyl 100 Mcg/2 Ml Inj) 100 mcg IV ONCE NR Stop: 10/05/21 13:00 Midazolam HCl (Midazolam 5 Mg/5 Ml Inj Mdv) 5 mg IV ONCE NR Stop: 10/05/21 13:00 Silver Nitrate (Silver Nitrate Applicator 1 Ea) 10 each TP ONCE NR Stop: 10/05/21 16:00 - Physical exam General appearance: mild distress (buttock discomfort) Lungs: Normal air movement Heart: Regular rate Gastrointestinal: normal Rectal Exam: other (buttock discomfort at exophytic mass/mucocele) - Brief post op/procedure progress note Date of procedure: 10/05/21 Pre-op diagnosis: pseudomyxoma peritonei Post-op diagnosis: same Procedure: CT guided drainage of the pelvic fluid collection Anesthesia: local (w/ conscious sedation) Surgeon: SALVADOR ZAMUDIO Estimated blood loss: minimal Condition: stable - Hospital course Hospital course: Tolerated procedure well. No immediate post procedural complications. - Disposition Condition at discharge: Stable Disposition: 01 HOME / SELF CARE / HOMELESS - Discharge Diagnoses (1) Abdominal fluid collection Status: Acute (2) Ulcerative colitis Status: Acute (3) Primary sclerosing cholangitis Status: Chronic Short Stay Discharge Plan Activity: advance as tolerated Weight Bearing Status: Weight Bear as Tolerated Diet: regular Wound: keep clean and dry Follow up with: PRIMARY CARE, [Primary Care Provider] - 7 Days Prescriptions: Amoxicillin/K Clav Tab [Augmentin 875MG TAB] 1 tab PO BID #20 tab traMADoL [Ultram 50 MG tab] 50 mg PO TID PRN #40 tablet PRN Reason: Pain
--- NOTE | 2021-10-05 11:31 | Operative Report ---
Operative Report Operative Report: EXAM: CT guided abdominal fluid collection 16 Barb[place] drain placement CLINICAL INDICATION: Patient with ulcerative colitis, primary sclerosing cholangitis, status post proctocolectomy with recurrent mucocele which has been drained repeatedly in the past. 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 Now needs to maintain fistula patency. Since prior procedure, again has recurrence of the second area of fluctuance on the buttocks. Risks, benefits, and alternatives discussed. DATE: 10/05/2021 REGISTERED PHLEBOTOMIST PART TIME: SALVADOR ZAMUDIO MD MEDICATIONS: Conscious sedation using Versed and fentanyl was performed under guidance of radiologic nursing. Continuous cardiopulmonary monitoring was utilized. PROCEDURE: Following an explanation of the risks, benefits and alternatives; written informed consent was obtained. The patient was brought to the CT suite and placed in the prone position on the CT table. Lotus Notes Administrator CT was performed of the abdomen and pelvis. After determining the appropriate fistula site, the area was cleaned with Betadine. Wire was introduced through the fistula site near the cleft of the buttocks and CT was performed demonstrating that this was the correct fistula which communicated with the pelvic mucocele. The area was then enlarged with a hemostat opening up the fistula and serial dilatation was performed. A 16 Fr APD drain was advanced over the wire. CT scanning was performed confirming position of the drain in the center of the pelvic collection. The pigtail was secured and aspirated until no more material could be aspirated. After the drain was removed repeated dilatation of the fistula was performed with curved hemostats. The are was then flushed with 60 mL of betadine twice for a 50 minute dwell. The area of fluctuance on the left buttocks corresponded to an area which on CT communicated with the main tract, but there was loculations allowing for focal filling of the buttocks region. There was two small area of drainage are partially closed. The area was anesthetized with lidocaine. Hemostat was in troduced into the area and used to open the area 1 cm in length. Afterwards the hemostat was used to break up the loculations and the focal area of fluctuance in the left buttocks and the area of fluctuance was then decompressed. A large amount of mucus was removed. Betadine was passed into this area for a 30 minute dwell. The focal area of granulation tissue on the exterior of the buttocks was then treated with silver nitrate to prevent oozing. Afterwards, this was cleaned with betadine. Sterile bandage was applied. The patient tolerated the procedure well. There were no immediate postprocedural complications. FINDINGS: 1. Initial CT demonstrates a large fluid collection in the pelvis extending into the buttocks. There is a satisfactory window for CT drainage. This CT was performed for localization purposes only. 2. Wire is coiled in the pelvic fluid collection. 3. CT documents placement of a 16 Fr drain in the pelvic fluid collection. 4. A total of approximately 50 mL of dark gelatinous material was aspirated through the drain and initial needle. IMPRESSION: Successful CT guided 16 Barbadian drain placement in a pelvic mucocele with fistula tract dilatation.
[2021-10-05] MEDS ORDERED: fentaNYL 100 MCG/2 ML INJ IV ONE (11:42)
[2021-10-05 12:10] VITALS: BP 115/69
--- NOTE | 2021-10-05 13:24 | Cat Scan Report ---
CT drain cyst/abscess This examination was performed by Dr. Glover of interventional radiology. Please refer to his report in [employer]. Signer Name: Mark Reynolds Jr, MD Signed: 10/05/2021 1:20 PM Workstation Name: [id number]
== END 2021-10-05 12:55 | disposition home or self-care (01) ==
LOC: CATHLABREC 06:40
PROVIDERS: ATTEND Radiology Diagnostic Radiology
DX: R19.00 Intra-abdominal and pelvic swelling, mass and lump, unspecified site (principal); K51.90 Ulcerative colitis, unspecified, without complications; I10 Essential (primary) hypertension; Z79.899 Other long term (current) drug therapy; Z85.038 Personal history of other malignant neoplasm of large intestine; Z87.442 Personal history of urinary calculi; Z98.890 Other specified postprocedural states; Z80.0 Family history of malignant neoplasm of digestive organs; Z90.5 Acquired absence of kidney
CPT/HCPCS: 10160; 36415; 77012; 85025; 85610; 85730; 88112; 88305; J2250; J3010; J3490; J7040

== ENCOUNTER 2021-10-12 06:32 | Outpatient (CLI) | payer MEDICARE ==
[2021-10-12] MEDS ORDERED: fentaNYL 100 MCG/2 ML INJ IV ONE (07:06)
[2021-10-12] MEDS ORDERED: SILVER NITRATE APPLICATOR 1 EA TP ONE ×3 (07:22→11:40)
[2021-10-12 07:25] LABS: Hematocrit 33.9 % (35.5-45.6); Hemoglobin 11.1 gm/dl (11.8-15.2); Mean Corpuscular HGB Conc 33 % (32-34); Mean Corpuscular Volume 93 fl (84-94); Platelet Count 373 K/mm3 (140-440); Red Blood Count 3.66 M/mm3 (3.65-5.03); Red Cell Distribution Width 14.8 % (13.2-15.2)
[2021-10-12 07:35] LABS: INR 0.92 (0.87-1.13)
[2021-10-12 07:36] LABS: Partial Thromboplastin Time 33.6 Sec. (24.2-36.6)
[2021-10-12] MEDS ORDERED: BENZOCAINE 20% TOP SPRAY 0.5 ML UNIT DOSE MM ONE (07:59)
[2021-10-12] MEDS ORDERED: MIDAZOLAM 5 MG/5 ML INJ MDV IV NR (08:00)
[2021-10-12 09:52] LABS: Band Neutrophils # (Manual) 0.8 K/mm3; Basophils % (Manual) 0 % (0.0-1.8); Eosinophils % (Manual) 0 % (0.0-4.3); Platelet Estimate Consistent w Auto; RBC Morphology Normal; Total Cells Counted 100
[2021-10-12] MEDS ORDERED: SODIUM CHLORIDE 0.9% 1000 ML 1,000 ML IV ONE (10:12)
--- NOTE | 2021-10-12 12:12 | Short Stay Summary ---
Short Stay Documentation Date of service: 10/12/21 Narrative H&P: 64-year-old male with history of ulcerative colitis status post proctocolectomy with end colostomy with residual mucocele and pseudomyxoma of the cyst who has been refractory to all surgical attempts to remove cyst and is palliated through CT-guided drainage of the mucocele. - History Principal diagnosis: Pseudomyxoma peritonei Past Medical History: cancer (history of colon cancer), liver disease (PSC) Past Surgical History: bowel surgery, Other (bladder surgery) Social history: - History Principal diagnosis: pseudomyoxoma peritonei - Allergies and Medications Current Medications: Allergies No Known Allergies Allergy (Verified 07/14/20 07:16) Home Medications Medication Instructions Recorded Confirmed Last Taken Type Multivitamin [Multiple Vitamins] 1 each PO DAILY 10/06/17 10/12/21 10/11/21 History ursodioL [Jose] 500 mg PO BIDWM 10/06/17 10/12/21 10/11/21 History [place]-3 Fatty Acids/Fish Oil [Fish 1 tab PO DAILY 09/24/19 10/12/21 10/11/21 History Oil] Iron [Iron 18 MG TAB] 1 tab PO BID 07/21/20 10/12/21 10/11/21 History Amoxicillin/K Clav Tab [Augmentin 1 tab PO BID #20 tab 10/05/21 10/12/21 10/11/21 Rx 875MG TAB] traMADoL [Ultram 50 MG tab] 50 mg PO TID PRN #40 tablet 10/05/21 10/12/21 10/11/21 Rx - Physical exam General appearance: no acute distress Lungs: Normal air movement Heart: Regular rate Gastrointestinal: other (buttocks discomfort) Extremities: normal temperature, normal color - Brief post op/procedure progress note Date of procedure: 10/12/21 Pre-op diagnosis: Recurrent mucocele Post-op diagnosis: same Procedure: CT guided drainage Anesthesia: local (w/ conscious sedation) Surgeon: SALVADOR ZAMUDIO Estimated blood loss: minimal Condition: stable - Hospital course Hospital course: Tolerated procedure well. No immediate post procedural issues. - Disposition Condition at discharge: Stable Disposition: 01 HOME / SELF CARE / HOMELESS - Discharge Diagnoses (1) Abdominal fluid collection Status: Acute (2) Ulcerative colitis Status: Acute (3) Primary sclerosing cholangitis Status: Chronic Short Stay Discharge Plan Activity: advance as tolerated Weight Bearing Status: Weight Bear as Tolerated Diet: regular Wound: keep clean and dry Follow up with: PRIMARY CARE, [Primary Care Provider] - 7 Days
--- NOTE | 2021-10-12 12:14 | Operative Report ---
Operative Report Operative Report: EXAM: CT guided abdominal fluid collection 16 Estonian drain placement CLINICAL INDICATION: Patient with ulcerative colitis, primary sclerosing cholangitis, status post proctocolectomy with recurrent mucocele which has been drained repeatedly in the past. 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 Now needs to maintain fistula patency. Since prior procedure, again has recurrence of the second area of fluctuance on the buttocks. Risks, benefits, and alternatives discussed. DATE: 10/12/2021 SCHOOL DIRECTOR: SALVADOR ZAMUDIO MD MEDICATIONS: Conscious sedation using Versed and fentanyl was performed under guidance of radiologic nursing. Continuous cardiopulmonary monitoring was utilized. PROCEDURE: Following an explanation of the risks, benefits and alternatives; written informed consent was obtained. The patient was brought to the CT suite and placed in the prone position on the CT table. Client Finance Analyst CT was performed of the abdomen and pelvis. After determining the appropriate fistula site, the area was cleaned with Betadine. Wire was introduced through the fistula site near the cleft of the buttocks and CT was performed demonstrating that this was the correct fistula which communicated with the pelvic mucocele. The area was then enlarged with a hemostat opening up the fistula and serial dilatation was performed. A 16 Fr APD drain was advanced over the wire. CT scanning was performed confirming position of the drain in the center of the pelvic collection. The pigtail was secured and aspirated until no more material could be aspirated. After the drain was removed repeated dilatation of the fistula was performed with curved hemostats. The are was then flushed with 60 mL of betadine twice for a 45 minute dwell. The area of fluctuance on the left buttocks corresponded to an area which on CT communicated with the main tract, but there was loculations allowing for focal filling of the buttocks region. The two areas previously opened remained opened, with minimal drainage. The areas were dwelled with betadine for 40 min utes and silver nitrate was applied as there was moderate bleeding from the areas. Part of the focal filling is firm and does not feel like mucus, but rather a combination of mucus and ?tumor. I put a moderate amount of pressure on it to see if it would drain into the adjacent openings, but there was no drainage. The large focal area of granulation tissue on the exterior of the buttocks was then treated with silver nitrate to prevent oozing. Afterwards, this was cleaned with betadine. Sterile bandage was applied. The patient tolerated the procedure well. There were no immediate postprocedural complications. FINDINGS: 1. Initial CT demonstrates a large fluid collection in the pelvis extending into the buttocks. There is a satisfactory window for CT drainage. This CT was performed for localization purposes only. 2. Wire is coiled in the pelvic fluid collection. 3. CT documents placement of a 16 Fr drain in the pelvic fluid collection. 4. A total of approximately 50 mL of dark gelatinous material was aspirated through the drain and initial needle. IMPRESSION: Successful CT guided 16 Estonian drain placement in a pelvic mucocele with fistula tract dilatation.
[2021-10-12] MEDS ORDERED: HYDROcodone/ACETAMINOPHEN 5-325 MG TAB PO ONE (12:25)
[2021-10-12] MEDS ORDERED: HYDROcodone/ACETAMINOPHEN 5-325 MG TAB ONE (12:28)
[2021-10-12 13:01] VITALS: BP 117/84
--- NOTE | 2021-10-12 14:35 | Cat Scan Report ---
CT drain cyst/abscess This procedure was performed by Dr. Glover of interventional radiology. Please refer to his report in [employer]ila. Signer Name: Mina Holt MD Signed: 10/12/2021 2:31 PM Workstation Name: [id number]
== END 2021-10-12 13:30 | disposition home or self-care (01) ==
LOC: CATHLABREC 06:32
PROVIDERS: ATTEND Radiology Diagnostic Radiology
DX: R19.00 Intra-abdominal and pelvic swelling, mass and lump, unspecified site (principal); I10 Essential (primary) hypertension; K51.90 Ulcerative colitis, unspecified, without complications; Z85.038 Personal history of other malignant neoplasm of large intestine; Z79.899 Other long term (current) drug therapy; Z98.890 Other specified postprocedural states; Z87.442 Personal history of urinary calculi; Z90.5 Acquired absence of kidney; Z80.0 Family history of malignant neoplasm of digestive organs
CPT/HCPCS: 10160; 36415; 77012; 85007; 85025; 85610; 85730; J2250; J3010; J7030

== ENCOUNTER 2021-10-26 06:32 | Outpatient (CLI) | payer MEDICARE ==
[2021-10-26] MEDS ORDERED: fentaNYL 100 MCG/2 ML INJ IV ONE (07:03)
[2021-10-26] MEDS ORDERED: SILVER NITRATE APPLICATOR 1 EA TP NR (07:04)
[2021-10-26 07:34] LABS: Basophils # (Auto) 0.1 K/mm3 (0.0-0.1); Basophils % (Auto) 0.4 % (0.0-1.8); Eosinophils # (Auto) 0.1 K/mm3 (0.0-0.4); Eosinophils % (Auto) 0.5 % (0.0-4.3); Hematocrit 33.6 % (35.5-45.6); Hemoglobin 10.8 gm/dl (11.8-15.2); Lymphocytes # (Auto) 0.6 K/mm3 (1.2-5.4); Lymphocytes % (Auto) 4.6 % (13.4-35.0); Mean Corpuscular HGB Conc 32 % (32-34); Mean Corpuscular Volume 95 fl (84-94); Monocytes # (Auto) 0.8 K/mm3 (0.0-0.8); Monocytes % (Auto) 5.7 % (0.0-7.3); Platelet Count 386 K/mm3 (140-440); Red Blood Count 3.54 M/mm3 (3.65-5.03); Red Cell Distribution Width 14.8 % (13.2-15.2)
[2021-10-26 07:38] LABS: INR 0.87 (0.87-1.13)
[2021-10-26 07:39] LABS: Partial Thromboplastin Time 37.1 Sec. (24.2-36.6)
[2021-10-26] MEDS ORDERED: MIDAZOLAM 5 MG/5 ML INJ MDV IV NR (08:00)
[2021-10-26] MEDS ORDERED: SILVER NITRATE APPLICATOR 1 EA TP ONE ×2 (09:05→11:17)
[2021-10-26] MEDS ORDERED: LIDOCAINE 1%/EPINEPHRINE 1:100,000 VIAL (20 ML) INFILTRATI ONE (09:21)
[2021-10-26] MEDS ORDERED: LIDOCAINE 1%/EPINEPHRINE 1:100,000 VIAL (20 ML) INFILTRATI NR (09:30)
[2021-10-26 13:16] VITALS: BP 117/65
--- NOTE | 2021-10-26 14:00 | Cat Scan Report ---
CT drain cyst/abscess This examination was performed by Dr. Glover of interventional radiology. Please refer to Dr. Glover's re port. Signer Name: Mark Reynolds Jr, MD Signed: 10/26/2021 1:56 PM Workstation Name: [id number]
--- NOTE | 2021-10-26 15:11 | Short Stay Summary ---
Short Stay Documentation Date of service: 10/26/21 Narrative H&P: 64-year-old male with history of ulcerative colitis status post proctocolectomy with end colostomy with residual mucocele and pseudomyxoma of the cyst who has been refractory to all surgical attempts to remove cyst and is palliated through CT-guided drainage of the mucocele. - History Principal diagnosis: Pseudomyxoma peritonei Past Medical History: cancer (history of colon cancer), liver disease (PSC) Past Surgical History: bowel surgery, Other (bladder surgery) Social history: - History H&P: obtained from office - Allergies and Medications Current Medications: Allergies No Known Allergies Allergy (Verified 07/14/20 07:16) Home Medications Medication Instructions Recorded Confirmed Last Taken Type Multivitamin [Multiple Vitamins] 1 each PO DAILY 10/06/17 10/26/21 10/25/21 History ursodioL [Jose] 500 mg PO BIDWM 10/06/17 10/26/21 10/25/21 History [place]-3 Fatty Acids/Fish Oil [Fish 1 tab PO DAILY 09/24/19 10/26/21 10/25/21 History Oil] Iron [Iron 18 MG TAB] 1 tab PO BID 07/21/20 10/26/21 10/25/21 History Amoxicillin/K Clav Tab [Augmentin 1 tab PO BID #20 tab 10/05/21 10/26/21 10/25/21 Rx 875MG TAB] traMADoL [Ultram 50 MG tab] 50 mg PO TID PRN #40 tablet 10/05/21 10/26/21 10/25/21 Rx HYDROcodone/APAP 5-325 [[place] 1 each PO Q6HR PRN #45 tablet 10/12/21 10/26/21 10/25/21 Rx 5/325] Sulfamethoxazole/Trimethoprim 1 each PO BID 10 Days #20 tab 10/26/21 Unknown Rx [Bactrim DS TAB] traMADoL [Ultram 50 MG tab] 50 mg PO Q4HR PRN #40 tablet 10/26/21 Unknown Rx - Physical exam General appearance: mild distress (Buttocks discomfort) Lungs: Normal air movement Heart: Regular rate Gastrointestinal: other (Ostomy) Extremities: normal temperature, normal color - Brief post op/procedure progress note Date of procedure: 10/26/21 Pre-op diagnosis: Recurrent mucocele/fluid collection Post-op diagnosis: same Procedure: CT-guided drainage of the abdomen and pelvis. Anesthesia: local (With conscious sedation) Surgeon: SALVADOR ZAMUDIO Estimated blood loss: minimal Condition: stable - Hospital course Hospital course: The patient tolerated the procedure well. No immediate postprocedural complications. Discharged with tramadol and Bactrim. 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 - Disposition Condition at discharge: Stable Disposition: 01 HOME / SELF CARE / HOMELESS - Discharge Diagnoses (1) Abdominal fluid collection Status: Acute (2) Ulcerative colitis Status: Acute (3) Primary sclerosing cholangitis Status: Chronic Short Stay Discharge Plan Activity: advance as tolerated Weight Bearing Status: Weight Bear as Tolerated Diet: regular Wound: keep clean and dry Follow up with: PRIMARY CARE, [Primary Care Provider] - 7 Days Prescriptions: Sulfamethoxazole/Trimethoprim [Bactrim DS TAB] 1 each PO BID 10 Days #20 tab traMADoL [Ultram 50 MG tab] 50 mg PO Q4HR PRN #40 tablet PRN Reason: Pain
--- NOTE | 2021-10-26 15:13 | Operative Report ---
Operative Report Operative Report: EXAM: CT guided abdominal fluid collection 16 [place] drain placement CLINICAL INDICATION: Patient with ulcerative colitis, primary sclerosing cholangitis, status post proctocolectomy with recurrent mucocele which has been drained repeatedly in the past. 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 Has more foul- smelling mucus production than normal. DATE: 10/26/2021 CIGARETTE MAKER: SALVADOR ZAMUDIO MD MEDICATIONS: Conscious sedation using Versed and fentanyl was performed under guidance of radiologic nursing. Continuous cardiopulmonary monitoring was utilized. PROCEDURE: Following an explanation of the risks, benefits and alternatives; written informed consent was obtained. The patient was brought to the CT suite and placed in the prone position on the CT table. Corporate Security Officer CT was performed of the abdomen and pelvis. After determining the appropriate fistula site, the area was cleaned with Betadine. Wire was introduced through the fistula site near the cleft of the buttocks and CT was performed demonstrating that this was the correct fistula which communicated with the pelvic mucocele. The area was then enlarged with a hemostat opening up the fistula and serial dilatation was performed. A 16 Fr APD drain was advanced over the wire. CT scanning was performed confirming position of the drain in the center of the pelvic collection. The pigtail was secured and aspirated until no more material could be aspirated. After the drain was removed repeated dilatation of the fistula was performed with curved hemostats. The are was then flushed with 100 mL of betadine twice for a 45 minute dwell. The previously noted loculations allowing for focal filling of the left buttocks are now replaced with a masslike mucous structure that is not draining but merely enlarging. The 2 previously incised areas are now enlarging and allowing the mass to protrude through. The areas were treated with silver nitrate. The central portion of the patient's buttocks has a large area of granulation tissue. This is likely mixed with mucus tumor. The large focal area of granulation tissue on the exterior of the buttocks was then treated with silver nitrate to prevent oozing. Afterwards, this was cleaned with betadine. Sterile bandage was applied. The patient tolerated the procedure well. There were no immediate postprocedural complications. FINDINGS: 1. Initial CT demonstrates a large fluid collection in the pelvis extending into the buttocks. There is a satisfactory window for CT drainage. This CT was performed for localization purposes only. 2. Wire is coiled in the pelvic fluid collection. 3. CT documents placement of a 16 Fr drain in the pelvic fluid collection. 4. A total of approximately 80 mL of dark gelatinous material was aspirated through the drain and initial needle. IMPRESSION: Successful CT guided 16 [place] drain placement in a pelvic mucocele with fistula tract dilatation.
== END 2021-10-26 13:30 | disposition home or self-care (01) ==
LOC: CATH 06:32
PROVIDERS: ATTEND Radiology Diagnostic Radiology
DX: R19.00 Intra-abdominal and pelvic swelling, mass and lump, unspecified site (principal); K51.90 Ulcerative colitis, unspecified, without complications; K83.01 Primary sclerosing cholangitis; I10 Essential (primary) hypertension; Z79.899 Other long term (current) drug therapy; Z85.038 Personal history of other malignant neoplasm of large intestine; Z87.442 Personal history of urinary calculi; Z90.5 Acquired absence of kidney; Z80.0 Family history of malignant neoplasm of digestive organs; Z98.890 Other specified postprocedural states
CPT/HCPCS: 10160; 36415; 77012; 85025; 85610; 85730; 87076; 87116; 87186; J2250; J3010; J3490